=== PATIENT | male | born 1980 | race Caucasian/White ===

== ENCOUNTER 2017-05-19 03:57 | Emergency (ER) | payer OTHER ==
[2017-05-19 04:46] VITALS: BP 132/73; PULSE 75; TEMP 98.7; BMI 28.7
== END 2017-05-19 04:52 | disposition left against medical advice (07) ==
LOC: SUPCPDRO 03:57 → JER 03:57
DX: Z53.21 Procedure and treatment not carried out due to patient leaving prior to being seen by health care provider (principal)
CPT/HCPCS: 99281-25

== ENCOUNTER 2017-06-10 19:26 | Inpatient (IN) | payer OTHER ==
[2017-06-10 21:38] VITALS: BMI 31.0
--- NOTE | 2017-06-10 22:28 | HP ---
Admission ROS [facility] Chief Complaint: i am here for rehab from marijuana and pcp Allergies/Adverse Reactions: Allergies Allergy/AdvReac Type Severity Reaction Status Date / Time codeine AdvReac Verified 08/12/16 22:33 History of Present Illness: this 37 years old male with pcp and marijuana dependence,seekng rehab,never been been in treatment before but attending iop at [facility] nicotine dependence rupture of archilis tendon at age 21 anxiety depression - Ebola screening Have you traveled outside of the country in the last 21 days: No (N) Have you had contact with anyone from an Ebola affected area: No Have you been sick,other than usual withdrawal symptoms: No Do you have a fever: No - Review of Systems Constitutional: No Symptoms Reported EENT: reports: No Symptoms Reported Respiratory: reports: No Symptoms reported Cardiac: reports: No Symptoms Reported GI: reports: No Symptoms Reported : reports: No Symptoms Reported Musculoskeletal: reports: No Symptoms Reported Integumentary: reports: No Symptoms Reported Neuro: reports: No Symptoms reported Endocrine: reports: No Symptoms Reported Hematology: reports: No Symptoms Reported Psychiatric: reports: No Sypmtoms Reported (schizophrenia), Judgement Intact, Mood/Affect Appropiate, Anxious, Depressed, other Patient History - Patient Medical History Hx Anemia: No Hx Asthma: No Hx Chronic Obstructive Pulmonary Disease (COPD): No Hx Cancer: No Hx Cardiac Disorders: No Hx Congestive Heart Failure: No Hx Hypertension: No Hx Hypercholesterolemia: No Hx Pacemaker: No HX Cerebrovascular Accident: No Hx Seizures: No Hx Dementia: No Hx Diabetes: No Hx Liver Disease: No Hx Genitourinary Disorders: No Hx Sexually Transmitted Disorders: No Hx Renal Disease (ESRD): No Hx Thyroid Disease: No Hx Human Immunodeficiency Virus (HIV): No (last 04/19 negative) Hx Hepatitis C: No Hx Depression: Yes Hx Suicide Attempt: No Hx Bipolar Disorder: No Hx Schizophrenia: Yes (on meds) Other Medical History: no suicidal,no homicidal - Patient Surgical History Past Surgical History: Yes Hx Orthopedic Surgery: Yes (repair of achillis tendon left at age of 16 years) - PPD History Previous Implant?: Yes Documented Results: Negative w/o proof PPD to be Administered?: Yes - Smoking Cessation Smoking history: Current some day smoker Have you smoked in the past 12 months: Yes Aproximately how many cigarettes per day: 4 Hx Chewing Tobacco Use: No Initiated information on smoking cessation: Yes 'Breaking Loose' booklet given: 06/10/17 - Substance & Tx. History Hx Alcohol Use: No Hx Substance Use: No Substance Use Type: Marijuana Hx Substance Use Treatment: No - Substances Abused Marijuana/Hashish Route: Smoking Frequency: Daily Amount used: 100$ Age of first use: 17 Date of Last Use: 06/09/17 PCP Route: Smoking Frequency: Daily Age of first use: 18 Date of Last Use: 06/09/17 Family Disease History - Family Disease History Family History: Denies Admission Physical Exam [facility] - Vital Signs Vital Signs: Vital Signs - 24 hr 06/10/17 21:37 Temperature 98.0 F Pulse Rate 67 Respiratory 18 Rate Blood Pressure 112/72 - Physical General Appearance: Yes: Within Normal Limits HEENTM: Yes: Within Normal Limits, Normal ENT Inspection, LEILA Respiratory: Yes: Lungs Clear, Normal Breath Sounds, No Respiratory Distress Neck: Yes: Within Normal Limits, Supple, Trachea in good position Breast: Yes: Within Normal Limits Cardiology: Yes: Within Normal Limits, Regular Rhythm, Regular Rate, S1, S2 Abdominal: Yes: Within Normal Limits, Normal Bowel Sounds, Non Tender, Flat, Soft Genitourinary: Yes: Within Normal Limits Back: Yes: Within Normal Limits Musculoskeletal: Yes: Within Normal Limits, full range of Motion Extremities: Yes: Within Normal Limits, Normal Inspection, Normal Range of Motion Neurological: Yes: Within Normal Limits, auto clocks repairer II-XII NML intact, Alert Integumentary: Yes: Within Normal Limits Lymphatic: Yes: Within Normal Limits - Diagnostic (1) Cannabis dependence Current Visit: Yes Status: Acute (2) PCP dependence Current Visit: Yes Status: Acute (3) Nicotine dependence Current Visit: Yes Status: Acute (4) PTSD (post-traumatic stress disorder) Current Visit: Yes Status: Acute (5) Anxiety with depression Current Visit: Yes Status: Acute Cleared for Admission [facility] - Detox or Rehab Claeared for Rehab Admission: Yes [facility] Breath Alcohol Content Breath Alcohol Content: 0 Urine Drug Screen - Results Urine Drug Screen Results: THC-Marijuana, BZO-Benzodiazepines
[2017-06-10] MEDS ORDERED: MAGNESIUM HYDROX 2400MG/30ML ORAL SUSPENSION 30 ML CUP PO PRN (22:44)
[2017-06-10] MEDS ORDERED: LOPERAMIDE HCL 2 MG CAPSULE PO PRN (22:44)
[2017-06-10] MEDS ORDERED: IBUPROFEN 400 MG TABLET (FP) PO PRN (22:44)
[2017-06-10] MEDS ORDERED: MAGNESIUM CITRATE 300 ML BOTTLE PO PRN (22:44)
[2017-06-10] MEDS ORDERED: ACETAMINOPHEN 325 MG TABLET (FP) PO PRN (22:44)
[2017-06-10] MEDS ORDERED: guaiFENesin/D-METHORPHAN HB 10 ML UNIT-DOSE CUPS PO PRN (22:44)
[2017-06-10] MEDS ORDERED: hydrOXYzine PAMOATE 50 MG CAPSULE (FP) PO PRN (22:44)
[2017-06-10] MEDS ORDERED: MAG HYDROX/AL HYDROX/SIMETH 30 ML UNIT-DOSE CUP PO PRN (22:44)
[2017-06-10] MEDS ORDERED: MENTHOL/PHENOL 1 EACH UD MM PRN (22:44)
[2017-06-10] MEDS ORDERED: diphenhydrAMINE HCL 50 MG CAPSULE PO PRN (22:44)
[2017-06-10] MEDS ORDERED: P-EPHED 60MG/TRIPROLIDI 2.5MG TABLET PO PRN (22:44)
[2017-06-11] MEDS ORDERED: TUBERCULIN PPD 5 TU/0.1ML VIAL ID ONE (06:47)
[2017-06-11] MEDS: PRENATAL VITAMINS W/ FOLIC ACID TABLET (FP) PO SCH (11:04)
[2017-06-11 13:27] LABS: MCH 27.4 pg (25.7-33.7); MCHC 32.1 g/dl (32.0-35.9); MEAN CELL VOLUME 85.2 fl (80-96); MEAN PLT VOLUME 8.6 fl (7.5-11.1); PLATELET COUNT 347 K/MM3 (134-434); WHITE BLOOD COUNT 7.3 K/mm3 (4.0-10.0)
--- NOTE | 2017-06-11 13:32 | HP ---
Psychiatrist Admission - Data Date of interview: 06/11/17 Admission source: [facility] Identifying data: This is the first 5N inpatient rehab admission for this 37 year old single male residing in [place] with his parents, he is unemployed and father of 5. Medical History: Repaired of achillis tendon Lt at the age of 16 years, smokes cigarettes 4 a day. Psychiatric History: Patient is poor historian, he admits was hospiatlized twice , most recent last month at [facility] for deperssed mood for 7 days, reports was diagnosed as "depression, anxiety, ptsd and schizophrenia". He currently on Trazodone 100 mg po hs and Risperdal 1 mg daily. Physical/Sexual Abuse/Trauma History: Patient denies Additional Comment: Reports having multiple restraining orders due to his due to violent behaviors. Vital Signs: Vital Signs - 24 hr 06/10/17 06/11/17 06/11/17 21:37 03:30 06:59 Temperature 98.0 F 98.0 F Pulse Rate 67 76 Respiratory 18 18 18 Rate Blood Pressure 112/72 120/72 Allergies/Adverse Reactions: Allergies Allergy/AdvReac Type Severity Reaction Status Date / Time codeine AdvReac Verified 06/11/17 01:31 Date of last physical exam: 06/10/17 Concur with the findings of this exam: Yes - Substance Abuse/Tx History Hx Alcohol Use: No Hx Substance Use: Yes (PCP started at age of 18, daily use for $80) Substance Use Type: Marijuana (daily use , t=started at age of 17) Hx Substance Use Treatment: Yes ([facility]) - Admission Criteria Previous failed treatment: Yes Poor recovery environment: Yes Mental Status Exam - Mental Status Exam Alert and Oriented to: Time, Place, Person Cognitive Function: Grossly Intact Patient Appearance: Well Groomed Mood: Depressed, Sad, Irritable Affect: Appropriate, Mood Congruent, Flat, Constricted Patient Behavior: Cooperative Speech Pattern: Clear Voice Loudness: Normal Thought Process: Goal Oriented Thought Disorder: Not Present Hallucinations: Denies Suicidal Ideation: Denies Homicidal Ideation: Denies Insight/Judgement: Fair Sleep: Fair Appetite: Fair Muscle strength/Tone: Normal Gait/Station: Normal Psychiatric Findings - Problem List ([place] 1, 2,3) (1) Cannabis dependence Current Visit: Yes Status: Acute (2) Nicotine dependence Current Visit: Yes Status: Acute (3) PCP dependence Current Visit: Yes Status: Acute (4) PTSD (post-traumatic stress disorder) Current Visit: Yes Status: Acute (5) Schizoaffective disorder Current Visit: Yes Status: Acute - Initial Treatment Plan Initial Treatment Plan: will continue his current medications, monitor progress as needed.
[2017-06-11 13:36] LABS: ALBUMIN 3.2 g/dl (3.4-5.0); ALK PHOS 45 U/L (45-117); ANION GAP 6 (8-16); BILIRUBIN,TOTAL 0.3 mg/dL (0.2-1.0); CALCIUM 8.5 mg/dL (8.5-10.1); CO2 29 mmol/L (21-32); CREATININE 0.9 mg/dL (0.7-1.3); GLUCOSE,RANDOM 85 mg/dL (74-106); SGOT/AST 10 U/L (15-37); SGPT/ALT 22 U/L (12-78); TOT PROT 6.3 g/dl (6.4-8.2)
--- NOTE | 2017-06-11 14:50 | EKG ---
Test Reason : Blood Pressure : / mmHG Vent. Rate : 072 BPM Atrial Rate : 072 BPM P-R Int : 130 ms QRS Dur : 100 ms QT Int : 380 ms P-R-T Axes : 060 076 058 degrees QTc Int : 416 ms NORMAL SINUS RHYTHM NORMAL ECG WHEN COMPARED WITH ECG OF 13-AUG-2016 18:19, NO SIGNIFICANT CHANGE WAS FOUND Confirmed by SHRUTHI DIXON MD ([id number]) on 06/11/2017 2:49:48 PM Referred By: Confirmed By:SHRUTIH DIXON MD
[2017-06-11] MEDS: traZODone HCL 100 MG TABLET (FP) PO SCH (21:30)
[2017-06-11] MEDS: THIAMINE HCL 100 MG TABLET (FP) PO SCH (21:30)
[2017-06-12] MEDS: PRENATAL VITAMINS W/ FOLIC ACID TABLET (FP) PO SCH (12:25)
[2017-06-12] MEDS: risperiDONE 1 MG TABLET (FP) PO SCH (12:26)
[2017-06-12] MEDS: THIAMINE HCL 100 MG TABLET (FP) PO SCH (21:40)
[2017-06-12] MEDS: traZODone HCL 100 MG TABLET (FP) PO SCH (21:40)
[2017-06-13 07:14] VITALS: BP 113/65; PULSE 73; TEMP 97.6
[2017-06-13] MEDS: PRENATAL VITAMINS W/ FOLIC ACID TABLET (FP) PO SCH (10:04)
[2017-06-13] MEDS: risperiDONE 1 MG TABLET (FP) PO SCH (10:04)
--- NOTE | 2017-06-13 14:46 | PN ---
Psychiatric Progress Note Vital Signs: Vital Signs Period Temp Pulse Resp BP Sys/Reyes Pulse Ox Last 24 Hr 97.6 F 73 16-18 113/65 Date of Session: 06/13/17 Chief Complaint:: discharge visit HPI: Patient is a 37 year old male with history of cannabis, PCP, nicotine dependence comorbid PTSD and Schizoaffective disorder, reports that he decided to leave treatment AMA.. Current Medications: Active Medications Generic Name Dose Route Start Last Admin Trade Name Freq PRN Reason Stop Dose Admin Acetaminophen 650 mg 06/10/17 22:44 Tylenol - PO Q4H PRN PAIN Al Hydroxide/Mg Hydroxide 30 ml 06/10/17 22:44 Mylanta Oral Suspension - PO Q6H PRN DYSPEPSIA Diphenhydramine HCl 50 mg 06/10/17 22:44 Benadryl - PO HSMR1 PRN INSOMNIA Eucalyptus/Menthol/Phenol/Sorbitol 1 each 06/10/17 22:44 Cepastat Lozenge - MM Q4H PRN SORE THROAT Guaifenesin 10 ml 06/10/17 22:44 Robitussin Dm - PO Q6H PRN COUGH Hydroxyzine Pamoate 50 mg 06/10/17 22:44 Vistaril - PO Q4H PRN AGITATION Ibuprofen 400 mg 06/10/17 22:44 Motrin - PO Q6H PRN SEVERE PAIN Loperamide HCl 4 mg 06/10/17 22:44 Imodium - PO Q6H PRN DIARRHEA Magnesium Citrate 300 ml 06/10/17 22:44 Citroma - PO Q48H PRN CONSTIPATION Magnesium Hydroxide 30 ml 06/10/17 22:44 Milk Of Magnesia - PO DAILY PRN CONSTIPATION Multivit/Folic Acid/Iron 1 tab 06/11/17 10:00 06/13/17 10:04 Vitamins (Sjr) - PO Not Given DAILY D[facility]SON Pseudoephedrine/Triprolidine 1 combo 06/10/17 22:44 Actifed - PO TID PRN NASAL CONGESTION Risperidone 1 mg 06/12/17 10:00 06/13/17 10:04 Risperdal - PO Not Given DAILY DICKSON Thiamine HCl 100 mg 06/11/17 22:00 06/12/17 21:40 Vitamin B1 - PO Not Given HS DICKSON Trazodone HCl 100 mg 06/11/17 22:00 08/10/17 21:40 Desyrel - PO Not Given HS [facility] Current Side Effect: No Lab tests ordered: No Lab tests reviewed: Yes Provider note:: Met with the patient process his his decision, he reports that he needs ti take care of his personal issues, patient was encouraged to stay and focus on his recovery but adamant to leave. Patient responded well to Risperdal and Trazodone, not side-effects reported, scripts e-transferred to his pharmacy. Patient is stable for AMA. Total face to face time:: 20 Mental Status Exam - Mental Status Exam Alert and Oriented to: Time, Place, Person Cognitive Function: Grossly Intact Patient Appearance: Well Groomed Mood: Hopeful Affect: Appropriate, Mood Congruent Patient Behavior: Appropriate, Cooperative Speech Pattern: Clear, Appropriate Voice Loudness: Normal Thought Process: Goal Oriented Thought Disorder: Not Present Hallucinations: Denies Suicidal Ideation: Denies Homicidal Ideation: Denies Insight/Judgement: Fair Sleep: Fair Appetite: Fair Muscle strength/Tone: Normal Gait/Station: Normal Psychiatric Treatment Plan - Problem List (1) Cannabis dependence Current Visit: Yes (2) Nicotine dependence Current Visit: Yes (3) PCP dependence Current Visit: Yes (4) PTSD (post-traumatic stress disorder) Current Visit: Yes (5) Schizoaffective disorder Current Visit: Yes
[2017-06-13 16:11] LABS: URINE APPEARANCE CLEAR; URINE BILIRUBIN NEGATIVE (NEGATIVE); URINE BLOOD NEGATIVE (NEGATIVE); URINE COLOR LTYELLOW; URINE GLUCOSE (UA) NEGATIVE (NEGATIVE); URINE KETONE NEGATIVE (NEGATIVE); URINE LEUK ESTERASE NEGATIVE (NEGATIVE); URINE NITRITE NEGATIVE (NEGATIVE); URINE PROTEIN NEGATIVE (NEGATIVE); URINE UROBILINOGEN NEGATIVE mg/dL (0.2-1.0)
== END 2017-06-13 15:15 | disposition left against medical advice (07) | DRG 770 ==
LOC: YASAS 19:26 → UNDOADMIN 21:47 → Y3W 21:47 → Y5N 22:56
PROVIDERS: ADMIT Psychiatry & Neurology Psychiatry; ATTEND Psychiatry & Neurology Psychiatry
PROC: HZ42ZZZ Group Counseling for Substance Abuse Treatment, Cognitive-Behavioral (ICD-10-PCS; principal; 2017-06-10)
DX: F16.20 Hallucinogen dependence, uncomplicated (principal); F12.20 Cannabis dependence, uncomplicated; F17.210 Nicotine dependence, cigarettes, uncomplicated; F41.8 Other specified anxiety disorders; F43.10 Post-traumatic stress disorder, unspecified; F25.9 Schizoaffective disorder, unspecified; Z88.5 Allergy status to narcotic agent
CPT/HCPCS: 36415; 80053; 81003; 85027; 86593; 93005; 93010

== ENCOUNTER 2017-07-12 16:24 | Emergency (ER) | payer OTHER ==
[2017-07-12 16:34] VITALS: BP 134/90; PULSE 107; TEMP 98.4; BMI 31.1
[2017-07-12] MEDS ORDERED: IBUPROFEN 600 MG TABLET (FP) PO ONE (16:57)
[2017-07-12] MEDS: IBUPROFEN 600 MG TABLET (FP) PO ONE ×2 (17:08→17:24)
[2017-07-12] MEDS ORDERED: IBUPROFEN 400 MG TABLET (FP) PO ONE ×2 (17:15→17:20)
[2017-07-12] MEDS ORDERED: diazePAM 5 MG TABLET PO ONE (17:16)
--- NOTE | 2017-07-12 17:18 | PDOC ---
"History of Present Illness - General Chief Complaint: Back Pain Stated Complaint: BACK PAIN Time Seen by Provider: 07/12/17 16:48 History Source: Patient Exam Limitations: No Limitations - History of Present Illness Initial Comments: 07/12/17 17:21 My chief complaint: Right sided neck pain and right upper back pain with stiffness of neck History of present illness: Patient is a 37-year-old male with a history of anxiety and depression and and drug abuse with cannabis and PCP here today complaining of right lateral neck and upper back pain since turning his head in taking pictures. Patient reports having a herniated disc of C6-C7. Patient denies any radiation of pain down arms or legs or any weakness of arms. Patient denies any numbness of arms. Patient is keeping his health head tilted towards the right. Timing/Duration: getting worse Severity: severe (RT. SIDED NECK PAIN AND UPPER BACK PAIN ) Associated Symptoms: reports: denies symptoms Past History - Past Medical History Allergies/Adverse Reactions: Allergies Allergy/AdvReac Type Severity Reaction Status Date / Time codeine AdvReac Verified 07/12/17 16:34 Home Medications: Ambulatory Orders Risperidone [Risperdal] 1 mg PO DAILY 06/10/17 Trazodone HCl [Desyrel -] 100 mg PO HS 06/10/17 Risperidone [Risperdal -] 1 mg PO DAILY #30 tablet 06/13/17 Trazodone HCl [Desyrel -] 100 mg PO HS #30 tablet 06/13/17 Anemia: No Asthma: No Cancer: No Cardiac Disorders: No CVA: No COPD: No CHF: No Dementia: No Diabetes: No GI Disorders: No Disorders: No HTN: No Hypercholesterolemia: No Kidney Stones: No Liver Disease: No Psychiatric Problems: Yes (h/o anxiety/depression ) Suicide Attempt (Hx): No Seizures: No Thyroid Disease: No - Surgical History Abdominal Surgery: No Appendectomy: No Cardiac Surgery: No Cholecystectomy: No Lung Surgery: No Neurologic Surgery: No Orthopedic Surgery: Yes (repair of achillis tendon left at age of 16 years) - Reproductive History Testicular Surgery: No - Immunization History Immunization Up to Date: Yes - Psycho/Social/Smoking Cessation Hx Anxiety: No Suicidal Ideation: No Smoking History: Never smoked Have you smoked in the past 12 months: Yes Number of Cigarettes Smoked Daily: 4 'Breaking Loose' booklet given: 06/10/17 Hx Alcohol Use: No Drug/Substance Use Hx: No Substance Use Type: None Hx Substance Use Treatment: Yes ([facility]) Review of Systems - Review of Systems Able to Perform ROS?: Yes Constitutional: No: Symptoms Reported HEENTM: No: Symptoms Reported Respiratory: No: Symptoms reported Cardiac (ROS): No: Symptoms Reported ABD/GI: No: Symptoms Reported : No: Symptoms Reported Musculoskeletal: Yes: Back Pain (rt. upper back pian ), Neck Pain (rt. sided lateral neck pain ) Integumentary: No: Symptoms Reported Neurological: No: Symptoms reported *Physical Exam - Vital Signs Last Vital Signs Temp Pulse Resp BP Pulse Ox 98.4 F 107 H 20 134/90 98 07/12/17 16:31 07/12/17 16:31 07/12/17 16:31 07/12/17 16:31 07/12/17 16:31 - Physical Exam General Appearance: Yes: Appropriately Dressed Neck: positive: Tender (rt. lateral ), Tender lateral (rt. lateral neck ). negative: Lymphadenopathy (R), Lymphadenopathy (L), Rigidity Respiratory/Chest: positive: Lungs Clear, Normal Breath Sounds. negative: Chest Tender, Respiratory Distress Cardiovascular: positive: Regular Rhythm, Regular Rate, S1, S2 Musculoskeletal: positive: Normal Inspection. negative: CVA Tenderness, CVA Tenderness (R), CVA Tenderness (L), Decreased Range of Motion, Vertebral Tenderness Extremity: positive: Normal Capillary Refill, Normal Inspection, Normal Range of Motion, Tender (rt. upper thoracic paraspinal muscle tenderness) Integumentary: positive: Normal Color Neurologic: positive: Alert, Normal Response, Motor Strength 5/5 (upper extremities), Responsive. negative: Respond to painful stimul, Numbness, Sensory Deficit (arms ) ED Treatment Course - Medications Given in the ED: ED Medications Discontinued Medications Generic Name Dose Route Start Last Admin Trade Name Freq PRN Reason Stop Dose Admin Ibuprofen 600 mg 07/12/17 16:56 07/12/17 17:08 Motrin - PO 07/12/17 16:57 600 mg ONCE ONE Administration Medical Decision Making - Medical Decision Making 07/12/17 17:24 Patient is a 37-year-old male with a history of anxiety and depression and and drug abuse with cannabis and PCP here today complaining of right lateral neck and upper back pain since turning his head in taking pictures. Patient reports having a herniated disc of C6-C7. Patient denies any radiation of pain down arms or legs or any weakness of arms. Patient denies any numbness of arms. Patient is keeping his health head tilted towards the right. 07/12/17 17:26 Right lateral neck pain with muscle spasm Right upper back pain PLAN: xray cervical spine pain STRAIGHTENING OF NORMAL CERVICAL CURVATURE ibuprofen 800 mg po now valium 5 mg po now 07/12/17 18:24 LEAD MAINTENANCE TECHNICIAN CHECKED ta Detail Level: Printer-Friendly View Extended View Confidential Drug Utilization Report Search Terms: Rajendra Cruz, 1980 Search Date: 07/12/2017 05:59:33 PM The Drug Utilization Report below displays all of the controlled substance prescriptions, if any, that your patient has filled in the last twelve months. The information displayed on this report is compiled from pharmacy submissions to the Department, and accurately reflects the information as submitted by the pharmacies. This report was requested by: Leny Bah | Reference #: [id number] 07/12/17 18:50 07/12/17 19:17 PT. REQUESTING PERCOCET DUE TO PT BEING IN [facility] IN 06/19 TOLD PT. I WOULD ORDER CYCLOBENZAPRINE AND NAPROSYN HE DOES NOT WANT THESE MEDICATIONS SAYS HE HAS NAPROSYN AT HOME PT WILL FOLLOW UP WITH HIS LEAD MAINTENANCE TECHNICIAN ON DOES NOT WANT ORTH REFERRAL *DC/Admit/Observation/Transfer Diagnosis at time of Disposition: Neck pain on right side, Acute upper back pain - Discharge Dispostion Disposition: HOME Condition at time of disposition: Stable - Patient Instructions Additional Instructions: Take ibuprofen or Naprosyn as directed by nuclear waste management engineer for pain Avoid any strenuous activities or exercise Return to emergency room if at any worsening symptoms or numbness of arms or hands Patient voiced understanding of discharge instructions and all questions were answered"
[2017-07-12] MEDS ORDERED: diazePAM 5 MG TABLET ONE (17:20)
== END 2017-07-12 19:25 | disposition home or self-care (01) ==
LOC: JERFT 16:24
DX: M54.2 Cervicalgia (principal); M62.830 Muscle spasm of back
CPT/HCPCS: 72050-TC; 99281-25

== ENCOUNTER 2017-07-15 03:26 | Emergency (ER) | payer OTHER ==
[2017-07-15] MEDS ORDERED: IBUPROFEN 400 MG TABLET (FP) PO ONE (03:51)
--- NOTE | 2017-07-15 03:51 | PDOC ---
History of Present Illness - General Stated Complaint: NECK PAIN History Source: Patient Exam Limitations: No Limitations - History of Present Illness Initial Comments: 07/15/17 03:54 37y M hx of cervical radiculopathy at C6/7 presents with back pain. The pt states he has been following up at [facility] for his back pain and was referred for PT/pain management but was locked up before he could continue. He comes today due to persistent intermittent neck pain, pt does endorse some radaition of pain down the top of his L armt hat is a tingling sensation. No weakness, fever/chills, n/v, back pain. symtoms are exacerbated when he turnis his head quickly pt unchanged from prior. pt not taking any OTC meds at home. denies any urinary or bowel incontinence Past History - Past Medical History Allergies/Adverse Reactions: Allergies Allergy/AdvReac Type Severity Reaction Status Date / Time codeine AdvReac Verified 07/15/17 03:47 Home Medications: Ambulatory Orders Cyclobenzaprine HCl [Flexeril -] 10 mg PO BID PRN #15 tablet 07/15/17 Ibuprofen [Motrin -] 600 mg PO TID #15 tablet 07/15/17 Anemia: No Asthma: No Cancer: No Cardiac Disorders: No CVA: No COPD: No CHF: No Dementia: No Diabetes: No GI Disorders: No Disorders: No HTN: No Hypercholesterolemia: No Kidney Stones: No Liver Disease: No Psychiatric Problems: Yes (h/o anxiety/depression ) Suicide Attempt (Hx): No Seizures: No Thyroid Disease: No - Surgical History Abdominal Surgery: No Appendectomy: No Cardiac Surgery: No Cholecystectomy: No Lung Surgery: No Neurologic Surgery: No Orthopedic Surgery: Yes (repair of achillis tendon left at age of 16 years) - Reproductive History Testicular Surgery: No - Immunization History Immunization Up to Date: Yes - Psycho/Social/Smoking Cessation Hx Anxiety: No Suicidal Ideation: No Smoking History: Never smoked Have you smoked in the past 12 months: No Number of Cigarettes Smoked Daily: 4 Information on smoking cessation initiated: No 'Breaking Loose' booklet given: 06/10/17 Hx Alcohol Use: No Drug/Substance Use Hx: No Substance Use Type: None Hx Substance Use Treatment: Yes ([facility]) Review of Systems - Review of Systems Able to Perform ROS?: Yes Comments:: 07/15/17 03:55 Constitutional - no reported Fever, Chills, HEENT: +neck pain with L arm tinglingno reported vision changes, sore throat Respiratory: no reported cough, sob, hemoptysis Cardiac: no reported chest pain, palpitations, light headedness, leg swelling Abd/GI: no reported abd pain, nausea, vomiting, blood per rectum, melena, diarrhea : no reported dysuria, frequency, discharge Musculskelatal - no reported back pain, joint swelling skin - no reported bruising, erythema, rash neurological: no reported headache, numbness, focal weakness, ataxia, hematologic: no reported anemia, easy bruising, easy bleeding *Physical Exam - Vital Signs Last Vital Signs Temp Pulse Resp BP Pulse Ox 98.7 F 90 14 142/86 99 07/15/17 03:47 07/15/17 03:47 07/15/17 03:47 07/15/17 03:47 07/15/17 03:47 - Physical Exam Comments: 07/15/17 03:56 GENERAL: The patient is awake, alert, and fully oriented, Nontoxic - in no acute distress. HEAD: Normocephalic, atraumatic. EYES: extraocular movements intact, sclera anicteric, conjunctiva clear. NECK/back: Normal range of motion, supple, no focal bony tenderness EXTREMITIES: Normal range of motion, no edema. No clubbing or cyanosis. No cords, erythema, or tenderness. NEUROLOGICAL: strength intact with wide area network administrator strength elbow flexion/extension, shoulder flexion/exntesion, sensation intact and symmetric in upper and lower extreities. Medical Decision Making - Medical Decision Making 07/15/17 03:57 suspect exacerbation of his cervical radiculopathy will give NSAIDS and muscle relaxant pt has standing apt with his doctor on friday supportive care at home I discussed the physical exam findings, ancillary test results and final diagnoses with the patient. I answered all of the patient's questions. The patient was satisfied with the care received and felt comfortable with the discharge plan and treatment plan. The patient will call their primary care physician within 24 hours to arrange follow-up and will return to the Emergency Department with any new, persistent or worsening symptoms. *DC/Admit/Observation/Transfer Diagnosis at time of Disposition: Cervical radiculopathy at C6 - Discharge Dispostion Disposition: HOME Condition at time of disposition: Improved Admit: No - Prescriptions Prescriptions: Cyclobenzaprine HCl [Flexeril -] 10 mg PO BID PRN #15 tablet PRN Reason: Pain Ibuprofen [Motrin -] 600 mg PO TID #15 tablet - Referrals Referrals: [facility] [Provider Group] - Patient Instructions Printed Discharge Instructions: DI for Cervical Radiculopathy Additional Instructions: Return to the emergency department immediately with ANY new, persistent or worsening symptoms. Take motrin and tylenol as needed for your pain. Use flexeril as prescribed use a heating pad for comfort. You MUST call and follow up with your doctor at the [facility] for further evaluation of your symptoms. Results were discussed with you. Please make sure your doctor reviews the results of your emergency evaluation. Print Language: PORTUGUESE
[2017-07-15] MEDS ORDERED: CYCLOBENZAPRINE HCL 10 MG TABLET (FP) PO ONE (03:52)
[2017-07-15] MEDS ORDERED: CYCLOBENZAPRINE HCL 10 MG TABLET (FP) ONE (03:57)
[2017-07-15] MEDS ORDERED: IBUPROFEN 600 MG TABLET (FP) PO ONE (03:58)
[2017-07-15 04:08] VITALS: BP 142/86; PULSE 90; TEMP 98.7; BMI 31.9
== END 2017-07-15 04:20 | disposition home or self-care (01) ==
LOC: JER 03:26
DX: M54.12 Radiculopathy, cervical region (principal)
CPT/HCPCS: 99281-25

== ENCOUNTER 2017-07-24 06:16 | Emergency (ER) | payer OTHER ==
[2017-07-24 06:29] VITALS: TEMP 98.7; BMI 31.9
[2017-07-24] MEDS ORDERED: KETOROLAC TROMETHAMINE 60 MG/2 ML VIAL IM ONE (07:21)
--- NOTE | 2017-07-24 07:26 | PDOC ---
History of Present Illness - General Chief Complaint: Pain, Acute Stated Complaint: NECK PAIN Time Seen by Provider: 07/24/17 07:18 History Source: Patient Exam Limitations: No Limitations - History of Present Illness Initial Comments: 07/24/17 07:21 37 yr male with chronic pain to his neck states "herniated disc" for over one year. Pt states he was "locked up" and has not had any treatment . Pt was seen in ER last week for same. Pt has appointment next week with is PMD. Pt has no PMHX, no allergies. Pt states pain radiates to the left arm causing numbness and tingling to the left arm, nv intact. 07/24/17 07:22 07/24/17 07:45 Severity: reports: moderate Pain Location: reports: neck Method of Injury: Yes: unknown Modifying Factors: improves with: None Loss of Consciousness: no loss of consciousness Associated Symptoms (Fall): denies symptoms Past History - Past Medical History Allergies/Adverse Reactions: Allergies Allergy/AdvReac Type Severity Reaction Status Date / Time codeine AdvReac Verified 07/24/17 06:26 Home Medications: Ambulatory Orders Cyclobenzaprine HCl [Flexeril -] 10 mg PO BID PRN #15 tablet 07/15/17 Ibuprofen [Motrin -] 600 mg PO TID #15 tablet 07/15/17 Cyclobenzaprine HCl [Flexeril -] 10 mg PO TID PRN #21 tablet 07/24/17 Ketorolac Tromethamine [Toradol] 10 mg PO Q6H PRN #16 tablet 07/24/17 Anemia: No Asthma: No Cancer: No Cardiac Disorders: No CVA: No COPD: No CHF: No Dementia: No Diabetes: No GI Disorders: No Disorders: No HTN: No Hypercholesterolemia: No Kidney Stones: No Liver Disease: No Psychiatric Problems: Yes (h/o anxiety/depression ) Seizures: No Thyroid Disease: No - Surgical History Abdominal Surgery: No Appendectomy: No Cardiac Surgery: No Cholecystectomy: No Lung Surgery: No Neurologic Surgery: No Orthopedic Surgery: Yes (repair of achillis tendon left at age of 16 years) - Reproductive History Testicular Surgery: No - Immunization History Immunization Up to Date: Yes - Suicide/Smoking/Psychosocial Hx Smoking History: Current every day smoker Have you smoked in the past 12 months: No Number of Cigarettes Smoked Daily: 20 Information on smoking cessation initiated: No 'Breaking Loose' booklet given: 06/10/17 Hx Alcohol Use: No Drug/Substance Use Hx: No Substance Use Type: None Hx Substance Use Treatment: Yes ([facility]) Trauma Specific PMHX - Complaint Specific PMHX Arthritis: No *Physical Exam - Vital Signs Last Vital Signs Temp Pulse Resp BP Pulse Ox 98.7 F 105 H 14 127/83 95 07/24/17 06:27 07/24/17 06:27 07/24/17 06:27 07/24/17 06:07/24/17 06:27 - Physical Exam General Appearance: Yes: Nourished, Appropriately Dressed HEENT: positive: EOMI, LEILA, Normal ENT Inspection, Symmetrical, TMs Normal, Pharynx Normal Neck: positive: Tender, Supple, Tender lateral. negative: Decreased range of motion (FROM of the neck ), Rigidity Respiratory/Chest: positive: Lungs Clear, Normal Breath Sounds. negative: Chest Tender, Accessory Muscle Use Cardiovascular: positive: Regular Rhythm, Regular Rate Gastrointestinal/Abdominal: positive: Normal Bowel Sounds, Soft Musculoskeletal: positive: Normal Inspection. negative: CVA Tenderness, CVA Tenderness (R), Decreased Range of Motion, Muscle Spasm, Vertebral Tenderness Extremity: positive: Normal Capillary Refill, Normal Inspection, Normal Range of Motion, Other (strength intact to bilateral UE, nv intact ). 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 pt ambulatory with steady gait. *DC/Admit/Observation/Transfer Diagnosis at time of Disposition: Chronic neck pain - Discharge Dispostion Disposition: HOME Condition at time of disposition: Good - Prescriptions Prescriptions: Cyclobenzaprine HCl [Flexeril -] 10 mg PO TID PRN #21 tablet PRN Reason: Muscle Spasms Ketorolac Tromethamine [Toradol] 10 mg PO Q6H PRN #16 tablet PRN Reason: Pain - Referrals Referrals: Justin Yu MD [Staff Physician] - - Patient Instructions Additional Instructions: please follow with your doctor as planned or with the orthopedist for further evaluation of neck pain avoid heavy lifting or bending, apply warm compresses to the back of your neck every 3hrs for 20 minutes this can help with pain take the medication as prescribed DO NOT DRIVE, OPERATE MACHINERY OR DRINK ALCOHOL WHILE TAKING FLEXERIL
[2017-07-24] MEDS ORDERED: KETOROLAC TROMETHAMINE 60 MG/2 ML VIAL ONE (07:42)
[2017-07-24] MEDS ORDERED: CYCLOBENZAPRINE HCL 5 MG TABLET PO STA (07:46)
[2017-07-24] MEDS ORDERED: CYCLOBENZAPRINE HCL 10 MG TABLET (FP) ONE (07:48)
[2017-07-24 08:51] VITALS: BP 122/75; PULSE 75
== END 2017-07-24 08:51 | disposition home or self-care (01) ==
LOC: JER 06:16
PROC: 3E0233Z Introduction of Anti-inflammatory into Muscle, Percutaneous Approach (ICD-10-PCS; principal; 2017-07-24)
DX: M54.2 Cervicalgia (principal); G89.29 Other chronic pain; F41.8 Other specified anxiety disorders; F17.210 Nicotine dependence, cigarettes, uncomplicated
CPT/HCPCS: 99284-25

== ENCOUNTER 2017-07-31 00:12 | Emergency (ER) | payer OTHER ==
--- NOTE | 2017-07-31 01:17 | PDOC ---
History of Present Illness - General Stated Complaint: MIGRAINE & NECK PAIN Time Seen by Provider: 07/31/17 01:17 - History of Present Illness Initial Comments: 37 year old male with PMH of cervical radiculopathy at C6-C7 presents with pain in the same area. States that he fell one week prior and was imaged here which revealed moderate C6-C7 disk degeneration. He was given flexeril and ibuprofen with some relief. He keeps missing his primary care and other supportive medical appointments secondary to legal issues. He is not complaining of any radicular symptoms currently and only admits to localized pain around his lower cervical spine and some headaches. Denies fevers, chills, nausea, vomiting, diarrhea, cough, or other sick symptoms. 07/31/17 03:14 Past History - Past Medical History Allergies/Adverse Reactions: Allergies Allergy/AdvReac Type Severity Reaction Status Date / Time codeine AdvReac Verified 07/31/17 01:35 Home Medications: Ambulatory Orders Cyclobenzaprine HCl [Flexeril -] 10 mg PO BID PRN #15 tablet 07/15/17 Ibuprofen [Motrin -] 600 mg PO TID #15 tablet 07/15/17 Cyclobenzaprine HCl [Flexeril -] 10 mg PO TID PRN #21 tablet 07/24/17 Ketorolac Tromethamine [Toradol] 10 mg PO Q6H PRN #16 tablet 07/24/17 Anemia: No Asthma: No Cancer: No Cardiac Disorders: No CVA: No COPD: No CHF: No Dementia: No Diabetes: No GI Disorders: No Disorders: No HTN: No Hypercholesterolemia: No Kidney Stones: No Liver Disease: No Psychiatric Problems: Yes (h/o anxiety/depression ) Seizures: No Thyroid Disease: No - Surgical History Abdominal Surgery: No Appendectomy: No Cardiac Surgery: No Cholecystectomy: No Lung Surgery: No Neurologic Surgery: No Orthopedic Surgery: Yes (repair of achillis tendon left at age of 16 years) - Reproductive History Testicular Surgery: No - Immunization History Immunization Up to Date: Yes - Suicide/Smoking/Psychosocial Hx Smoking History: Current every day smoker Have you smoked in the past 12 months: No Number of Cigarettes Smoked Daily: 20 'Breaking Loose' booklet given: 06/10/17 Hx Alcohol Use: No Drug/Substance Use Hx: No Substance Use Type: None Hx Substance Use Treatment: Yes ([facility]) Review of Systems - Review of Systems Constitutional: No: Chills, Diaphoresis, Fever, Loss of Appetite HEENTM: No: Blurred Vision, Tearing, Recent change in vision, Double Vision Respiratory: No: Cough, Shortness of Breath, Stridor, Wheezing, Productive cough Cardiac (ROS): No: Chest Pain, Irregular Heart Rate, Syncope, Chest Tightness ABD/GI: No: Constipated, Diarrhea, Nausea, Vomiting, Indigestion : No: Burning, Dysuria, Discharge Musculoskeletal: Yes: Back Pain Integumentary: No: Bruising, Lesions, Lumps Neurological: Yes: Headache, Numbness, Paresthesia *Physical Exam - Physical Exam General Appearance: Yes: Nourished, Appropriately Dressed. No: Apparent Distress HEENT: positive: EOMI, LEILA, Normal ENT Inspection, Normal Voice Neck: positive: Tender (Tender over lower c-spine paraspinal musculature), Trachea midline, Supple Respiratory/Chest: positive: Lungs Clear, Normal Breath Sounds. negative: Chest Tender, Respiratory Distress, Accessory Muscle Use Cardiovascular: positive: Regular Rhythm, Regular Rate, S1, S2. negative: Edema , Murmur Gastrointestinal/Abdominal: positive: Normal Bowel Sounds, Flat, Soft. negative : Tender Musculoskeletal: negative: Normal Inspection (Per above but has full range of motion at neck.) Extremity: positive: Normal Inspection, Normal Range of Motion Integumentary: positive: Normal Color, Dry, Warm Neurologic: positive: pouncer machine II-XII NML intact, Fully Oriented, Alert, Normal Mood/ Affect, Normal Response, Motor Strength 5/5 Medical Decision Making - Medical Decision Making 37 year old male with seemingly chronic pain in his neck from degenerative disk disease corroborated on imaging as recently as 10 days ago on our imaging system. No new concerning findings from his previous visits. Admits that he hasn 't been able to establish primary care because of legal issues. Reinforced need fro PCP establishment. Pain resolved after 30MG Toradol IM x 2 and lidocaine patch placed over lower c-spine. Will DC home with instructions to follow up with PCP. 07/31/17 03:30 *DC/Admit/Observation/Transfer Diagnosis at time of Disposition: Cervicalgia - Discharge Dispostion Disposition: HOME Condition at time of disposition: Improved Admit: No - Patient Instructions Printed Discharge Instructions: DI for Cervical Radiculopathy Additional Instructions: Please use your medications as previously prescribed. You need to also follow up with your PCP who will then refer you to orthopedic surgery for you neck pain.
--- NOTE | 2017-07-31 01:30 | PDOC ---
Attending Attestation - Resident Resident Name: Bethel Hargrove - ED Attending Attestation I have performed the following: I have examined & evaluated the patient, The case was reviewed & discussed with the resident, I agree w/resident's findings & plan, Exceptions are as noted - HPI HPI: 07/31/17 01:29 Pt is here for chronic pain. Seen recently for same neck pain from his last visit. - Physicial Exam PE: 07/31/17 01:29 *Physical Exam General Appearance: Yes: Appropriately Dressed. No: Apparent Distress, Intoxicated HEENT: positive: EOMI, LEILA, Normal ENT Inspection, Normal Voice, TMs Normal, Pharynx Normal. negative: Pale Conjunctivae, Photophobia, Scleral Icterus (R), Scleral Icterus (L) Neck: positive: Trachea midline, Normal Thyroid, Supple. negative: Tender, Rigid, Carotid bruit, Stridor, Lymphadenopathy (R), Lymphadenopathy (L), Thyromegaly Respiratory/Chest: positive: Lungs Clear, Normal Breath Sounds. negative: Chest Tender, Respiratory Distress, Accessory Muscle Use, Labored Respiration, RES, Crackles, Rales, Rhonchi, Stridor, Wheezing, Dullness Cardiovascular: positive: Regular Rhythm, Regular Rate, S1, S2. negative: Edema , JVD, Murmur, Bradycardia, Tachycardia Vascular Pulses: Dorsalis-Pedis (R): 2+, Doralis-Pedis (L): 2+ Gastrointestinal/Abdominal: positive: Normal Bowel Sounds, Flat, Soft. negative : Tender, Organomegaly, Pulsatile Mass, Increased Bowel Sounds, Decreased BS, Distended, Guarding, Rebound, Hernia, Hepatomegaly, Spleenomegaly Lymphatic: negative: Adenopathy, Tenderness Musculoskeletal: positive: Normal Inspection. negative: CVA Tenderness, Decreased Range of Motion Extremity: positive: Normal Capillary Refill, Normal Inspection, Normal Range of Motion, Pelvis Stable. negative: Tender, Pedal Edema, Swelling, Erythema Integumentary: positive: Normal Color, Dry, Warm. 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 negative: EOM Palsy, Facial Droop, Sensory Deficit - Medical Decision Making 07/31/17 19:30 Pt discharged to follow up with his pcp
[2017-07-31] MEDS ORDERED: KETOROLAC TROMETHAMINE 30 MG/1 ML VIAL IM ONE ×2 (01:32→03:14)
[2017-07-31 01:38] VITALS: BP 124/84; PULSE 84; TEMP 97.4; BMI 28.1
[2017-07-31] MEDS ORDERED: KETOROLAC TROMETHAMINE 30 MG/1 ML VIAL ONE ×2 (02:28→04:00)
[2017-07-31] MEDS ORDERED: LIDOCAINE 5% TOPICAL PATCH TP ONE (03:16)
[2017-07-31] MEDS ORDERED: LIDOCAINE PATCH REMOVAL MC SCH (22:00)
== END 2017-07-31 04:57 | disposition home or self-care (01) ==
LOC: JER 00:12
PROC: 3E0233Z Introduction of Anti-inflammatory into Muscle, Percutaneous Approach (ICD-10-PCS; principal; 2017-07-31)
DX: M54.2 Cervicalgia (principal); F41.8 Other specified anxiety disorders; F17.210 Nicotine dependence, cigarettes, uncomplicated
CPT/HCPCS: 99281-25

== ENCOUNTER 2017-08-03 21:52 | Emergency (ER) | payer OTHER ==
[2017-08-03 22:17] VITALS: TEMP 98.2; BMI 31.9
--- NOTE | 2017-08-04 00:03 | PDOC ---
History of Present Illness - General Chief Complaint: Suicidal Stated Complaint: DEPRESSED Time Seen by Provider: 08/03/17 23:11 History Source: Patient Exam Limitations: No Limitations - History of Present Illness Initial Comments: 37y M hx of psychosis, schizophrenia, bipolar disorder presents with SI. Pt states that he stopped taking his medications last week, took an over dose of his meds, was admitted to [facility], and transferred to [place], saw a psychiatrist and was discharged. he states he has bee nfeeling depressed for the past few days and again feels suicidal. The pt denies taking any medications today or yesterday. The pt states there are personal issues making him depressed but refuses to elaborate. Past History - Past Medical History Allergies/Adverse Reactions: Allergies codeine Adverse Reaction (Verified 08/03/17 23:27) Home Medications: Ambulatory Orders Cyclobenzaprine HCl [Flexeril -] 10 mg PO BID PRN #15 tablet 07/15/17 Ibuprofen [Motrin -] 600 mg PO TID #15 tablet 07/15/17 Cyclobenzaprine HCl [Flexeril -] 10 mg PO TID PRN #21 tablet 07/24/17 Ketorolac Tromethamine [Toradol] 10 mg PO Q6H PRN #16 tablet 07/24/17 - Immunization History Immunization Up to Date: Yes Tetanus Status: Unknown - Social History Smoking Status: Unknown if ever smoked Number of Cigarettes Per Day: 20 *Review of Systems - Review of Systems Able to Perform ROS?: Yes Comments:: 08/04/17 00:02 Constitutional - no reported Fever, Chills, HEENT: no reported vision changes, sore throat Respiratory: no reported cough, sob, hemoptysis Cardiac: no reported chest pain, palpitations, light headedness, leg swelling Abd/GI: no reported abd pain, nausea, vomiting, blood per rectum, melena, diarrhea : no reported dysuria, frequency, discharge Musculskelatal - no reported back pain, joint swelling skin - no reported bruising, erythema, rash neurological: no reported headache, numbness, focal weakness, tingling, ataxia, hematologic: no reported anemia, easy bruising, easy bleeding Psychiatric: +si, - hi *Physical Exam - Vital Signs Last Vital Signs Temp Pulse Resp BP Pulse Ox 98.2 F 79 18 128/70 99 08/03/17 22:15 08/03/17 22:15 08/03/17 22:15 08/03/17 22:15 08/03/17 22:15 - Physical Exam Comments: 08/04/17 00:02 GENERAL: The patient is awake, alert, and fully oriented, Nontoxic - in no acute distress. HEAD: Normocephalic, atraumatic. EYES: extraocular movements intact, sclera anicteric, conjunctiva clear. ENT: Normal voice, Moist mucous membranes. NECK: Normal range of motion, supple LUNGS: Breath sounds equal, clear to auscultation bilaterally. No wheezes, no rhonchi, no rales. HEART: Regular rate and rhythm, normal S1 and S2 without murmur, rub or gallop. ABDOMEN: Soft, nontender, normoactive bowel sounds. No guarding, no rebound. . No CVA tenderness EXTREMITIES: Normal range of motion, no edema. No clubbing or cyanosis. No cords, erythema, or tenderness. NEUROLOGICAL: No facial assymetry, Normal speech, PSYCH: agitated affect. SKIN: Warm, Dry, normal turgor, Plan - Progress Note Progress Note: 08/04/17 00:03 pt put on 1:1 will ck labs to r/o coingestants will consult psych 08/04/17 02:05 labs unremarakble awaiting psych consult dr. goetz was paged ekg shows no interval widening will sign pt out to dr. sam 08/04/17 02:07 ekg interpretation: Twelve-lead EKG was performed and reviewed by me. There is normal sinus rhythm with a rate of 59 The axis is normal. The intervals are normal. There is normal R wave progression Impression: sinus bradicardia - Order(s) Order(s): Orders last 12 hours Category Date Time Status EKG [ELECTROCARDIOGRAM] [CARD] Stat Cardiology 08/04/17 00:00 Ordered CBC WITH DIFFERENTIAL Stat Lab 08/03/17 23:58 Ordered - Laboratory CBC & Chemistry Diagram: 08/04/17 00:13 08/04/17 00:13 *DC/Admit/Observation/Transfer Diagnosis at time of Disposition: Bipolar disorder - Discharge Dispostion Disposition: [facility] Condition at time of disposition: Unchanged/Unknown - Referrals Referrals: Ilana Mitchell [Primary Care Provider] - - Patient Instructions - Post Discharge Activity Forms/Work/School Notes: My Personal Safety Plan
[2017-08-04 00:24] LABS: BASOPHIL 0.6 % (0-2.0); EOSINOPHIL 1.6 % (0-4.5); MCH 27.4 pg (25.7-33.7); MCHC 32.7 g/dl (32.0-35.9); MEAN CELL VOLUME 83.8 fl (80-96); MEAN PLT VOLUME 8.5 fl (7.5-11.1); NEUTROPHILS 52.9 % (42.8-82.8); PLATELET COUNT 323 K/MM3 (134-434); RDW 14.5 % (11.9-15.9); WHITE BLOOD COUNT 7.7 K/mm3 (4.0-10.0)
[2017-08-04 00:56] LABS: ALBUMIN 3.5 g/dl (3.4-5.0); ANION GAP 8 (8-16); BILIRUBIN,TOTAL 0.2 mg/dL (0.2-1.0); CALCIUM 8.8 mg/dL (8.5-10.1); CO2 29 mmol/L (21-32); CREATININE 0.9 mg/dL (0.7-1.3); GLUCOSE,RANDOM 92 mg/dL (74-106); SGOT/AST 12 U/L (15-37); SGPT/ALT 30 U/L (12-78); TOT PROT 6.6 g/dl (6.4-8.2)
[2017-08-04 00:57] LABS: ALK PHOS 49 U/L (45-117)
[2017-08-04 01:23] LABS: SALICYLATE < 4.0 mg/dl (0.0-30.0)
--- NOTE | 2017-08-04 09:54 | CON.PSY ---
Psychiatry Consult Chief Complaint: I am very very depressed and suicidal. Symptoms: reports: Depressed Mood, Suicidality, Impulsivity - Previous Psychiatric Treatment Outpatient: Less than 6 mos ago Inpatient: 2 or more prior admissions - Previous Substance Abuse Treatment Outpatient: More than 6 mos ago - Reason for Previous Treatment Reason for Previous Treatment: Major Depression, Psychotic Episode - Allergies Allergies: Allergies Allergy/AdvReac Type Severity Reaction Status Date / Time codeine AdvReac Verified 08/03/17 23:27 - Current Living Status Usual Living Arrangement: With Significant Other - Current Mental Status Evaluation Appearance: Well Groomed Attitude: Suspicious - Affect Affect: Constrictive Appropriateness: Not Appropriate - Mood Mood: Irritable - Speech/Language Expressive: Coherent Receptive: Age Appropriate Comprehension of Spoken Words - Psychomotor Activity Psychomotor Activity: Hyperactive - Thought Process Thought Process: Circumstantial - Thought Content Hallucinations: Absent Delusions: Present Type: Persectory - Self Perception Self Perception: No Impairment - Cognition Attention: Alert Orientation: Time Memory, Immediate Recall: Intact Memory, Short Term: 2/3 Memory, Remote with Promptin/3 - Concentration Serial Sevens Intact: No Simple Calculations Intact: No - Abstraction Proverb Interpretation: Drummonds Judgement: Moderately Impaired - Insight Insight: Impaired - Impulse Control Impulse Control: Moderately Impaired - Suicidal Ideation Suicidal Ideation: Yes (Refused to tell me) - Homicidal Ideation Homicidal Ideation: No Assessment/Plan 1) Needs In Patient Hospitalization for Psych Stabilization.
--- NOTE | 2017-08-04 10:11 | PDOC ---
*Physical Exam - Vital Signs Last Vital Signs Temp Pulse Resp BP Pulse Ox 98.2 F 68 18 100/57 99 08/03/17 22:15 08/04/17 06:36 08/04/17 06:36 08/04/17 06:36 08/04/17 06:36 ED Treatment Course - LABORATORY CBC & Chemistry Diagram: 08/04/17 00:13 08/04/17 00:13 - ADDITIONAL ORDERS Additional order review: Laboratory Results 08/04/17 08/04/17 00:13 00:13 Sodium 140 Potassium 4.2 Chloride 103 Carbon Dioxide 29 Anion Gap 8 BUN 13 D Creatinine 0.9 Creat Clearance w eGFR > 60 Random Glucose 92 Calcium 8.8 Total Bilirubin 0.2 D AST 12 L ALT 30 D Alkaline Phosphatase 49 Total Protein 6.6 Albumin 3.5 Salicylates < 4.0 Acetaminophen < 11 08/04/17 00:13 RBC 4.69 MCV 83.8 MCHC 32.7 RDW 14.5 MPV 8.5 Neutrophils % 52.9 D Lymphocytes % 36.6 D Monocytes % 8.3 Eosinophils % 1.6 D Basophils % 0.6 Medical Decision Making - Medical Decision Making 08/04/17 10:[address] Pappas. Patient needs psychiatric admission. Patient is medically cleared for psychiatric admission to [facility]. 08/04/17 11:33 Patient eloped from the ED despite multiple attempts at re-direction by myself and other ED staff. Security was at the bedside and understood that the patient was not to leave the ED. Patient pushed past me and exited the ED through the ambulance bay doors, followed by security. Condition 10 was paged overhead, Cristian BRYAN was called. Cristian BRYAN is persuing patient now. Will restrain and sedate patient if he returns to the ED. 08/04/17 11:40 Security has spoken to Cristian BRYAN. Patient is cleared to be transported directly to [facility] if police are able to apprehend him. Pt is cleared to go directly to [facility]. *DC/Admit/Observation/Transfer - Referrals Referrals: Ilana Mitchell [Primary Care Provider] - - Patient Instructions - Post Discharge Activity Forms/Work/School Notes: My Personal Safety Plan
--- NOTE | 2017-08-04 10:57 | EKG ---
Test Reason : Blood Pressure : / mmHG Vent. Rate : 059 BPM Atrial Rate : 059 BPM P-R Int : 114 ms QRS Dur : 096 ms QT Int : 392 ms P-R-T Axes : 034 039 035 degrees QTc Int : 388 ms SINUS BRADYCARDIA OTHERWISE NORMAL ECG WHEN COMPARED WITH ECG OF 10-JUN-2017 23:25, NO SIGNIFICANT CHANGE WAS FOUND Confirmed by DARLIN GUTIERREZ MD ([id number]) on 08/04/2017 10:56:56 AM Referred By: Confirmed By:DARLIN GUTIERREZ MD
[2017-08-04] MEDS ORDERED: HALOPERIDOL LACTATE 5 MG/ML IM ONE (11:17)
[2017-08-04] MEDS ORDERED: HALOPERIDOL LACTATE 5 MG/ML ONE (11:18)
[2017-08-04] MEDS ORDERED: LORazepam 2 MG/ML SDV VIAL ONE (11:19)
[2017-08-04 11:24] VITALS: BP 130/69; PULSE 78
== END 2017-08-04 11:05 | disposition left against medical advice (07) ==
LOC: JER 21:52
DX: F32.9 Major depressive disorder, single episode, unspecified (principal); F29 Unspecified psychosis not due to a substance or known physiological condition; F20.9 Schizophrenia, unspecified; F31.9 Bipolar disorder, unspecified
CPT/HCPCS: 36415; 80053; 80307; 85025; 93005; 93010; 99283-25

== ENCOUNTER 2017-09-25 16:06 | Inpatient (IN) | payer OTHER ==
[2017-09-25] MEDS ORDERED: HALOPERIDOL LACTATE 5 MG/ML IM ONE (16:36)
[2017-09-25] MEDS ORDERED: HALOPERIDOL LACTATE 5 MG/ML ONE (16:41)
[2017-09-25] MEDS ORDERED: LORazepam 2 MG/ML SDV VIAL ONE (16:41)
--- NOTE | 2017-09-25 16:51 | PDOC ---
History of Present Illness - General Chief Complaint: Psychiatric Stated Complaint: HOMICIDAL/SUICIDAL History Source: Patient Exam Limitations: No Limitations - History of Present Illness Initial Comments: 09/25/17 16:45 37 yo male with h/o substance abuse here today explaining that he is suicidal and homicidal. pt states he would like to only speak to a psychiatrist. Denies taking any overdose of medication or other attempts to hurt others today. pt is loud and verbally aggressive threatening staff around him. refusing to provide additional history. Past History - Past Medical History Allergies/Adverse Reactions: Allergies Allergy/AdvReac Type Severity Reaction Status Date / Time codeine AdvReac Verified 09/25/17 16:23 Home Medications: Ambulatory Orders Cyclobenzaprine HCl [Flexeril -] 10 mg PO BID PRN #15 tablet 07/15/17 Ibuprofen [Motrin -] 600 mg PO TID #15 tablet 07/15/17 Cyclobenzaprine HCl [Flexeril -] 10 mg PO TID PRN #21 tablet 07/24/17 Ketorolac Tromethamine [Toradol] 10 mg PO Q6H PRN #16 tablet 07/24/17 Anemia: No Asthma: No Cancer: No Cardiac Disorders: No CVA: No COPD: No CHF: No Dementia: No Diabetes: No GI Disorders: No Disorders: No HTN: No Hypercholesterolemia: No Kidney Stones: No Liver Disease: No Psychiatric Problems: Yes (h/o anxiety/depression ) Seizures: No Thyroid Disease: No - Surgical History Abdominal Surgery: No Appendectomy: No Cardiac Surgery: No Cholecystectomy: No Lung Surgery: No Neurologic Surgery: No Orthopedic Surgery: Yes (repair of achillis tendon left at age of 16 years) - Reproductive History Testicular Surgery: No - Immunization History Immunization Up to Date: Yes - Suicide/Smoking/Psychosocial Hx Smoking History: Current some day smoker Have you smoked in the past 12 months: Yes Number of Cigarettes Smoked Daily: 2 Information on smoking cessation initiated: No 'Breaking Loose' booklet given: 07/31/17 Hx Alcohol Use: No Drug/Substance Use Hx: No Substance Use Type: None Hx Substance Use Treatment: Yes ([facility]) Review of Systems - Review of Systems Able to Perform ROS?: Yes Comments:: 09/25/17 16:49 pt is too agitated to cooperate with ROS Constitutional: No: Chills *Physical Exam - Vital Signs Last Vital Signs Temp Pulse Resp BP Pulse Ox 98.9 F 119 H 20 106/72 100 09/25/17 16:23 09/25/17 16:23 09/25/17 16:23 09/25/17 16:23 09/25/17 16:23 - Physical Exam General Appearance: Yes: Nourished Musculoskeletal: positive: Normal Inspection Extremity: positive: Normal Inspection Neurologic: positive: Fully Oriented, Alert, Normal Mood/Affect, Other (psych eval. pt is loud, aggressive, threatening . paranoid. speech is loud. positive HI and SI) ED Treatment Course - LABORATORY CBC & Chemistry Diagram: 09/25/17 20:03 09/25/17 20:03 Medical Decision Making - Medical Decision Making 09/25/17 16:51 37 yo male with h/o polysubstance abuse here today with c/o suicidal and homicidal ideation. plan psychiatry consult. medication to control agitation. security at the bedside. labs. will juan require a 2 PC 09/25/17 16:57 pt refusing to cooperate with measures of safety. persistantly threatening to injure hospital staff. medication offered. pt refusing to cooperate with exam and further questioning. 09/25/17 17:40 pt refusing blood work. UA U tox sent. 09/25/17 18:38 pt agreeable to po meds only refusing Haldol. given Ativan and Benadryl. now calmer. case d/w dr. Chase, will evaluate pt in ED. d/w [facility] for case review. 09/25/17 22:07 multiple attempts to contact [facility] for possible psychiatry admission, unable to speak to psychiatrist. attempt to call [facility], no availability for transfer at this point. will admit pt here pending other psychiatric bed opening. *DC/Admit/Observation/Transfer Diagnosis at time of Disposition: Psychosis - Discharge Dispostion Admit: Yes - Referrals - Patient Instructions - Post Discharge Activity
[2017-09-25] MEDS ORDERED: LORazepam 1 MG TABLET PO ONE ×2 (17:31→20:24)
[2017-09-25] MEDS ORDERED: diphenhydrAMINE HCL 50 MG CAPSULE PO ONE (17:32)
[2017-09-25] MEDS: HALOPERIDOL 5 MG TABLET (FP) PO ONE ×2 (17:45→17:50)
[2017-09-25 18:36] LABS: URINE MARIJUANA THC POSITIVE ng/ml (CUTOFF=50)
[2017-09-25 20:09] LABS: BASOPHIL 0.9 % (0-2.0); EOSINOPHIL 0.5 % (0-4.5); MCHC 33.1 g/dl (32.0-35.9); MEAN CELL VOLUME 81.7 fl (80-96); MEAN PLT VOLUME 8.3 fl (7.5-11.1); NEUTROPHILS 71.9 % (42.8-82.8); PLATELET COUNT 370 K/MM3 (134-434); RDW 14.9 % (11.9-15.9); WHITE BLOOD COUNT 14.4 K/mm3 (4.0-10.0)
--- NOTE | 2017-09-25 20:15 | CON.PSY ---
Psychiatry Consult Chief Complaint: I feel homicidal and suicidal and psychotic. My life is not going well. Symptoms: reports: Worthlessness/Guilt, Suicidality, Self destructive thoughts, Inability to Control Temper, Aggressivity, Delusions - Previous Psychiatric Treatment Outpatient: Less than 6 mos ago Inpatient: 2 or more prior admissions - Previous Substance Abuse Treatment Outpatient: None - Reason for Previous Treatment Reason for Previous Treatment: Biploar Illness, Psychotic Episode - Allergies Allergies: Allergies Allergy/AdvReac Type Severity Reaction Status Date / Time codeine AdvReac Verified 09/25/17 16:23 - Current Living Status Usual Living Arrangement: Alone - Current Mental Status Evaluation Appearance: Disheveled Attitude: Belligerent - Affect Affect: Constrictive Appropriateness: Not Appropriate - Mood Mood: Angry - Speech/Language Expressive: Coherent - Psychomotor Activity Psychomotor Activity: Agitated - Thought Process Thought Process: Loosening of Associations - Thought Content Hallucinations: Absent Delusions: Present Type: Persectory - Self Perception Self Perception: No Impairment - Cognition Attention: Alert Orientation: Time Memory, Immediate Recall: Impaired Memory, Short Term: 2/3 - Abstraction Proverb Interpretation: Impaired - Insight Insight: Impaired - Impulse Control Impulse Control: Moderately Impaired - Suicidal Ideation Suicidal Ideation: Yes - Homicidal Ideation Homicidal Ideation: Yes Assessment/Plan 1) Patient is suicidal and Homicidal at this time. 2) will transferr on a 2PC to [facility].
[2017-09-25] MEDS ORDERED: LORazepam 0.5 MG TABLET ONE (20:30)
[2017-09-25 20:35] LABS: ALK PHOS 61 U/L (45-117); ANION GAP 7 (8-16); BILIRUBIN,TOTAL 0.4 mg/dL (0.2-1.0); CALCIUM 8.8 mg/dL (8.5-10.1); CO2 32 mmol/L (21-32); GLUCOSE,RANDOM 80 mg/dL (74-106); SGOT/AST 27 U/L (15-37); SGPT/ALT 51 U/L (12-78); TOT PROT 7.4 g/dl (6.4-8.2)
[2017-09-25] MEDS ORDERED: LORazepam 2 MG/ML SDV VIAL IM PRN (23:52)
--- NOTE | 2017-09-25 23:52 | HP ---
CHIEF COMPLAINT: Presented to ED stating suicidal and homicidal ideations PCP: HISTORY OF PRESENT ILLNESS: 37 year old male with history of bipolar disorder and substance abuse presented to the ED stating suicidal and homicidal ideation. Was evaluated by psychiatry and recommendations were made to transfer to psychiatric facility. Despite multiple attempts by ED physician they were unable to get a bed in the hospital with psychiatric [facility]ey and we were asked to hospitalize this patient . Patient admits using PCP. Continues to exhibit irrational behavior and is agitated . Refusing Haldol . PAST MEDICAL HISTORY: Bipolar Disorder PAST SURGICAL HISTORY: unknown Social History: recent use of PCP Allergies codeine Adverse Reaction (Verified 09/25/17 16:23) HOME MEDICATIONS: Home Medications Medication Instructions Recorded Cyclobenzaprine HCl [Flexeril -] 10 mg PO BID PRN #15 tablet 07/15/17 Ibuprofen [Motrin -] 600 mg PO TID #15 tablet 07/15/17 Cyclobenzaprine HCl [Flexeril -] 10 mg PO TID PRN #21 tablet 07/24/17 Ketorolac Tromethamine [Toradol] 10 mg PO Q6H PRN #16 tablet 07/24/17 PHYSICAL EXAMINATION Vital Signs - 24 hr 09/25/17 09/25/17 16:23 18:28 Temperature 98.9 F Pulse Rate 119 H Pulse Rate [ 88 Apical] Respiratory 20 18 Rate Blood Pressure 106/72 Blood Pressure 124/73 [Left Arm] O2 Sat by Pulse 100 98 Oximetry (%) Unable to perform physical exam due to agitation and homicidal ideation. Patient is observed pacing in ER room, no pain. Laboratory Results - last 24 hr 09/25/17 09/25/17 09/25/17 18:18 20:03 20:03 WBC 14.4 H D RBC 4.86 Hgb 13.1 Hct 39.7 MCV 81.7 MCH 27.0 MCHC 33.1 RDW 14.9 Plt Count 370 MPV 8.3 Neutrophils % 71.9 D Lymphocytes % 17.5 D Monocytes % 9.2 Eosinophils % 0.5 Basophils % 0.9 Sodium 137 Potassium 4.6 Chloride 98 Carbon Dioxide 32 Anion Gap 7 L BUN 23 H D Creatinine 1.0 Creat Clearance w eGFR > 60 Random Glucose 80 Calcium 8.8 Total Bilirubin 0.4 D AST 27 D ALT 51 D Alkaline Phosphatase 61 D Total Protein 7.4 Albumin 4.0 Opiates Screen Negative Methadone Screen Negative Barbiturate Screen Negative Phencyclidine Screen Positive Ur Amphetamines Screen Negative MDMA (Ecstasy) Screen Negative Benzodiazepines Screen Negative Cocaine Screen Negative U Marijuana (THC) Screen Positive ASSESSMENT/PLAN: Patient lacks capacity to make medical decisions at this time . Will continue direct observation Ativan PRN for severe agitation Suicidal precautions Transfer when bed is available Visit type - Emergency Visit Emergency Visit: Yes ED Registration Date: 09/25/17 Care time: The patient presented to the Emergency Department on the above date and was hospitalized for further evaluation of their emergent condition. - New Patient This patient is new to me today: Yes Date on this admission: 09/25/17 - Critical Care Critical Care patient: No
[2017-09-26 01:53] VITALS: BMI 31.1
[2017-09-26] MEDS ORDERED: HALOPERIDOL LACTATE 5 MG/ML IM ONE (08:45)
--- NOTE | 2017-09-26 08:50 | PN ---
Physical Exam: SUBJECTIVE: Patient seen and examined at the bedside. He was calm and cooperative and allowed a limited exam. When asked how he was he responded "I am suicidal and homicidal". Denies any pain, states he is calm and does not want to take any medications at this time. OBJECTIVE: On a 1:1 for safety, awaiting bed to [facility] Patient is refusing to take anything to help stablizie his mood, states he feels calm. Allowing staff to examine him, even if its a limited exam Answering questions appropriately at this time Will order Haldol 5mg IM and Ativan 2mg IV in case patient becomes threatening, or becomes agitated. Haldol and Ativan can be mixed into same syringe. Vital Signs Period Temp Pulse Resp BP Sys/Reyes Pulse Ox Last 24 Hr 97.3 F-98.9 F 88-119 18-20 106-129/52-73 98-100 GENERAL: The patient is awake, alert, and fully oriented, no agitation on exam. cooperative HEAD: Normal with no signs of trauma. EYES: PERRL, extraocular movements intact, sclera anicteric, conjunctiva clear. No ptosis. ENT: Ears normal, nares patent, oropharynx clear without exudates, moist mucous membranes. NECK: Trachea midline, full range of motion, supple. LUNGS: Breath sounds equal, clear to auscultation bilaterally, no wheezes, no crackles, no accessory muscle use. ABDOMEN: Soft, nontender, nondistended, normoactive bowel sounds, no guarding, no rebound, no hepatosplenomegaly, no masses. EXTREMITIES: no edema. NEUROLOGICAL: Normal speech, gait not observed. PSYCH: Suspicious, currently not agitated, on a 1:1 for safety SKIN: Multiple upper back and neck tattoos, limited exam, viewed his back, and legs, did not allow further assessment. Laboratory Results - last 24 hr 09/25/17 09/25/17 09/25/17 18:18 20:03 20:03 WBC 14.4 H D RBC 4.86 Hgb 13.1 Hct 39.7 MCV 81.7 MCH 27.0 MCHC 33.1 RDW 14.9 Plt Count 370 MPV 8.3 Neutrophils % 71.9 D Lymphocytes % 17.5 D Monocytes % 9.2 Eosinophils % 0.5 Basophils % 0.9 Sodium 137 Potassium 4.6 Chloride 98 Carbon Dioxide 32 Anion Gap 7 L BUN 23 H D Creatinine 1.0 Creat Clearance w eGFR > 60 Random Glucose 80 Calcium 8.8 Total Bilirubin 0.4 D AST 27 D ALT 51 D Alkaline Phosphatase 61 D Total Protein 7.4 Albumin 4.0 Opiates Screen Negative Methadone Screen Negative Barbiturate Screen Negative Phencyclidine Screen Positive Ur Amphetamines Screen Negative MDMA (Ecstasy) Screen Negative Benzodiazepines Screen Negative Cocaine Screen Negative U Marijuana (THC) Screen Positive Active Medications Generic Name Dose Route Start Last Admin Trade Name Freq PRN Reason Stop Dose Admin Lorazepam 1 mg 09/25/17 23:52 Ativan Injection - IM Q6H PRN ANXIETY ASSESSMENT/PLAN: Patient is a 37 year old male with a history of substance abuse who presents to the ED stating that he is both suicidal and homicidal. Patient is awaiting bed transfer to inpatient psych @ [facility]. On exam, patient was laying in the bed, in no acute distress. Was calm and cooperative. Has a 1 :1 for safety. 2PC paperwork in chart. Psyche Suicide/Homicide Ideation, acute Monitor 1:1 Seen by psyche physician who deemed needs transfer to inpatient psyche: 2 PC in chart Please attempt to verbally de-escalate patient if he becomes aggressive and agitated, however, if unable to verbally deescalate, Haldol 5mg/Ativan 2mg IM to be given together in one syringe (compatible) Hematology: Mild leukocytosis, acute Unknown etiology, vitals stable, non toxic appearing No evidence of infection If become febrile, will order blood cultures At this time, will monitor F.E.N. Fluids: PO intake adequate Electrolytes: reviewed, on yesterday's labs Nutrition: regular diet. Prophylaxis: DVT: young ambulatory patient, low risk GI: deferred for now Disposition: Awaiting inpatient bed transfer. full code. Visit type - Emergency Visit Emergency Visit: Yes ED Registration Date: 09/25/17 Care time: The patient presented to the Emergency Department on the above date and was hospitalized for further evaluation of their emergent condition. - New Patient This patient is new to me today: Yes Date on this admission: 09/26/17 - Critical Care Critical Care patient: No - Discharge Referral Referred to [facility] Med P.C.: No
[2017-09-26] MEDS ORDERED: CLOTRIMAZOLE 1% CREAM 15 GM TUBE TP SCH (10:00)
[2017-09-26] MEDS ORDERED: KETOROLAC TROMETHAMINE 10 MG TABLET PO PRN (10:21)
[2017-09-26] MEDS ORDERED: oxyCODONE HCL 5 MG TABLET PO ONE (11:15)
--- NOTE | 2017-09-26 12:56 | DS ---
Physical Exam: SUBJECTIVE: Patient seen and examined at the bedside. He was calm and cooperative and allowed a limited exam. When asked how he was he responded "I am suicidal and homicidal". Denies any pain, states he is calm and does not want to take any medications at this time. OBJECTIVE: On a 1:1 for safety, awaiting bed to [facility] Patient is refusing to take anything to help stablizie his mood, states he feels calm. Allowing staff to examine him, even if its a limited exam Answering questions appropriately at this time Will order Haldol 5mg IM and Ativan 2mg IV in case patient becomes threatening, or becomes agitated. Haldol and Ativan can be mixed into same syringe. Vital Signs Period Temp Pulse Resp BP Sys/Reyes Pulse Ox Last 24 Hr 97.3 F-98.9 F 88-119 18-20 106-129/52-73 98-100 PHYSICAL EXAM GENERAL: The patient is awake, alert, and fully oriented, no agitation on exam. cooperative HEAD: Normal with no signs of trauma. EYES: PERRL, extraocular movements intact, sclera anicteric, conjunctiva clear. No ptosis. ENT: Ears normal, nares patent, oropharynx clear without exudates, moist mucous membranes. NECK: Trachea midline, full range of motion, supple. LUNGS: Breath sounds equal, clear to auscultation bilaterally, no wheezes, no crackles, no accessory muscle use. ABDOMEN: Soft, nontender, nondistended, normoactive bowel sounds, no guarding, no rebound, no hepatosplenomegaly, no masses. EXTREMITIES: no edema. NEUROLOGICAL: Normal speech, gait not observed. PSYCH: Suspicious, currently not agitated, on a 1:1 for safety SKIN: Multiple upper back and neck tattoos, limited exam, viewed his back, and legs, did not allow further assessment. LABS Laboratory Results - last 24 hr 09/25/17 09/25/17 09/25/17 18:18 20:03 20:03 WBC 14.4 H D RBC 4.86 Hgb 13.1 Hct 39.7 MCV 81.7 MCH 27.0 MCHC 33.1 RDW 14.9 Plt Count 370 MPV 8.3 Neutrophils % 71.9 D Lymphocytes % 17.5 D Monocytes % 9.2 Eosinophils % 0.5 Basophils % 0.9 Sodium 137 Potassium 4.6 Chloride 98 Carbon Dioxide 32 Anion Gap 7 L BUN 23 H D Creatinine 1.0 Creat Clearance w eGFR > 60 Random Glucose 80 Calcium 8.8 Total Bilirubin 0.4 D AST 27 D ALT 51 D Alkaline Phosphatase 61 D Total Protein 7.4 Albumin 4.0 Opiates Screen Negative Methadone Screen Negative Barbiturate Screen Negative Phencyclidine Screen Positive Ur Amphetamines Screen Negative MDMA (Ecstasy) Screen Negative Benzodiazepines Screen Negative Cocaine Screen Negative U Marijuana (THC) Screen Positive HOSPITAL COURSE: Date of Admission:09/25/17 Date of Discharge: 09/26/17 ASSESSMENT/PLAN: Patient is a 37 year old male with a history of substance abuse who presents to the ED stating that he is both suicidal and homicidal. Patient is awaiting bed transfer to inpatient psych @ [facility]. On exam, patient was laying in the bed, in no acute distress. Was calm and cooperative. Has a 1 :1 for safety. 2PC paperwork in chart. Psyche Suicide/Homicide Ideation, acute Monitor 1:1 Seen by psyche physician who deemed needs transfer to inpatient psyche: 2 PC in chart Please attempt to verbally de-escalate patient if he becomes aggressive and agitated, however, if unable to verbally deescalate, Haldol 5mg/Ativan 2mg IM to be given together in one syringe (compatible) Hematology: Mild leukocytosis, acute Unknown etiology, vitals stable, non toxic appearing No evidence of infection If become febrile, will order blood cultures At this time, will monitor F.E.N. Fluids: PO intake adequate Electrolytes: reviewed, on yesterday's labs Nutrition: regular diet. Prophylaxis: DVT: young ambulatory patient, low risk GI: deferred for now Disposition: transfer to [facility] full code. Minutes to complete discharge: 60 Discharge Summary Reason For Visit: PSYCHOSIS Current Active Problems Psychosis (Acute) Condition: Guarded - Instructions Diet, Activity, Other Instructions: Transfer to [facility] inpatient psyche. Disposition: TRANSFER ACUTE CARE/OTHER HOSP - Home Medications Comprehensive Discharge Medication List: Ambulatory Orders Cyclobenzaprine HCl [Flexeril -] 10 mg PO BID PRN #15 tablet 07/15/17 Ibuprofen [Motrin -] 600 mg PO TID #15 tablet 07/15/17 Cyclobenzaprine HCl [Flexeril -] 10 mg PO TID PRN #21 tablet 07/24/17 Ketorolac Tromethamine [Toradol] 10 mg PO Q6H PRN #16 tablet 07/24/17 This patient is new to me today: Yes Date on this admission: 09/26/17 Emergency Visit: Yes ED Registration Date: 09/25/17 Care time: The patient presented to the Emergency Department on the above date and was hospitalized for further evaluation of their emergent condition. Critical Care patient: No - Discharge Referral Referred to [facility] Med P.C.: No
[2017-09-26] MEDS ORDERED: IBUPROFEN 600 MG TABLET (FP) PO SCH (14:00)
[2017-09-26 14:23] VITALS: BP 121/80; PULSE 90; TEMP 98.3
--- NOTE | 2017-09-29 23:18 | EKG ---
Test Reason : Blood Pressure : / mmHG Vent. Rate : 094 BPM Atrial Rate : 094 BPM P-R Int : 128 ms QRS Dur : 090 ms QT Int : 344 ms P-R-T Axes : 069 083 042 degrees QTc Int : 430 ms NORMAL SINUS RHYTHM POSSIBLE LEFT ATRIAL ENLARGEMENT BORDERLINE ECG WHEN COMPARED WITH ECG OF 04-AUG-2017 00:27, VENT. RATE HAS INCREASED BY 35 BPM Confirmed by DARLIN GUTIERREZ MD ([id number]) on 09/29/2017 11:18:10 PM Referred By: Confirmed By:DARLIN GUTIERREZ MD
== END 2017-09-26 14:30 | disposition short-term general hospital (02) | DRG 756 ==
LOC: JER 16:06 → EDBD 16:06 → JERBED 22:10 → J4S 09-26 00:27
PROVIDERS: ADMIT Internal Medicine; ATTEND Nurse Practitioner Family
DX: R45.851 Suicidal ideations (principal); F23 Brief psychotic disorder; D72.829 Elevated white blood cell count, unspecified; R45.850 Homicidal ideations; F17.210 Nicotine dependence, cigarettes, uncomplicated; F31.89 Other bipolar disorder; F19.20 Other psychoactive substance dependence, uncomplicated
CPT/HCPCS: 36415; 80053; 80307; 85025; 93005; 93010; 99284-25

== ENCOUNTER 2017-10-04 00:07 | Emergency (ER) | payer OTHER ==
[2017-10-04 00:12] VITALS: BP 139/89; PULSE 97; BMI 33.4
--- NOTE | 2017-10-04 00:45 | PDOC ---
History of Present Illness - General Chief Complaint: Back Pain Stated Complaint: BACK PAIN Time Seen by Provider: 10/04/17 00:33 History Source: Patient Exam Limitations: No Limitations - History of Present Illness Initial Comments: 10/04/17 00:50 37-year-old male with no medical history presents to the emergency department complaining of left-sided lumbar pain. Pain is described as 4/10 dull nonradiating intermittent discomfort. Patient states he was pulling a couch earlier this afternoon and felt and acute strain to the left lower lumbar region. Patient denies falling, head injuries, neck pains, extremity numbness or tingling sensation, abdominal pains, flank pains, urinary symptoms, bladder or bowel dysfunction Occurred: reports: this afternoon Pain Location: reports: back Method of Injury: Yes: other (moving a couoch) Past History - Past Medical History Allergies/Adverse Reactions: Allergies Allergy/AdvReac Type Severity Reaction Status Date / Time codeine AdvReac Verified 10/04/17 00:11 Home Medications: Ambulatory Orders Cyclobenzaprine HCl [Flexeril -] 10 mg PO BID PRN #15 tablet 07/15/17 Ibuprofen [Motrin -] 600 mg PO TID #15 tablet 07/15/17 Ketorolac Tromethamine [Toradol -] 10 mg PO Q6H PRN #16 tablet 07/24/17 Anemia: No Asthma: No Cancer: No Cardiac Disorders: No CVA: No COPD: No CHF: No DVT: No Dementia: No Diabetes: No GI Disorders: No Disorders: No HTN: No Hypercholesterolemia: No Kidney Stones: No Liver Disease: No Psychiatric Problems: Yes (h/o anxiety/depression ) Seizures: No Thyroid Disease: No - Surgical History Abdominal Surgery: No Appendectomy: No Cardiac Surgery: No Cholecystectomy: No Lung Surgery: No Neurologic Surgery: No Orthopedic Surgery: Yes (repair of achillis tendon left at age of 16 years) - Reproductive History Testicular Surgery: No - Immunization History Immunization Up to Date: Yes - Suicide/Smoking/Psychosocial Hx Smoking History: Never smoked Have you smoked in the past 12 months: No Number of Cigarettes Smoked Daily: 20 'Breaking Loose' booklet given: 07/31/17 Hx Alcohol Use: No Drug/Substance Use Hx: Yes Substance Use Type: Marijuana, Opiates Hx Substance Use Treatment: Yes ([facility]) Trauma Specific PMHX - Complaint Specific PMHX Arthritis: No Review of Systems - Review of Systems Able to Perform ROS?: Yes Comments:: 10/04/17 00:46 CONSTITUTIONAL: Absent: fever, chills, diaphoresis, generalized weakness, malaise, loss of appetite HEENT: Absent: rhinorrhea, nasal congestion, throat pain, throat swelling, difficulty swallowing, mouth swelling, ear pain, eye pain, visual Changes CARDIOVASCULAR: Absent: chest pain, loss of consciousness, palpitations, irregular heart rate, peripheral edema RESPIRATORY: Absent: cough, shortness of breath, dyspnea with exertion, orthopnea, wheezing, stridor, hemoptysis GASTROINTESTINAL: Absent: abdominal pain, abdominal distension, nausea, vomiting, diarrhea, constipation, melena, hematochezia GENITOURINARY: Absent: dysuria, frequency, urgency, hesitancy, hematuria, flank pain, genital pain MUSCULOSKELETAL: +left sided paravertebral lumbar pain Absent: myalgia, arthralgia, joint swelling SKIN: Absent: rash, itching, pallor HEMATOLOGIC/IMMUNOLOGIC: Absent: easy bleeding, easy bruising, lymphadenopathy, frequent infections Is the patient limited Norwegian proficient: No *Physical Exam - Vital Signs Last Vital Signs Temp Pulse Resp BP Pulse Ox 97 H 18 139/89 99 10/04/17 00:08 10/04/17 00:08 10/04/17 00:08 10/04/17 00:08 - Physical Exam Comments: 10/04/17 00:46 GENERAL: Well developed, well nourished. Awake and alert. No acute distress. HEENT: Normocephalic, atraumatic. PERRLA, EOMI. No conjunctival pallor. Sclera are non- icteric. Moist mucous membranes. Oropharynx is clear. NECK: Supple. Full ROM. No JVD. Carotid pulses 2+ and symmetric, without bruits. No thyromegaly. No lymphadenopathy. CARDIOVASCULAR: Regular rate and rhythm. No murmurs, rubs, or gallops. Distal pulses are 2+ and symmetric. PULMONARY: No evidence of respiratory distress. Lungs clear to auscultation bilaterally. No wheezing, rales or rhonchi. ABDOMINAL: Soft. Non-tender. Non-distended. No rebound or guarding. No organomegaly. Normoactive bowel sounds. MUSCULOSKELETAL +left side paravertebral pain Neg SLR Normal range of motion at all joints. No bony deformities or tenderness. No CVA tenderness. EXTREMITIES: No cyanosis. No clubbing. No edema. No calf tenderness. SKIN: Warm and dry. Normal capillary refill. No rashes. No jaundice. *DC/Admit/Observation/Transfer Diagnosis at time of Disposition: Lumbar spine strain Qualifiers: Encounter type: initial encounter Qualified Code(s): S39.012A - Strain of muscle, fascia and tendon of lower back, initial encounter - Discharge Dispostion Disposition: HOME Condition at time of disposition: Stable Admit: No - Referrals Referrals: Justin Yu MD [Staff Physician] - - Patient Instructions Printed Discharge Instructions: DI for Back Strain or Sprain Additional Instructions: Ice; 20 mins on alternating with 20 mins off for 48 hours while awake. Rest Elevate Follow up with your orthopedic surgeon or the one listed on the discharge form. Return to the ER for severe/persistent/worsening symptoms, extremity numbness/ tingling sensation. - Post Discharge Activity
[2017-10-04] MEDS ORDERED: IBUPROFEN 400 MG TABLET (FP) PO ONE ×2 (00:51→00:58)
== END 2017-10-04 01:00 | disposition home or self-care (01) ==
LOC: JER 00:07
DX: S39.012A Strain of muscle, fascia and tendon of lower back, initial encounter (principal); X50.0XXA Overexertion from strenuous movement or load, initial encounter; X50.9XXA Other and unspecified overexertion or strenuous movements or postures, initial encounter; Y93.89 Activity, other specified; Y92.89 Other specified places as the place of occurrence of the external cause; Y99.8 Other external cause status; F41.8 Other specified anxiety disorders
CPT/HCPCS: 99283-25

== ENCOUNTER 2018-03-21 03:10 | Emergency (ER) | payer OTHER ==
[2018-03-21 04:36] VITALS: BP 135/90; PULSE 129; TEMP 98.2; BMI 33.5
[2018-03-21] MEDS ORDERED: ACETAMINOPHEN 325 MG TABLET (FP) PO ONE (04:38)
[2018-03-21] MEDS ORDERED: MECLIZINE HCL 25 MG TABLET (FP) PO ONE (04:38)
--- NOTE | 2018-03-21 04:45 | PDOC ---
History of Present Illness - General Stated Complaint: LIGHTHEADED, Time Seen by Provider: 03/21/18 03:54 History Source: Patient, Old Records Exam Limitations: No Limitations - History of Present Illness Initial Comments: 03/21/18 04:40 This is a 37-year-old male who denies medical history presents emergency Department with intermittent dizziness which he describes as a room spinning feeling. He states he occasionally gets dizzy when he changes positions. Patient states this been going on and off for the past 3 hours and currently any dizziness. He denies headaches, fevers, chills, blurry vision, nausea, vomiting. Past History - Past Medical History Allergies/Adverse Reactions: Allergies Allergy/AdvReac Type Severity Reaction Status Date / Time codeine AdvReac Verified 10/04/17 00:11 Home Medications: Ambulatory Orders Cyclobenzaprine HCl [Flexeril -] 10 mg PO BID PRN #15 tablet 07/15/17 Ibuprofen [Motrin -] 600 mg PO TID #15 tablet 07/15/17 Ketorolac Tromethamine [Toradol -] 10 mg PO Q6H PRN #16 tablet 07/24/17 Anemia: No Asthma: No Cancer: No Cardiac Disorders: No CVA: No COPD: No CHF: No DVT: No Dementia: No Diabetes: No GI Disorders: No Disorders: No HTN: No Hypercholesterolemia: No Kidney Stones: No Liver Disease: No Psychiatric Problems: Yes (h/o anxiety/depression ) Seizures: No Thyroid Disease: No - Surgical History Abdominal Surgery: No Appendectomy: No Cardiac Surgery: No Cholecystectomy: No Lung Surgery: No Neurologic Surgery: No Orthopedic Surgery: Yes (repair of achillis tendon left at age of 16 years) - Reproductive History Testicular Surgery: No - Immunization History Immunization Up to Date: Yes - Suicide/Smoking/Psychosocial Hx Smoking History: Current every day smoker Have you smoked in the past 12 months: Yes Number of Cigarettes Smoked Daily: 15 Information on smoking cessation initiated: No 'Breaking Loose' booklet given: 07/31/17 Hx Alcohol Use: No Drug/Substance Use Hx: No Substance Use Type: Marijuana, Opiates Hx Substance Use Treatment: Yes ([facility]) Review of Systems - Review of Systems Able to Perform ROS?: Yes Is the patient limited Malagasy proficient: No Constitutional: No: Symptoms Reported HEENTM: No: Symptoms Reported Respiratory: No: Symptoms reported Cardiac (ROS): No: Symptoms Reported ABD/GI: No: Symptoms Reported : No: Symptoms Reported Musculoskeletal: No: Symptoms Reported Integumentary: No: Symptoms Reported Neurological: Yes: See HPI *Physical Exam - Vital Signs Last Vital Signs Temp Pulse Resp BP Pulse Ox 98.2 F 129 H 18 135/90 100 03/21/18 04:33 03/21/18 04:33 03/21/18 04:33 03/21/18 04:33 03/21/18 04:33 - Physical Exam General Appearance: Yes: Appropriately Dressed. No: Apparent Distress HEENT: positive: Normal ENT Inspection Neck: positive: Trachea midline, Supple Respiratory/Chest: positive: Lungs Clear, Normal Breath Sounds. negative: Respiratory Distress, Accessory Muscle Use Cardiovascular: positive: Regular Rhythm, Regular Rate. negative: Murmur Gastrointestinal/Abdominal: positive: Normal Bowel Sounds, Soft. negative: Tender Musculoskeletal: positive: Normal Inspection. negative: CVA Tenderness Extremity: positive: Normal Inspection Integumentary: positive: Normal Color, Dry, Warm Neurologic: positive: travel specialist II-XII NML intact, Fully Oriented, Alert, Normal Mood/ Affect, Normal Response, Motor Strength 5/5 Medical Decision Making - Medical Decision Making 03/21/18 04:42 A/P: 37-year-old male who denies past medical history with intermittent dizziness for the past 3 hours. EOMI. PERRLA. Cranial lives 2 through 12 grossly intact. Gait steady. No nystagmus present Patient is refusing Jonathan-Hallpike maneuver Lungs clear to auscultation bilaterally. Vital signs notable for heart rate of 129 EKG, meclizine, Tylenol, reassess 03/21/18 04:48 Chart review reveals patient has history of PCP use and psychosis. Patient denies any drug use today and denies any hallucinations, visual hallucinations, suicidal ideation, homicidal ideation or paranoidal ideation. 03/21/18 05:28 Patient currently free of symptoms. Requesting discharge at this time. Apical heart rate of 102 presently. I will discharge the patient home. *DC/Admit/Observation/Transfer Diagnosis at time of Disposition: BPPV (benign paroxysmal positional vertigo) Qualifiers: Laterality: unspecified laterality Qualified Code(s): H81.10 - Benign paroxysmal vertigo, unspecified ear - Discharge Dispostion Disposition: HOME Condition at time of disposition: Stable Decision to Admit order: No - Referrals - Patient Instructions Printed Discharge Instructions: Benign Paroxysmal Positional Vertigo Additional Instructions: Take meclizine [id number] as directed by engagement engineer's instructions for dizziness. Return to emergency department for any concerns. - Post Discharge Activity
[2018-03-21] MEDS ORDERED: ACETAMINOPHEN 325 MG TABLET (FP) ONE (04:54)
[2018-03-21] MEDS ORDERED: MECLIZINE HCL 25 MG TABLET (FP) ONE (04:54)
== END 2018-03-21 05:38 | disposition home or self-care (01) ==
LOC: JER 03:10
DX: H81.10 Benign paroxysmal vertigo, unspecified ear (principal); F41.9 Anxiety disorder, unspecified; F32.9 Major depressive disorder, single episode, unspecified; F17.210 Nicotine dependence, cigarettes, uncomplicated
CPT/HCPCS: 99281-25

== ENCOUNTER 2018-03-23 04:09 | Emergency (ER) | payer OTHER ==
[2018-03-23 04:37] VITALS: BP 122/65; PULSE 96; TEMP 98.1; BMI 28.1
--- NOTE | 2018-03-23 04:38 | PDOC ---
History of Present Illness - General Chief Complaint: Weakness Stated Complaint: NOT FEELING WELL Time Seen by Provider: 03/23/18 04:23 - History of Present Illness Initial Comments: 37-year-old male presents for evaluation the emergency room requesting a toxicology screen he has no symptoms or complaints. 03/23/18 04:35 Past History - Past Medical History Allergies/Adverse Reactions: Allergies Allergy/AdvReac Type Severity Reaction Status Date / Time codeine AdvReac Verified 03/23/18 04:37 Home Medications: Ambulatory Orders NK [No Known Home Medication] 03/23/18 Anemia: No Asthma: No Cancer: No Cardiac Disorders: No CVA: No COPD: No CHF: No DVT: No Dementia: No Diabetes: No GI Disorders: No Disorders: No HTN: No Hypercholesterolemia: No Kidney Stones: No Liver Disease: No Psychiatric Problems: Yes (h/o anxiety/depression ) Seizures: No Thyroid Disease: No - Surgical History Abdominal Surgery: No Appendectomy: No Cardiac Surgery: No Cholecystectomy: No Lung Surgery: No Neurologic Surgery: No Orthopedic Surgery: Yes (repair of achillis tendon left at age of 16 years) - Reproductive History Testicular Surgery: No - Immunization History Immunization Up to Date: Yes - Suicide/Smoking/Psychosocial Hx Smoking History: Current every day smoker Have you smoked in the past 12 months: Yes Number of Cigarettes Smoked Daily: 15 'Breaking Loose' booklet given: 07/31/17 Hx Alcohol Use: No Drug/Substance Use Hx: No Substance Use Type: Marijuana, Opiates Hx Substance Use Treatment: Yes ([facility]) Review of Systems - Review of Systems Comments:: GENERAL/CONSTITUTIONAL: [No fever or chills. No weakness. No weight change.] HEAD, EYES, EARS, NOSE AND THROAT: [No change in vision. No ear pain or discharge. No sore throat.] CARDIOVASCULAR: [No chest pain or shortness of breath.] RESPIRATORY: [No cough, wheezing, or hemoptysis.] GASTROINTESTINAL: [No nausea, vomiting, diarrhea or constipation. No rectal bleeding.] GENITOURINARY: [No dysuria, frequency, or change in urination.] MUSCULOSKELETAL: [No joint or muscle swelling or pain. No neck or back pain.] SKIN AND BREASTS: [No rash or easy bruising.] NEUROLOGIC: [No headache, vertigo, loss of consciousness, or loss of sensation.] PSYCHIATRIC: [No depression or anxiety.] ENDOCRINE: [No increased thirst. No abnormal weight change.] HEMATOLOGIC/LYMPHATIC: [No anemia, easy bleeding, or history of blood clots.] ALLERGIC/IMMUNOLOGIC: [No hives or skin allergy. No latex allergy.] 03/23/18 04:35 *Physical Exam - Physical Exam Comments: GENERAL: [The patient is awake, alert, and fully oriented, in no acute distress. ] HEAD: [Normal with no signs of trauma.]movements intact, sclera anicteric, conjunctiva clear.] LUNGS: [Breath sounds equal, clear to auscultation bilaterally. No wheezes, and no crackles.] HEART: [Regular rate and rhythm, normal S1 and S2 without murmur, rub or gallop. ] ABDOMEN: [Soft, nontender, normoactive bowel sounds. No guarding, no rebound. No masses.] EXTREMITIES: [Normal range of motion, no edema. No clubbing or cyanosis. No cords, erythema, or tenderness.] NEUROLOGICAL: [Cranial nerves II through XII grossly intact. Normal speech, normal gait.] PSYCH: [Anxious with a flat affect, denies suicidal or homicidal ideation] SKIN: [Warm, Dry, normal turgor, no rashes or lesions noted.] 03/23/18 05:21 *DC/Admit/Observation/Transfer Diagnosis at time of Disposition: Drug abuse - Discharge Dispostion Disposition: ELOPED Condition at time of disposition: Stable Decision to Admit order: No - Referrals Referrals: Wero Strange MD [Staff Physician] - - Patient Instructions - Post Discharge Activity
[2018-03-23 05:56] LABS: COCAINE, UR NEGATIVE ng/ml (CUTOFF=300); OPIATES, URI NEGATIVE ng/ml (CUTOFF=300); URINE BARBITURATES NEGATIVE ng/ml (CUTOFF=200); URINE BENZODIAZEPINES NEGATIVE ng/ml (CUTOFF=200)
[2018-03-23 05:57] LABS: METHADONE, UR NEGATIVE ng/ml (CUTOFF=300)
[2018-03-23 05:58] LABS: URINE AMPHETAMINES POSITIVE ng/ml (CUTOFF=500)
[2018-03-23 05:59] LABS: PHENCYCLIDINE,URINE POSITIVE ng/ml (CUTOFF=25)
== END 2018-03-23 07:27 | disposition left against medical advice (07) ==
LOC: JER 04:09
DX: F12.10 Cannabis abuse, uncomplicated (principal); F16.10 Hallucinogen abuse, uncomplicated; F15.10 Other stimulant abuse, uncomplicated
CPT/HCPCS: 80307; 99281-25; 99282-25

== ENCOUNTER 2018-03-27 02:12 | Inpatient (IN) | payer OTHER ==
--- NOTE | 2018-03-27 03:30 | HP ---
Admission ROS [facility] - HPI Allergies/Adverse Reactions: Allergies Allergy/AdvReac Type Severity Reaction Status Date / Time codeine AdvReac Verified 03/23/18 04:37 Patient History - Patient Medical History Hx Anemia: No Hx Asthma: No Hx Chronic Obstructive Pulmonary Disease (COPD): No Hx Cancer: No Hx Cardiac Disorders: No Hx Congestive Heart Failure: No Hx Hypertension: No Hx Hypercholesterolemia: No Hx Pacemaker: No HX Cerebrovascular Accident: No Hx Seizures: No Hx Dementia: No Hx Diabetes: No Hx Gastrointestinal Disorders: No Hx Liver Disease: No Hx Genitourinary Disorders: No Hx Sexually Transmitted Disorders: No Hx Renal Disease (ESRD): No Hx Thyroid Disease: No Hx Human Immunodeficiency Virus (HIV): No (last 04/19 negative) Hx Hepatitis C: No Hx Depression: Yes (bipolar) Hx Suicide Attempt: No Hx Bipolar Disorder: No Hx Schizophrenia: Yes - Patient Surgical History Past Surgical History: Yes Hx Neurologic Surgery: No Hx Cataract Extraction: No Hx Cardiac Surgery: No Hx Lung Surgery: No Hx Breast Surgery: No Hx Breast Biopsy: No Hx Abdominal Surgery: No Hx Appendectomy: No Hx Cholecystectomy: No Hx Genitourinary Surgery: No Hx Section: No Hx Orthopedic Surgery: Yes (repair of achillis tendon left at age of 16 years) Anesthesia Reaction: No - PPD History Date: 06/13/17 - Smoking Cessation Smoking history: Current every day smoker Have you smoked in the past 12 months: Yes Aproximately how many cigarettes per day: 15 Hx Chewing Tobacco Use: No Initiated information on smoking cessation: Yes 'Breaking Loose' booklet given: 03/27/18 Screened but not Admitted - Documentation of Visit Screened but not Admitted: Yes Left Prior to Completion of Assessment: No Insurance Authorization Denied: No Patient Does Not Meet Criteria for Admission: Yes Alternative Treatment/Long Term Info Provided: Yes Additional Information/Explanation: Patient reports that he is here to detox from PCP. His drug screen result was positive for THC, PCP, BZO. Patient does not meet criteria for admission. He is alert and oriented x 3. Medically stable and vital signs stable. [employer] provided for transportation and information for rehabilitation facilities provided. [facility] Breath Alcohol Content Breath Alcohol Content: 0 Vital Signs - Vital Signs Vital Signs Refused: Yes Temperature: 97.2 F Temperature Source: Oral Pulse Rate: 97 Respiratory Rate: 16 Blood Pressure: 137/72 BP Location: Left Arm Blood Pressure Position: Sitting - Height Height: 5 ft 8 in - Weight Weight: 208 lb Weight Measurement Method: Standing Scale Body Mass Index (BMI): 31.6 - Bowel Function Bowel Movement: No Urine Drug Screen - Test Device Lot Number: [id number] Expiration Date: 01/01/20 - Control Is Test Valid: Yes - Results Drug Screen Negative: No Urine Drug Screen Results: THC-Marijuana, PCP-Phencyclidine, BZO-Benzodiazepines
[2018-03-27 10:28] VITALS: BMI 31.1
--- NOTE | 2018-03-27 12:59 | HP ---
Admission [facility] Chief Complaint: i need help to come in for rehab for pcp,marijuana,xanax,seeking rehab, Allergies/Adverse Reactions: Allergies Allergy/AdvReac Type Severity Reaction Status Date / Time codeine AdvReac Verified 03/27/18 10:57 History of Present Illness: this 37 years old male with pcp,marijuana,xanax dependence,seeking rehab,last treatment in [facility] rehab 06/10/17 to 06/03/17 nicotine dependence bipolar disorder,depression,adhd,ptsd for rehab - Ebola screening Have you traveled outside of the country in the last 21 days: No Have you been sick,other than usual withdrawal symptoms: No - Review of Systems Constitutional: No Symptoms Reported EENT: reports: No Symptoms Reported Respiratory: reports: No Symptoms reported Cardiac: reports: No Symptoms Reported GI: reports: No Symptoms Reported : reports: No Symptoms Reported Musculoskeletal: reports: No Symptoms Reported Integumentary: reports: No Symptoms Reported Neuro: reports: No Symptoms reported Endocrine: reports: No Symptoms Reported Hematology: reports: No Symptoms Reported Psychiatric: reports: No Sypmtoms Reported, Judgement Intact, Mood/Affect Appropiate, Orientated x3, other (biploar disorder,ptsd,depression) Patient History - Patient Medical History Hx Anemia: No Hx Asthma: No Hx Chronic Obstructive Pulmonary Disease (COPD): No Hx Cancer: No Hx Cardiac Disorders: No Hx Congestive Heart Failure: No Hx Hypertension: No Hx Hypercholesterolemia: No Hx Pacemaker: No HX Cerebrovascular Accident: No Hx Seizures: No Hx Dementia: No Hx Diabetes: No Hx Gastrointestinal Disorders: No Hx Liver Disease: No Hx Genitourinary Disorders: No Hx Sexually Transmitted Disorders: No Hx Renal Disease (ESRD): No Hx Thyroid Disease: No Hx Human Immunodeficiency Virus (HIV): No (last 04/19 negative) Hx Hepatitis C: No Hx Depression: Yes (bipolar) Hx Suicide Attempt: Yes (overdose 01/18 ) Hx Bipolar Disorder: No Hx Schizophrenia: Yes Other Medical History: no suicidal,no homicidal - Patient Surgical History Past Surgical History: Yes Hx Neurologic Surgery: No Hx Cataract Extraction: No Hx Cardiac Surgery: No Hx Lung Surgery: No Hx Breast Surgery: No Hx Breast Biopsy: No Hx Abdominal Surgery: No Hx Appendectomy: No Hx Cholecystectomy: No Hx Genitourinary Surgery: No Hx Section: No Hx Orthopedic Surgery: Yes (repair of achillis tendon left at age of 16 years) Anesthesia Reaction: No - PPD History Previous Implant?: Yes Documented Results: Negative w/proof Date: 06/13/17 Results: 0 mm PPD to be Administered?: No - Smoking Cessation Smoking history: Current every day smoker Have you smoked in the past 12 months: Yes Aproximately how many cigarettes per day: 2 Hx Chewing Tobacco Use: No Initiated information on smoking cessation: Yes 'Breaking Loose' booklet given: 03/27/18 - Substance & Tx. History Hx Alcohol Use: No Hx Substance Use: Yes Substance Use Type: Marijuana, Tranquilizers Hx Substance Use Treatment: Yes (rehab [facility] 06/10/17 to 06/13/17) - Substances Abused Alprazolam (Xanax) Route: Oral Frequency: 3-6 times per week Amount used: 2MG Age of first use: 37 Date of Last Use: 03/25/18 PCP Route: Smoking Frequency: Daily Amount used: 1-2 BAGS Age of first use: 20 Date of Last Use: 03/25/18 Marijuana/Hashish Route: Smoking Frequency: Daily Amount used: 1-2 GRAMS Age of first use: 20 Date of Last Use: 03/25/18 Family Disease History - Family Disease History Family History: Denies Admission Physical Exam S - Vital Signs Vital Signs: Vital Signs - 24 hr 03/27/18 03/27/18 03:41 10:24 Temperature 97.2 F L 97 F L Pulse Rate 97 H 84 Respiratory 16 20 Rate Blood Pressure 137/72 144/77 - Physical General Appearance: Yes: Within Normal Limits, No Apparent Distress HEENTM: Yes: Normal ENT Inspection, Normocephalic, LEILA, Pharynx Normal Respiratory: Yes: Lungs Clear, Normal Breath Sounds, No Respiratory Distress Neck: Yes: Within Normal Limits, Supple, Trachea in good position Breast: Yes: Within Normal Limits Cardiology: Yes: Within Normal Limits Abdominal: Yes: Within Normal Limits, Normal Bowel Sounds, Non Tender, Soft Genitourinary: Yes: Within Normal Limits Back: Yes: Within Normal Limits Musculoskeletal: Yes: Within Normal Limits Extremities: Yes: Normal Inspection, Normal Range of Motion Integumentary: Yes: Within Normal Limits Lymphatic: Yes: Within Normal Limits - Diagnostic (1) Cannabis dependence Current Visit: Yes Status: Acute (2) PCP dependence Current Visit: No Status: Acute (3) Benzodiazepine abuse, episodic Current Visit: Yes Status: Acute (4) Bipolar disorder Current Visit: Yes Status: Acute (5) Depression Current Visit: Yes Status: Acute (6) PTSD (post-traumatic stress disorder) Current Visit: Yes Status: Acute (7) Weight loss Current Visit: Yes Status: Acute (8) ADHD Current Visit: Yes Status: Acute Cleared for Admission [facility] - Detox or Rehab Claeared for Rehab Admission: Yes [facility] Breath Alcohol Content Breath Alcohol Content: 0 Urine Drug Screen - Results Drug Screen Negative: No Urine Drug Screen Results: THC-Marijuana, PCP-Phencyclidine, BZO-Benzodiazepines Inpatient Rehab Admission - Initial Determination Are CD services needed?: Yes Free of communicable disease: Yes Not in need of hospitalization: Yes - Rehab Admission Criteria Previous failed treatment: Yes Poor recovery environment: Yes Comorbidities: Yes Lacks judgement: No Patient is meeting Inpatient Rehab admission criteria:: Yes
[2018-03-27] MEDS ORDERED: P-EPHED 60MG/TRIPROLIDI 2.5MG TABLET PO PRN (13:17)
[2018-03-27] MEDS ORDERED: ACETAMINOPHEN 325 MG TABLET (FP) PO PRN (13:17)
[2018-03-27] MEDS ORDERED: IBUPROFEN 400 MG TABLET (FP) PO PRN (13:17)
[2018-03-27] MEDS ORDERED: MAGNESIUM CITRATE 300 ML BOTTLE PO PRN (13:17)
[2018-03-27] MEDS ORDERED: MAGNESIUM HYDROX 2400MG/30ML ORAL SUSPENSION 30 ML CUP PO PRN (13:17)
[2018-03-27] MEDS ORDERED: hydrOXYzine PAMOATE 50 MG CAPSULE (FP) PO PRN (13:17)
[2018-03-27] MEDS ORDERED: guaiFENesin/D-METHORPHAN HB 10 ML UNIT-DOSE CUPS PO PRN (13:17)
[2018-03-27] MEDS ORDERED: MENTHOL/PHENOL 1 EACH UD MM PRN (13:17)
[2018-03-27] MEDS ORDERED: LOPERAMIDE HCL 2 MG CAPSULE PO PRN (13:17)
[2018-03-27] MEDS ORDERED: MAG HYDROX/AL HYDROX/SIMETH 30 ML UNIT-DOSE CUP PO PRN (13:17)
--- NOTE | 2018-03-27 14:43 | HP ---
Psychiatrist Admission - Data Date of interview: 03/27/18 Admission source: [facility] Identifying data: This is the first 5N inpatient rehab admission for this 37 year old single male residing in [place] with his parents, he is unemployed and father of 5. Medical History: Repaired of achillis tendon Lt at the age of 16 years, smokes cigarettes 4 a day. Smokes 1-2 daily. Psychiatric History: Patient is poor historian, he admits was hospiatlized twice , most recent last month at [facility] for deperssed mood for 7 days, reports was diagnosed as "depression, anxiety, ptsd and schizophrenia". Reports he visited ER at [facility] due to depresed mood and was d/c .He currently on Zoloft 50 mg po daily and Risperdal 1 mg hs. Physical/Sexual Abuse/Trauma History: Denies Additional Comment: Reports having multiple restraining orders due to his violent behavior Vital Signs: Vital Signs - 24 hr 03/27/18 03/27/18 03:41 10:24 Temperature 97.2 F L 97 F L Pulse Rate 97 H 84 Respiratory 16 20 Rate Blood Pressure 137/72 144/77 Allergies/Adverse Reactions: Allergies Allergy/AdvReac Type Severity Reaction Status Date / Time codeine AdvReac Verified 03/27/18 10:57 Date of last physical exam: 03/27/18 Concur with the findings of this exam: Yes - Substance Abuse/Tx History Hx Alcohol Use: No Hx Substance Use: Yes (PCP daily use) Substance Use Type: Marijuana (daily use), Tranquilizers (xanax 3-4 times a week ) Hx Substance Use Treatment: Yes Mental Status Exam - Mental Status Exam Alert and Oriented to: Place, Person Cognitive Function: Impaired Patient Appearance: Unkempt Mood: Apathetic Affect: Mood Congruent, Blunted, Constricted Patient Behavior: Cooperative Speech Pattern: Appropriate Voice Loudness: Normal Thought Process: Intact Thought Disorder: Not Present Hallucinations: Denies Suicidal Ideation: Denies Homicidal Ideation: Denies Insight/Judgement: Fair Sleep: Fair Appetite: Good Muscle strength/Tone: Normal Gait/Station: Normal Psychiatric Findings - Problem List ([place] 1, 2,3) (1) Benzodiazepine abuse, episodic Current Visit: Yes Status: Acute (2) Cannabis dependence Current Visit: Yes Status: Acute (3) PTSD (post-traumatic stress disorder) Current Visit: Yes Status: Acute (4) Schizoaffective disorder Current Visit: No Status: Acute - Initial Treatment Plan Initial Treatment Plan: Will restart Risperda 1 mg po hs, Zoloft 50 mg po daily , monitor progress as needed.
[2018-03-27 16:17] LABS: HEMATOCRIT 39.1 % (35.4-49); HEMOGLOBIN 12.5 GM/dL (11.7-16.9); MCH 27.3 pg (25.7-33.7); MEAN CELL VOLUME 85.1 fl (80-96); PLATELET COUNT 413 K/MM3 (134-434); RBC 4.59 M/mm3 (4.00-5.60); RDW 14.2 % (11.9-15.9); WHITE BLOOD COUNT 6.4 K/mm3 (4.0-10.0)
[2018-03-27 16:32] LABS: ALBUMIN 3.7 g/dl (3.4-5.0); ANION GAP 4 (8-16); BILIRUBIN,TOTAL 0.4 mg/dL (0.2-1.0); BLOOD UREA NITROGEN 13 mg/dL (7-18); CALCIUM 8.4 mg/dL (8.5-10.1); CHLORIDE 105 mmol/L (98-107); CO2 31 mmol/L (21-32); CREATININE 0.9 mg/dL (0.7-1.3); GLUCOSE,RANDOM 85 mg/dL (74-106); SGOT/AST 16 U/L (15-37); SGPT/ALT 34 U/L (12-78); SODIUM 140 mmol/L (136-145)
[2018-03-27 16:33] LABS: ALK PHOS 49 U/L (45-117)
[2018-03-27] MEDS ORDERED: MELATONIN 5 MG TABLETS PO PRN (22:00)
[2018-03-27] MEDS: risperiDONE 1 MG TABLET (FP) PO SCH (22:24)
[2018-03-27] MEDS: THIAMINE HCL 100 MG TABLET (FP) PO SCH (22:24)
[2018-03-27 23:22] LABS: URINE APPEARANCE CLEAR; URINE BILIRUBIN NEGATIVE (<2.0 mg/dL); URINE BLOOD NEGATIVE (NEGATIVE); URINE COLOR YELLOW; URINE GLUCOSE (UA) NEGATIVE (NEGATIVE); URINE KETONE NEGATIVE (NEGATIVE); URINE LEUK ESTERASE NEGATIVE (NEGATIVE); URINE NITRITE NEGATIVE (NEGATIVE); URINE PROTEIN NEGATIVE (NEGATIVE); URINE UROBILINOGEN NEGATIVE mg/dL (0.2-1.0)
--- NOTE | 2018-03-28 08:47 | EKG ---
Test Reason : Blood Pressure : / mmHG Vent. Rate : 084 BPM Atrial Rate : 084 BPM P-R Int : 130 ms QRS Dur : 096 ms QT Int : 386 ms P-R-T Axes : 072 074 055 degrees QTc Int : 456 ms NORMAL SINUS RHYTHM NORMAL ECG WHEN COMPARED WITH ECG OF 25-SEP-2017 17:58, NO SIGNIFICANT CHANGE WAS FOUND Confirmed by STEVEN EDGAR, NAOMY ([id number]) on 03/28/2018 8:47:11 AM Referred By: Veronica LOMAX Confirmed By:NAOMY HARRIS MD
[2018-03-28] MEDS: SERTRALINE HCL 50 MG TABLET (FP) PO SCH (09:43)
[2018-03-28] MEDS: PRENATAL VITAMINS W/ FOLIC ACID TABLET (FP) PO SCH (09:43)
[2018-03-28] MEDS: risperiDONE 1 MG TABLET (FP) PO SCH (21:52)
[2018-03-28] MEDS: THIAMINE HCL 100 MG TABLET (FP) PO SCH (21:53)
[2018-03-29] MEDS: SERTRALINE HCL 50 MG TABLET (FP) PO SCH (10:03)
[2018-03-29] MEDS: PRENATAL VITAMINS W/ FOLIC ACID TABLET (FP) PO SCH (10:03)
[2018-03-29] MEDS: THIAMINE HCL 100 MG TABLET (FP) PO SCH (21:48)
[2018-03-29] MEDS: risperiDONE 1 MG TABLET (FP) PO SCH (21:48)
[2018-03-30] MEDS: SERTRALINE HCL 50 MG TABLET (FP) PO SCH (10:04)
[2018-03-30] MEDS: PRENATAL VITAMINS W/ FOLIC ACID TABLET (FP) PO SCH (10:04)
[2018-03-30] MEDS: THIAMINE HCL 100 MG TABLET (FP) PO SCH (21:15)
[2018-03-30] MEDS: risperiDONE 1 MG TABLET (FP) PO SCH (21:15)
[2018-03-31] MEDS: SERTRALINE HCL 50 MG TABLET (FP) PO SCH (10:01)
[2018-03-31] MEDS: PRENATAL VITAMINS W/ FOLIC ACID TABLET (FP) PO SCH (10:01)
[2018-03-31] MEDS: THIAMINE HCL 100 MG TABLET (FP) PO SCH (21:10)
[2018-03-31] MEDS: risperiDONE 1 MG TABLET (FP) PO SCH (21:11)
[2018-04-01] MEDS: SERTRALINE HCL 50 MG TABLET (FP) PO SCH (10:36)
[2018-04-01] MEDS: PRENATAL VITAMINS W/ FOLIC ACID TABLET (FP) PO SCH (10:36)
[2018-04-01] MEDS: risperiDONE 1 MG TABLET (FP) PO SCH (21:48)
[2018-04-01] MEDS: THIAMINE HCL 100 MG TABLET (FP) PO SCH (21:48)
[2018-04-02] MEDS: PRENATAL VITAMINS W/ FOLIC ACID TABLET (FP) PO SCH (10:03)
[2018-04-02] MEDS: SERTRALINE HCL 50 MG TABLET (FP) PO SCH (10:04)
[2018-04-02] MEDS: risperiDONE 1 MG TABLET (FP) PO SCH (21:21)
[2018-04-02] MEDS: THIAMINE HCL 100 MG TABLET (FP) PO SCH (21:21)
[2018-04-03] MEDS: PRENATAL VITAMINS W/ FOLIC ACID TABLET (FP) PO SCH (09:39)
[2018-04-03] MEDS: SERTRALINE HCL 50 MG TABLET (FP) PO SCH (09:39)
[2018-04-03] MEDS: THIAMINE HCL 100 MG TABLET (FP) PO SCH (21:48)
[2018-04-03] MEDS: risperiDONE 1 MG TABLET (FP) PO SCH (21:48)
[2018-04-04] MEDS: SERTRALINE HCL 50 MG TABLET (FP) PO SCH (09:38)
[2018-04-04] MEDS: PRENATAL VITAMINS W/ FOLIC ACID TABLET (FP) PO SCH (09:38)
[2018-04-04] MEDS: THIAMINE HCL 100 MG TABLET (FP) PO SCH (21:05)
[2018-04-04] MEDS: risperiDONE 1 MG TABLET (FP) PO SCH (21:06)
[2018-04-05] MEDS: PRENATAL VITAMINS W/ FOLIC ACID TABLET (FP) PO SCH (10:20)
[2018-04-05] MEDS: SERTRALINE HCL 50 MG TABLET (FP) PO SCH (10:20)
[2018-04-05] MEDS: risperiDONE 1 MG TABLET (FP) PO SCH (22:02)
[2018-04-05] MEDS: THIAMINE HCL 100 MG TABLET (FP) PO SCH (22:02)
[2018-04-06 06:42] VITALS: BP 122/65; PULSE 77; TEMP 97.9
[2018-04-06] MEDS: SERTRALINE HCL 50 MG TABLET (FP) PO SCH (10:37)
[2018-04-06] MEDS: PRENATAL VITAMINS W/ FOLIC ACID TABLET (FP) PO SCH (10:37)
--- NOTE | 2018-04-06 12:20 | PN ---
Psychiatric Progress Note Vital Signs: Vital Signs Period Temp Pulse Resp BP Sys/Reyes Pulse Ox Last 24 Hr 97.9 F 77 16-18 122/65 Date of Session: 04/06/18 Chief Complaint:: Discharge visit HPI: Case of a 38 y/o AA male, admitted on 03/27/[address] to address cannabis,phencyclidine,nicotine,benzodiazepine dependence co-morbid with Schizoaffective Disorder and Post-Traumatic Disorder.Patient has decided to leave the program. ROS: Unremarkable.No somatic complaints.Patient is alert and fully oriented.Cognitively intact. Current Medications: Active Medications Generic Name Dose Route Start Last Admin Trade Name Freq PRN Reason Stop Dose Admin Acetaminophen 650 mg 03/27/18 13:17 Tylenol - PO Q4H PRN FEVER Al Hydroxide/Mg Hydroxide 30 ml 03/27/18 13:17 Mylanta Oral Suspension - PO Q6H PRN DYSPEPSIA Eucalyptus/Menthol/Phenol/Sorbitol 1 each 03/27/18 13:17 Cepastat Lozenge - MM Q4H PRN SORE THROAT Hydroxyzine Pamoate 50 mg 03/27/18 13:17 Vistaril - PO Q4H PRN AGITATION Ibuprofen 400 mg 03/27/18 13:17 Motrin - PO Q6H PRN Pain level 4-6 Loperamide HCl 4 mg 03/27/18 13:17 Imodium - PO Q6H PRN DIARRHEA Magnesium Citrate 300 ml 03/27/18 13:17 Citroma - PO Q48H PRN CONSTIPATION Magnesium Hydroxide 30 ml 03/27/18 13:17 Milk Of Magnesia - PO DAILY PRN CONSTIPATION Melatonin 5 mg 03/27/18 22:00 Melatonin PO HS PRN INSOMNIA Multivit/Folic Acid/Iron 1 tab 03/28/18 10:00 04/06/18 10:37 Vitamins ([facility]) - PO Not Given DAILY DICKSON Pseudoephedrine/Triprolidine 1 combo 03/27/18 13:17 Actifed - PO TID PRN NASAL CONGESTION Risperidone 1 mg 03/27/18 22:00 04/05/18 22:02 Risperdal - PO Not Given HS DICKSON Sertraline HCl 50 mg 03/28/18 10:00 04/06/18 10:37 Zoloft - PO Not Given DAILY DICKSON Thiamine HCl 100 mg 03/27/18 22:00 04/05/18 22:02 Vitamin B1 - PO 100 mg HS DICKSON Administration Medication(s) Change(s): Patient declines scripts. Current Side Effect: No Lab tests ordered: No Lab tests reviewed: Yes Provider note:: Patient has made the decision to leave this program.Issues are addressed and treatment goals partially met.Mr Cruz declares that he does " not get along with some staff and peers " and he feels that this program is not suitable for his needs." I can manage on my own.I know other programs in [facility] where I am guaranteed better services." Patient is coherent,relevant and goal- directed.No evidence of psychosis.Patient denies suicidal / homicidal ideation, intent or plan.Future-oriented. Patient is at his baseline.Has full capacity to make own decision pertinent to his welfare.Mr Cruz declines to reconsider his decison to leave this program in spite of staff encouragement for continuation of inpatient rehabilitation care. Total face to face time:: 35 Mental Status Exam - Mental Status Exam Alert and Oriented to: Time, Place, Person Cognitive Function: Good Patient Appearance: Well Groomed Mood: Hopeful, Euthymic Affect: Appropriate, Normal Range Patient Behavior: Appropriate, Cooperative Speech Pattern: Clear, Appropriate Voice Loudness: Normal Thought Process: Intact, Goal Oriented Thought Disorder: Not Present Hallucinations: Denies Suicidal Ideation: Denies Homicidal Ideation: Denies Insight/Judgement: Fair Appetite: Good Muscle strength/Tone: Normal Gait/Station: Normal Psychiatric Treatment Plan - Problem List (1) Benzodiazepine dependence Comment: . (2) Cannabis dependence Comment: . (3) PCP dependence Comment: . (4) Nicotine dependence Comment: . (5) PTSD (post-traumatic stress disorder) Comment: .As per self-report. (6) Schizoaffective disorder Comment: .
== END 2018-04-06 11:45 | disposition home or self-care (01) | DRG 772 ==
LOC: YASAS 02:12 → Y5N 13:05
PROVIDERS: ADMIT Psychiatry & Neurology Psychiatry; ATTEND Psychiatry & Neurology Psychiatry
PROC: HZ42ZZZ Group Counseling for Substance Abuse Treatment, Cognitive-Behavioral (ICD-10-PCS; principal; 2018-03-27)
DX: F13.20 Sedative, hypnotic or anxiolytic dependence, uncomplicated (principal); F16.20 Hallucinogen dependence, uncomplicated; F12.20 Cannabis dependence, uncomplicated; F17.210 Nicotine dependence, cigarettes, uncomplicated; F43.10 Post-traumatic stress disorder, unspecified; F25.9 Schizoaffective disorder, unspecified; F32.9 Major depressive disorder, single episode, unspecified; F90.9 Attention-deficit hyperactivity disorder, unspecified type; Z87.898 Personal history of other specified conditions; Z91.5 Personal history of self-harm
CPT/HCPCS: 36415; 80053; 81003; 85027; 86593; 93005; 93010

== ENCOUNTER 2018-04-15 00:57 | Emergency (ER) | payer OTHER | END 2018-04-15 02:36 | disposition left against medical advice (07) | LOC: JER 00:57 | DX: Z53.21 Procedure and treatment not carried out due to patient leaving prior to being seen by health care provider (principal) | CPT/HCPCS: 99281-25 ==

== ENCOUNTER 2018-04-27 05:43 | Emergency (ER) | payer OTHER ==
--- NOTE | 2018-04-27 05:52 | PDOC ---
History of Present Illness - General Chief Complaint: Suicidal Stated Complaint: SUICIDAL IDEATIONS Time Seen by Provider: 04/27/18 05:51 - History of Present Illness Initial Comments: 04/27/18 06:04 Mr. Cruz is a 38 yo male w/ pmh of substance abuse and bipolar disorder who presents for evaluation with complaints of suicidal ideation as of this morning. He denies any plan but says he is having thoughts of harming himself. Denies any homicidal ideation. Mr. Cruz reports he has not been taking his medications and that also he has not slept in "a couple" of days. Denies any alcohol or substance abuse. The patient denies chest pain, shortness of breath, headache and dizziness. Denies fever, chills, nausea, vomit, diarrhea and constipation. Denies dysuria, frequency, urgency and hematuria. Allergies: Codeine Past History - Past Medical History Allergies/Adverse Reactions: Allergies Allergy/AdvReac Type Severity Reaction Status Date / Time codeine AdvReac Verified 04/27/18 05:50 Home Medications: Ambulatory Orders NK [No Known Home Medication] 03/23/18 Anemia: No Asthma: No Cancer: No Cardiac Disorders: No CVA: No COPD: No CHF: No DVT: No Dementia: No Diabetes: No GI Disorders: No Disorders: No HTN: No Hypercholesterolemia: No Kidney Stones: No Liver Disease: No Psychiatric Problems: Yes (h/o anxiety/depression ) Seizures: No Thyroid Disease: No - Surgical History Abdominal Surgery: No Appendectomy: No Cardiac Surgery: No Cholecystectomy: No Lung Surgery: No Neurologic Surgery: No Orthopedic Surgery: Yes (repair of achillis tendon left at age of 16 years) - Reproductive History Testicular Surgery: No - Immunization History Immunization Up to Date: Yes - Suicide/Smoking/Psychosocial Hx Smoking History: Current every day smoker Have you smoked in the past 12 months: Yes Number of Cigarettes Smoked Daily: 2 'Breaking Loose' booklet given: 03/27/18 Hx Alcohol Use: No Drug/Substance Use Hx: Yes (PCP daily use) Substance Use Type: Marijuana (daily use), Tranquilizers (xanax 3-4 times a week ) Hx Substance Use Treatment: Yes Review of Systems - Review of Systems Comments:: 04/27/18 06:11 GENERAL/CONSTITUTIONAL: No fever or chills. No weakness. HEAD, EYES, EARS, NOSE AND THROAT: No change in vision. No ear pain or discharge. No sore throat. CARDIOVASCULAR: No chest pain or shortness of breath RESPIRATORY: No cough, wheezing, or hemoptysis. GASTROINTESTINAL: No nausea, vomiting, diarrhea or constipation. GENITOURINARY: No dysuria, frequency, or change in urination. MUSCULOSKELETAL: No joint or muscle swelling or pain. No neck or back pain. SKIN: No rash NEUROLOGIC: No headache, vertigo, loss of consciousness, or change in strength/ sensation. ENDOCRINE: No increased thirst. No abnormal weight change HEMATOLOGIC/LYMPHATIC: No anemia, easy bleeding, or history of blood clots. ALLERGIC/IMMUNOLOGIC: No hives or skin allergy. *Physical Exam - Physical Exam Comments: 04/27/18 06:12 GENERAL: Awake, alert, and fully oriented, in no acute distress HEAD: No signs of trauma, normocephalic, atraumatic EYES: PERRLA, EOMI, sclera anicteric, conjunctiva clear ENT: Auricles normal inspection, hearing grossly normal, nares patent, oropharynx clear without exudates. Moist mucosa NECK: Normal ROM, supple, no lymphadenopathy, JVD, or masses LUNGS: No distress, speaks full sentences, clear to auscultation bilaterally HEART: Regular rate and rhythm, normal S1 and S2, no murmurs, rubs or gallops, peripheral pulses normal and equal bilaterally. ABDOMEN: Soft, nontender, normoactive bowel sounds. No guarding, no rebound. No masses EXTREMITIES: Normal inspection, Normal range of motion, no edema. No clubbing or cyanosis. NEUROLOGICAL: Cranial nerves II through XII grossly intact. Normal speech, normal gait, no focal sensorimotor deficits SKIN: Warm, Dry, normal turgor, no rashes or lesions noted. ED Treatment Course - LABORATORY CBC & Chemistry Diagram: 04/27/18 06:15 04/27/18 06:15 Medical Decision Making - Medical Decision Making 04/27/18 06:12 Mr. Cruz is a 38 yo male w/ pmh as described who presents for evaluation of homicidal ideation. Workup started to r/o non-psych causes of symptoms. 04/27/18 07:04 Patient signed off to Dr. Fine for further evaluation. *DC/Admit/Observation/Transfer Diagnosis at time of Disposition: Suicidal ideation - Referrals - Patient Instructions - Post Discharge Activity Forms/Work/School Notes: My Personal Safety Plan
[2018-04-27 05:56] VITALS: BMI 32.6
[2018-04-27 06:32] LABS: BASO % 0.5 % (0-2.0); EOS % 0.9 % (0-4.5); HEMATOCRIT 37.4 % (35.4-49); HEMOGLOBIN 12.5 GM/dL (11.7-16.9); LYMPH % 21.9 % (8-40); MCHC 33.4 g/dl (32.0-35.9); MEAN CELL VOLUME 83.9 fl (80-96); MEAN PLT VOLUME 7.8 fl (7.5-11.1); NEUT % 68.7 % (42.8-82.8); PLATELET COUNT 347 K/MM3 (134-434); RBC 4.46 M/mm3 (4.00-5.60); RDW 14.4 % (11.9-15.9); WHITE BLOOD COUNT 9.7 K/mm3 (4.0-10.0)
[2018-04-27 06:33] LABS: URINE APPEARANCE CLEAR; URINE BILIRUBIN NEGATIVE (<2.0 mg/dL); URINE COLOR DKYELLOW; URINE GLUCOSE (UA) NEGATIVE (NEGATIVE); URINE KETONE TRACE (NEGATIVE); URINE LEUK ESTERASE NEGATIVE (NEGATIVE); URINE NITRITE NEGATIVE (NEGATIVE)
[2018-04-27 06:38] LABS: URINE PROTEIN 1+ (NEGATIVE)
[2018-04-27 06:43] LABS: URINE HYALINE CAST 11 /lpf; URINE MUCUS MANY
[2018-04-27 06:59] LABS: ALBUMIN 3.9 g/dl (3.4-5.0); ANION GAP 6 (8-16); BILIRUBIN,TOTAL 0.5 mg/dL (0.2-1.0); BLOOD UREA NITROGEN 19 mg/dL (7-18); CALCIUM 8.5 mg/dL (8.5-10.1); CHLORIDE 107 mmol/L (98-107); CO2 28 mmol/L (21-32); CREATININE 1.1 mg/dL (0.7-1.3); GLUCOSE,RANDOM 91 mg/dL (74-106); POTASSIUM 3.9 mmol/L (3.5-5.1); SGOT/AST 24 U/L (15-37); SGPT/ALT 35 U/L (12-78); SODIUM 141 mmol/L (136-145); TOT PROT 7.2 g/dl (6.4-8.2)
[2018-04-27 07:02] LABS: COCAINE, UR NEGATIVE ng/ml (CUTOFF=300); METHADONE, UR NEGATIVE ng/ml (CUTOFF=300); OPIATES, URI NEGATIVE ng/ml (CUTOFF=300); URINE AMPHETAMINES NEGATIVE ng/ml (CUTOFF=500); URINE BARBITURATES NEGATIVE ng/ml (CUTOFF=200); URINE BENZODIAZEPINES NEGATIVE ng/ml (CUTOFF=200)
[2018-04-27 07:05] LABS: PHENCYCLIDINE,URINE POSITIVE ng/ml (CUTOFF=25)
--- NOTE | 2018-04-27 07:09 | PDOC ---
*Physical Exam - Vital Signs Last Vital Signs Temp Pulse Resp BP Pulse Ox 98.6 F 98 H 20 140/93 96 04/27/18 05:50 04/27/18 05:50 04/27/18 05:50 04/27/18 05:50 04/27/18 05:50 ED Treatment Course - LABORATORY CBC & Chemistry Diagram: 04/27/18 06:15 04/27/18 06:15 - ADDITIONAL ORDERS Additional order review: Laboratory Results 04/27/18 04/27/18 06:15 06:15 Urine Color Dkyellow Urine Appearance Clear Urine pH 5.0 Ur Specific [place] 1.038 H Urine Protein 1+ H Urine Glucose (UA) Negative Urine Ketones Trace H Urine Blood Negative Urine Nitrite Negative Urine Bilirubin Negative Urine Urobilinogen 2.0 Ur Leukocyte Esterase Negative Opiates Screen Negative Methadone Screen Negative Barbiturate Screen Negative Phencyclidine Screen Positive Ur Amphetamines Screen Negative MDMA (Ecstasy) Screen Positive Benzodiazepines Screen Negative Cocaine Screen Negative U Marijuana (THC) Screen Positive 04/27/18 06:15 RBC 4.46 MCV 83.9 MCHC 33.4 RDW 14.4 MPV 7.8 D Neutrophils % 68.7 Lymphocytes % 21.9 D Monocytes % 8.0 Eosinophils % 0.9 Basophils % 0.5 Medical Decision Making - Medical Decision Making 04/27/18 07:54 Psych called and d/w Dr. Diaz, who will come evaluate the patient PCP positive, MDMA, marijuana positive 04/27/18 10:47 -Evaluated by psych, will need transfer to inpatient psych 04/27/18 11:05 -patient has a bed available at [facility] *DC/Admit/Observation/Transfer Diagnosis at time of Disposition: Suicidal ideation - Discharge Dispostion Disposition: TRANSFER ACUTE CARE/OTHER HOSP Condition at time of disposition: Stable Decision to Admit order: No - Referrals - Patient Instructions Additional Instructions: Patient was accepted to [facility] with Dr. Paredes for further psychiatric evaluation. - Post Discharge Activity Forms/Work/School Notes: My Personal Safety Plan - Transfer to Acute Care Facility Receiving Facility: [facility]. Accepting Physician:: Dr. Paredes
[2018-04-27 07:38] LABS: ALK PHOS 51 U/L (45-117); SALICYLATE < 1.7 mg/dL
--- NOTE | 2018-04-27 07:43 | PDOC ---
Attending Attestation - Resident Resident Name: Hu Lau - ED Attending Attestation I have performed the following: I have examined & evaluated the patient, The case was reviewed & discussed with the resident, I agree w/resident's findings & plan, Exceptions are as noted - HPI HPI: 04/27/18 07:43 Patient is a 38 year old male with a significant past medical history of bipolar disorder and substance abuse who presents to the ED with complaints of suicidal ideations that began just prior to ED arrival. Patient reports experiencing thoughts of commiting suicide, stating he does not have a set plan but has been gradually thinking about it all morning. He reports having not slept in 2 days. Patient reports not using any alcohol or illicit substances in the last 24 hours, but states he has also been non compliant with his medications. Denies chest pain, Sob. Denies nausea, vomiting. Denies fevers,chills, Denies contact with sick individuals, out of state travelling. Denies any other symptoms. Allergies: Codeine Social history: No smoking. Denies illicit drug use Surgical history: None PMD: None - Physicial Exam PE: 04/27/18 07:44 GENERAL: Awake, alert, and fully oriented, in no acute distress HEAD: No signs of trauma EYES: PERRLA, EOMI, sclera anicteric, conjunctiva clear ENT: Auricles normal inspection, hearing grossly normal, nares patent, oropharynx clear without exudates. Moist mucosa NECK: Normal ROM, supple, no lymphadenopathy, JVD, or masses LUNGS: Breath sounds equal, clear to auscultation bilaterally. No wheezes, and no crackles HEART: Regular rate and rhythm, normal S1 and S2, no murmurs, rubs or gallops ABDOMEN: Soft, nontender, normoactive bowel sounds. No guarding, no rebound. No masses EXTREMITIES: Normal range of motion, no edema. No clubbing or cyanosis. No cords, erythema, or tenderness BACK: No midline spinal tenderness in cervical/thoracic/lumbar region NEUROLOGICAL: Normal speech, cranial nerves intact, negative pronator drift, 5/ 5 strength in all 4 extremities, normal sensation to light touch in all 4 extremities, normal cerebellar exam, normal gait, normal reflexes and tone SKIN: Warm, Dry, normal turgor, no rashes or lesions noted. - Medical Decision Making 04/27/18 07:00 38yo M hx bipolar d/o, PSA presents to the ED with suicidal ideation. Vitals and exam wnl. Will check labs, EKG for med clearance, and call psych consult. Pt is on 1:1 watch. Pt signed out to daytime attending for f/u on studies, further mgmt and dispo
[2018-04-27 08:09] LABS: ACETAMINOPHEN <2.0 ug/mL
--- NOTE | 2018-04-27 10:28 | CON.PSY ---
Psychiatry Consult Chief Complaint: Patient known to us f4rom his [id number] E$R visits. [id number] of Multiple sdubstance abuse. Positive fpr PCP, MDMA etc. [id number] reportede being suicidal without any concrete plans. patient has been sleeping i9n [facility]. Symptoms: reports: Self destructive thoughts - Previous Psychiatric Treatment Outpatient: None Inpatient: One prior admission - Previous Substance Abuse Treatment Outpatient: None Inpatient: None - Reason for Previous Treatment Reason for Previous Treatment: Conduct Disorder, Cocaine - Allergies Allergies: Allergies Allergy/AdvReac Type Severity Reaction Status Date / Time codeine AdvReac Verified 04/27/18 05:50 - Current Living Status Usual Living Arrangement: Alone - Current Mental Status Evaluation Appearance: Disheveled Attitude: Guarded, Suspicious - Affect Affect: Constrictive Appropriateness: Appropriate to Content - Mood Mood: Irritable - Speech/Language Expressive: Coherent - Psychomotor Activity Psychomotor Activity: Agitated - Thought Process Thought Process: Intact - Thought Content Hallucinations: Absent Delusions: Absent - Self Perception Self Perception: No Impairment - Concentration Serial Sevens Intact: No Simple Calculations Intact: No - Abstraction Proverb Interpretation: Intact Judgement: Minimally Impaired - Insight Insight: Impaired - Impulse Control Impulse Control: Moderately Impaired - Suicidal Ideation Suicidal Ideation: Yes (No plans) - Homicidal Ideation Homicidal Ideation: No Problem List - Problems (1) Substance abuse Code(s): F19.10 - OTHER PSYCHOACTIVE SUBSTANCE ABUSE, UNCOMPLICATED Assessment/Plan 1) Patient continues to voice suicidal thoughts but no plans at tyhis time. 2) Transfer to In patient[facility].
--- NOTE | 2018-04-27 12:05 | EKG ---
Test Reason : Blood Pressure : / mmHG Vent. Rate : 092 BPM Atrial Rate : 092 BPM P-R Int : 124 ms QRS Dur : 096 ms QT Int : 364 ms P-R-T Axes : 062 064 049 degrees QTc Int : 450 ms NORMAL SINUS RHYTHM NORMAL ECG WHEN COMPARED WITH ECG OF 27-MAR-2018 16:53, NO SIGNIFICANT CHANGE WAS FOUND Confirmed by DARLIN GUTIERREZ MD ([id number]) on 04/27/2018 12:05:19 PM Referred By: Confirmed By:DARLIN GUTIERREZ MD
--- NOTE | 2018-04-27 16:41 | PDOC ---
*Physical Exam - Vital Signs Last Vital Signs Temp Pulse Resp BP Pulse Ox 97.5 F L 99 H 18 132/74 100 04/27/18 14:35 04/27/18 14:35 04/27/18 14:35 04/27/18 14:35 04/27/18 14:35 ED Treatment Course - LABORATORY CBC & Chemistry Diagram: 04/27/18 06:15 04/27/18 06:15 - ADDITIONAL ORDERS Additional order review: Laboratory Results 04/27/18 04/27/18 04/27/18 06:15 06:15 06:15 Sodium 141 Potassium 3.9 Chloride 107 Carbon Dioxide 28 Anion Gap 6 L BUN 19 H Creatinine 1.1 Creat Clearance w eGFR > 60 Random Glucose 91 Calcium 8.5 Total Bilirubin 0.5 AST 24 D ALT 35 Alkaline Phosphatase 51 Total Protein 7.2 Albumin 3.9 TSH 1.67 Urine Color Dkyellow Urine Appearance Clear Urine pH 5.0 Ur Specific [place] 1.038 H Urine Protein 1+ H Urine Glucose (UA) Negative Urine Ketones Trace H Urine Blood Negative Urine Nitrite Negative Urine Bilirubin Negative Urine Urobilinogen 2.0 Ur Leukocyte Esterase Negative Urine WBC (Auto) 1 Urine RBC (Auto) 3 Hyaline Casts 11 Urine Mucus Many Salicylates < 1.7 Opiates Screen Negative Methadone Screen Negative Acetaminophen <2.0 Barbiturate Screen Negative Phencyclidine Screen Positive Ur Amphetamines Screen Negative MDMA (Ecstasy) Screen Positive Benzodiazepines Screen Negative Cocaine Screen Negative U Marijuana (THC) Screen Positive 04/27/18 06:15 RBC 4.46 MCV 83.9 MCHC 33.4 RDW 14.4 MPV 7.8 D Neutrophils % 68.7 Lymphocytes % 21.9 D Monocytes % 8.0 Eosinophils % 0.9 Basophils % 0.5 Medical Decision Making - Medical Decision Making 04/27/18 16:[address] [facility]. Pt is SI, although has no concrete plan but will need further psychiatric care to ensure his safety. pt in no acute distress here. stable for transfer Accepted by Dr. Rivera at [facility] per Leny from Social work. 2PC completed. *DC/Admit/Observation/Transfer Diagnosis at time of Disposition: Suicidal ideation - Discharge Dispostion Disposition: TRANSFER ACUTE CARE/OTHER HOSP Condition at time of disposition: Stable - Referrals - Patient Instructions Additional Instructions: Patient was accepted to [facility] with Dr. Paredes for further psychiatric evaluation. - Post Discharge Activity Forms/Work/School Notes: My Personal Safety Plan
[2018-04-27 17:43] VITALS: BP 111/61; PULSE 82
[2018-04-27 18:28] VITALS: TEMP 98.2
== END 2018-04-27 17:44 | disposition short-term general hospital (02) ==
LOC: JER 05:43
DX: R45.851 Suicidal ideations (principal); F31.9 Bipolar disorder, unspecified; F12.10 Cannabis abuse, uncomplicated; F15.10 Other stimulant abuse, uncomplicated; F16.10 Hallucinogen abuse, uncomplicated; F41.8 Other specified anxiety disorders; Z91.14 Patient's other noncompliance with medication regimen
CPT/HCPCS: 36415; 80053; 80307; 81003; 81015; 84443; 85025; 93005; 93010; 99285-25

== ENCOUNTER 2018-08-27 04:22 | Emergency (ER) | payer OTHER ==
[2018-08-27 04:45] VITALS: BMI 33.4
--- NOTE | 2018-08-27 04:46 | PDOC ---
History of Present Illness - General Stated Complaint: NAUSEA, ABDOMINAL PAIN Time Seen by Provider: 08/27/18 04:45 - History of Present Illness Initial Comments: 08/27/18 06:53 The patient is a 38 year old male with a history of substance abuse who presents for evaluation of abdominal pain and nausea. The patient reports a 1 month history of nausea with poorly described epigastric abdominal pain made worse with eating prompting his presentation to the ED. The patient is aggressive on exam and uncooperative. The patient otherwise denies fevers, chills, SOB, chest pain, or changes with urination or bowel movements. Past History - Past Medical History Allergies/Adverse Reactions: Allergies Allergy/AdvReac Type Severity Reaction Status Date / Time codeine AdvReac Verified 08/27/18 04:42 Anemia: No Asthma: No Cancer: No Cardiac Disorders: No CVA: No COPD: No CHF: No DVT: No Dementia: No Diabetes: No GI Disorders: No Disorders: No HTN: No Hypercholesterolemia: No Kidney Stones: No Liver Disease: No Psychiatric Problems: Yes (h/o anxiety/depression ) Seizures: No Thyroid Disease: No - Surgical History Abdominal Surgery: No Appendectomy: No Cardiac Surgery: No Cholecystectomy: No Lung Surgery: No Neurologic Surgery: No Orthopedic Surgery: Yes (repair of achillis tendon left at age of 16 years) - Reproductive History Testicular Surgery: No - Immunization History Immunization Up to Date: Yes - Suicide/Smoking/Psychosocial Hx Smoking History: Never smoked Have you smoked in the past 12 months: No Number of Cigarettes Smoked Daily: 2 'Breaking Loose' booklet given: 03/27/18 Hx Alcohol Use: No Drug/Substance Use Hx: No Substance Use Type: Marijuana, Tranquilizers Hx Substance Use Treatment: Yes Review of Systems - Review of Systems Comments:: 08/27/18 06:59 Constitutional: No fevers, chills, fatigue, malaise HEENT: No Rhinorrhea, nasal congestion, visual changes Cardiovascular: No chest pain, syncope, palpitations, lightheadedness Respiratory: No Cough, SOB, Hemoptysis, Gastrointestinal: Epigastric abdominal pain, nausea. No Vomiting, Constipation, Diarrhea, Melena Genitourinary: No Dysuria, Frequency, Urgency, Hesitancy, Hematuria, Flank pain Musculoskeletal: No Myalgia, arthralgia Skin: No rashes, itching, bruising, pallor Neurologic: No Headache, Dizziness, Numbness, Weakness, or Tingling Psychiatric: No Hallucinations. No SI or HI *Physical Exam - Vital Signs Last Vital Signs Temp Pulse Resp BP Pulse Ox 98.6 F 103 H 18 140/87 98 08/27/18 04:43 08/27/18 04:43 08/27/18 04:43 08/27/18 04:43 08/27/18 04:43 - Physical Exam Comments: 08/27/18 06:59 General Appearance: Nourished. No Apparent Distress HEENT: No Pharyngeal Erythema, Tonsillar Exudate, Tonsillar Erythema Neck: No Cervical Lymphadenopathy Respiratory/Chest: Lungs Clear, Normal Breath Sounds. No Crackles, Rales, Rhonchi, Wheezing Cardiovascular: Regular Rhythm, Regular Rate. No Murmur, Gallops, Rubs Gastrointestinal/Abdominal: Normal Bowel Sounds, Soft. No Guarding, Rebound, Tenderness Musculoskeletal: No CVA Tenderness Extremity: Normal Capillary Refill Integumentary: Normal Color, Dry, Warm Neurologic: Fully Oriented, Alert, Normal Mood/Affect, Normal Response, ED Treatment Course - LABORATORY CBC & Chemistry Diagram: 08/27/18 05:12 08/27/18 05:12 Medical Decision Making - Medical Decision Making 08/27/18 07:00 The patient is a 38 year old male with a history of substance abuse who presents for evaluation of abdominal pain and nausea. Given the patient's history and physical exam, we will obtain a cbc, cmp, lipase to evaluate further. We will treat with iv fluids, pepcid, zofran and continue to monitor and reassess while here in the ED.
[2018-08-27] MEDS ORDERED: FAMOTIDINE 20 MG/50 ML IVPB 20 MG/50 ML MG IVPB ONE ×3 (04:56→07:55)
[2018-08-27] MEDS ORDERED: SODIUM CHLORIDE 1,000 ML IV STA (04:56)
[2018-08-27] MEDS ORDERED: ONDANSETRON 4 MG/2 ML VIAL IVPUSH ONE ×2 (04:56→06:27)
[2018-08-27] MEDS ORDERED: ONDANSETRON 4 MG/2 ML VIAL ONE ×2 (05:00→06:33)
[2018-08-27 05:37] LABS: ALBUMIN 4.2 g/dl (3.4-5.0); ALK PHOS 66 U/L (45-117); ANION GAP 7 MMOL/L (8-16); BILIRUBIN,TOTAL 0.2 mg/dL (0.2-1); BLOOD UREA NITROGEN 14 mg/dL (7-18); CALCIUM 9.2 mg/dL (8.5-10.1); CHLORIDE 104 mmol/L (98-107); CO2 32 mmol/L (21-32); GLUCOSE,RANDOM 104 mg/dL (74-106); LIPASE 349 U/L (73-393); POTASSIUM 4.6 mmol/L (3.5-5.1); SGOT/AST 15 U/L (15-37); SGPT/ALT 24 U/L (13-61); SODIUM 143 mmol/L (136-145)
[2018-08-27 06:00] LABS: BASO % 0.5 % (0-2.0); EOS % 0.1 % (0-4.5); HEMATOCRIT 43.5 % (35.4-49); HEMOGLOBIN 13.8 GM/dL (11.7-16.9); LYMPH % 18.1 % (8-40); MCH 26.5 pg (25.7-33.7); MCHC 31.8 g/dl (32.0-35.9); MEAN CELL VOLUME 83.5 fl (80-96); MEAN PLT VOLUME 8.7 fl (7.5-11.1); MONO % 7.6 % (3.8-10.2); NEUT % 73.7 % (42.8-82.8); PLATELET COUNT 360 K/MM3 (134-434); RBC 5.21 M/mm3 (4.00-5.60); RDW 15.1 % (11.9-15.9); WHITE BLOOD COUNT 12.3 K/mm3 (4.0-10.0)
[2018-08-27] MEDS ORDERED: HALOPERIDOL LACTATE 5 MG/ML IM ONE (07:16)
[2018-08-27] MEDS ORDERED: MAG HYDROX/AL HYDROX/SIMETH 30 ML UNIT-DOSE CUP PO ONE (07:43)
--- NOTE | 2018-08-27 07:44 | PDOC ---
*Physical Exam - Vital Signs Last Vital Signs Temp Pulse Resp BP Pulse Ox 98.6 F 103 H 18 140/87 98 08/27/18 04:43 08/27/18 04:43 08/27/18 04:43 08/27/18 04:43 08/27/18 04:43 - Physical Exam General Appearance: Yes: Nourished, Obese HEENT: positive: Normal Voice, Hearing Grossly Normal Neck: positive: Trachea midline, Supple Respiratory/Chest: positive: Lungs Clear, Normal Breath Sounds. negative: Labored Respiration, Rapid RR Cardiovascular: positive: S1, S2. negative: Edema, JVD Gastrointestinal/Abdominal: positive: Normal Bowel Sounds, Soft. negative: Rebound, Tenderness, Hernia, Mass Musculoskeletal: negative: CVA Tenderness (R), CVA Tenderness (L) Neurologic: positive: Fully Oriented, Alert ED Treatment Course - LABORATORY CBC & Chemistry Diagram: 08/27/18 05:12 08/27/18 05:12 - ADDITIONAL ORDERS Additional order review: Laboratory Results 08/27/18 05:12 Sodium 143 Potassium 4.6 Chloride 104 Carbon Dioxide 32 Anion Gap 7 L BUN 14 Creatinine 1.0 Creat Clearance w eGFR > 60 Random Glucose 104 Calcium 9.2 Total Bilirubin 0.2 AST 15 ALT 24 Alkaline Phosphatase 66 Total Protein 8.0 Albumin 4.2 Lipase 349 08/27/18 05:12 RBC 5.21 MCV 83.5 MCHC 31.8 L RDW 15.1 MPV 8.7 Neutrophils % 73.7 Lymphocytes % 18.1 D Monocytes % 7.6 Eosinophils % 0.1 D Basophils % 0.5 - Medications Given in the ED: ED Medications Discontinued Medications Generic Name Dose Route Start Last Admin Trade Name Kendallq PRN Reason Stop Dose Admin Famotidine/Sodium Chloride 20 mg in 50 mls @ 100 mls/hr 08/27/18 04:56 05:37 Pepcid 20 Mg Premixed Ivpb - IVPB 08/27/18 05:25 Not Given ONCE ONE Sodium Chloride 1,000 mls @ 1,000 mls/hr 08/27/18 04:56 08/27/18 05:08 Normal Saline - IV 08/27/18 05:55 1,000 mls/hr ASDIR STA Administration Ondansetron HCl 4 mg 08/27/18 04:56 10/25/18 05:08 Zofran Injection IVPUSH 08/27/18 04:57 4 mg ONCE ONE Administration Ondansetron HCl 4 mg 08/27/18 06:27 08/27/18 06:35 Zofran Injection IVPUSH 08/27/18 06:28 4 mg ONCE ONE Administration Medical Decision Making - Medical Decision Making 08/27/18 07:44 Patient signed out by Dr. Lugo (Resident) and Dr. Rice (Attending) 38 year old male presents to ED c/o nausea and epigastric abdominal pain. VS stable. Abdominal CT negative. Serial belly exams show no TTP. Strong marijuana odor on patient's clothing. Patient assessed @ bedside. Notes 2-3 week h/o post prandial nausea w/o vomiting. States belly pain completely resolved. Soft belly, VS unremarkable. Will give Haldol for presumed Cannabis Emesis as well as GI cocktail. Reassess. 08/27/18 08:50 Patient tolerating PO intake, ambulatory, improved. Will discharge home with return precautions, PMD referral. Patient counseled extensively on importance of establishing primary care and discharged home with return precautions. I discussed the physical exam findings, ancillary test results and final diagnoses with the patient. I answered all of the patient's questions. The patient was satisfied with the care received and felt comfortable with the discharge plan and treatment plan. The patient will return to the Emergency Department with any new, persistent or worsening symptoms. *DC/Admit/Observation/Transfer Diagnosis at time of Disposition: Nausea - Discharge Dispostion Disposition: HOME Condition at time of disposition: Good Decision to Admit order: No - Referrals Referrals: Juan Carlos Zapata MD [Staff Physician] - - Patient Instructions Additional Instructions: You were evaluated today for nausea and abdominal pain. All of your labs showed no concerning findings. At this time you are safe for discharge home. Drink plenty of liquids today and advance your diet slowly over the next few days starting with soft foods. Please make an appointment with primary care (Dr. Benny Rangel) for further evaluation. Return to the ED for any new/worsening/concerning symptoms. - Post Discharge Activity
[2018-08-27] MEDS ORDERED: MAG HYDROX/AL HYDROX/SIMETH 30 ML UNIT-DOSE CUP ONE (07:55)
[2018-08-27] MEDS ORDERED: HALOPERIDOL LACTATE 5 MG/ML ONE (07:55)
[2018-08-27 09:25] VITALS: BP 120/81; PULSE 98; TEMP 98.2
== END 2018-08-27 09:32 | disposition home or self-care (01) ==
LOC: JER 04:22
PROC: 3E023NZ Introduction of Analgesics, Hypnotics, Sedatives into Muscle, Percutaneous Approach (ICD-10-PCS; principal; 2018-08-27)
PROC: 3E033GC Introduction of Other Therapeutic Substance into Peripheral Vein, Percutaneous Approach (ICD-10-PCS; 2018-08-27)
PROC: 3E033GC Introduction of Other Therapeutic Substance into Peripheral Vein, Percutaneous Approach (ICD-10-PCS; 2018-08-27)
PROC: 3E0337Z Introduction of Electrolytic and Water Balance Substance into Peripheral Vein, Percutaneous Approach (ICD-10-PCS; 2018-08-27)
DX: R11.0 Nausea (principal); F12.10 Cannabis abuse, uncomplicated; F13.10 Sedative, hypnotic or anxiolytic abuse, uncomplicated
CPT/HCPCS: 36415; 80053; 83690; 85025; 99281-25; J7030

== ENCOUNTER 2019-05-16 06:28 | Emergency (ER) | payer BC, OTHER ==
[2019-05-16 06:55] VITALS: TEMP 99.5; BMI 31.9
--- NOTE | 2019-05-16 07:38 | PDOC ---
History of Present Illness - General Chief Complaint: Depression Stated Complaint: DEPRESSION Time Seen by Provider: 05/16/19 07:30 - History of Present Illness Initial Comments: 05/16/19 07:35 Mr. Cruz is a 39 yo male w/ pmh of substance abuse and bipolar disorder who presents requesting "psych." Patient denies any HI or SI at this time however reports repeatedly that he "needs help" although he refuses to elucidate further upon interview. Denies any other complaints at this time. The patient denies chest pain, shortness of breath, headache and dizziness. Denies fever, chills, nausea, vomit, diarrhea and constipation. Denies dysuria, frequency, urgency and hematuria. Past History - Past Medical History Allergies/Adverse Reactions: Allergies Allergy/AdvReac Type Severity Reaction Status Date / Time codeine AdvReac Verified 05/16/19 06:53 Anemia: No Asthma: No Cancer: No Cardiac Disorders: No CVA: No COPD: No CHF: No DVT: No Dementia: No Diabetes: No GI Disorders: No Disorders: No HTN: No Hypercholesterolemia: No Kidney Stones: No Liver Disease: No Psychiatric Problems: Yes (h/o anxiety/depression ) Seizures: No Thyroid Disease: No - Surgical History Abdominal Surgery: No Appendectomy: No Cardiac Surgery: No Cholecystectomy: No Lung Surgery: No Neurologic Surgery: No Orthopedic Surgery: Yes (repair of achillis tendon left at age of 16 years) - Reproductive History Testicular Surgery: No - Immunization History Immunization Up to Date: Yes - Suicide/Smoking/Psychosocial Hx Smoking History: Never smoked Have you smoked in the past 12 months: No Number of Cigarettes Smoked Daily: 2 Information on smoking cessation initiated: No 'Breaking Loose' booklet given: 03/27/18 Hx Alcohol Use: No Drug/Substance Use Hx: No Substance Use Type: Marijuana, Tranquilizers Hx Substance Use Treatment: Yes Review of Systems - Review of Systems Comments:: 05/16/19 07:37 GENERAL/CONSTITUTIONAL: No fever or chills. No weakness. HEAD, EYES, EARS, NOSE AND THROAT: No change in vision. No ear pain or discharge. No sore throat. CARDIOVASCULAR: No chest pain or shortness of breath RESPIRATORY: No cough, wheezing, or hemoptysis. GASTROINTESTINAL: No nausea, vomiting, diarrhea or constipation. GENITOURINARY: No dysuria, frequency, or change in urination. MUSCULOSKELETAL: No joint or muscle swelling or pain. No neck or back pain. SKIN: No rash NEUROLOGIC: No headache, vertigo, loss of consciousness, or change in strength/ sensation. ENDOCRINE: No increased thirst. No abnormal weight change HEMATOLOGIC/LYMPHATIC: No anemia, easy bleeding, or history of blood clots. ALLERGIC/IMMUNOLOGIC: No hives or skin allergy *Physical Exam - Vital Signs Last Vital Signs Temp Pulse Resp BP Pulse Ox 99.5 F 97 H 20 129/80 98 05/16/19 06:35 05/16/19 06:35 05/16/19 06:35 05/16/19 06:35 05/16/19 06:35 - Physical Exam Comments: 05/16/19 07:38 GENERAL: Awake, alert, and fully oriented, in no acute distress HEAD: No signs of trauma, normocephalic, atraumatic EYES: PERRLA, EOMI, sclera anicteric, conjunctiva clear ENT: Auricles normal inspection, hearing grossly normal, nares patent, oropharynx clear without exudates. Moist mucosa NECK: Normal ROM, supple, no lymphadenopathy, JVD, or masses LUNGS: No distress, speaks full sentences, clear to auscultation bilaterally HEART: Regular rate and rhythm, normal S1 and S2, no murmurs, rubs or gallops, peripheral pulses normal and equal bilaterally. ABDOMEN: Soft, nontender, normoactive bowel sounds. No guarding, no rebound. No masses EXTREMITIES: Normal inspection, Normal range of motion, no edema. No clubbing or cyanosis. NEUROLOGICAL: Cranial nerves II through XII grossly intact. Normal speech, normal gait, no focal sensorimotor deficits SKIN: Warm, Dry, normal turgor, no rashes or lesions noted. Medical Decision Making - Medical Decision Making 05/16/19 08:44 Mr. Cruz is a 39 yo male w/ pmh as described. Patient upon repeat interview reports he has been having trouble seeing his kids as he has issues with their mother. Patient requests "a program" to "get [his] life together" although he refuses to see social media marketing manager during this visit. Patient became very agitated at one point during repeat interview and security was called. Patient calmed down somewhat and was left to think about goals of his visit. 05/16/19 11:12 Discussed patient with psych who will evaluation. Psych requested utox. Utox sent. 05/16/19 13:14 Patient discussed life stresses w/ psych and admitted to using PCP and marijuana. Reports he would like detox in order to get his life in order. Psych does not believe patient is a danger to self or others at this time and is safe for discharge. Discharging patient to detox facility. *DC/Admit/Observation/Transfer Diagnosis at time of Disposition: Substance abuse - Discharge Dispostion Disposition: HOME - Referrals - Patient Instructions Printed Discharge Instructions: DI for Depression -- Adult Additional Instructions: You were evaluated today in the ER for your symptoms. We contacted the psychiatrists who recommended you attend detox facility. We have arranged for discharge to [facility]. Please follow-up for further evaluation. - Post Discharge Activity Forms/Work/School Notes: My Personal Safety Plan
--- NOTE | 2019-05-16 07:54 | PDOC ---
Attending Attestation - Resident Resident Name: Hu Lau - ED Attending Attestation I have performed the following: I have examined & evaluated the patient, The case was reviewed & discussed with the resident, I agree w/resident's findings & plan, Exceptions are as noted - HPI HPI: 05/16/19 08:53 39y M hx of bipolar disorder presents with deperssion - patient states that he is depressed and he could not see his kids. patient is a difficult historian after an extended amount of time in talking to the patient he finally admits that she needs to get his "certification", before he does that she needs to get his GED. However his "frienemies" are preventing him from doing that. The patient will not elaborate further. Patient denies any active SI or HI. And asked how we can help him today he is asking me to do his job but cannot specify what kind of help he needs. I offered the patient a psychiatricreferral. The patient and the patient becomes irate stating we are playing games. - Physicial Exam PE: General: no acute distress, minimally cooperative HEENT: atraumatic, normocephalic Psych; denies SI/HI, angry Neuro: normal speech, moving all 4 extremities spontaneously and symmetrically, normal gait - Medical Decision Making 05/16/19 14:08 case dw MICHAELA Starkey - pt safe for discharged offered patient detox options also gave pt fu info with MICHAELA Cary
[2019-05-16 11:31] LABS: COCAINE, UR NEGATIVE ng/ml (CUTOFF=300); METHADONE, UR NEGATIVE ng/ml (CUTOFF=300); OPIATES, URI NEGATIVE ng/ml (CUTOFF=300); URINE AMPHETAMINES NEGATIVE ng/ml (CUTOFF=500); URINE BARBITURATES NEGATIVE ng/ml (CUTOFF=200); URINE BENZODIAZEPINES NEGATIVE ng/ml (CUTOFF=200)
[2019-05-16 11:35] LABS: PHENCYCLIDINE,URINE POSITIVE ng/ml (CUTOFF=25)
--- NOTE | 2019-05-16 12:44 | CON.PSY ---
Psychiatry Consult Chief Complaint: Covering for Dr. Diaz. Asked by ER medical staff to see this patient for c/o of Depression History of Present Problem: Patient is well known to [facility] staff having been here frequently x many years for both Medical and Psychiatric issues. He is a 49 year old male with a psychiatric use of some type of psychotic disorder. He says, " I have Schizophrenia!" and a hx of substance abuse disorder manily MJ and PCP. Patient is requesting detox and shelter rehah. He came in to the ER this time stating that he needs help with his depression. Hx of many in patient psychiatric hospitalization for depression and psychtic symptoms Hx of psych. meds- Risperdal No hx of suicidl attempts but admits to wishing to sometimes. HX of multiple admisison to detoxification facility. He as a long hx of drug use and reports many psychosocial issues- lost custodyof his cildren when he went to long term , some years ago, tried to stop using MJ/PCP but can'.t Symptoms: reports: Depressed Mood, Sleep Disturbance (yes history of substancae abuse/ and admissons to detox centers) - Reason for Previous Treatment Reason for Previous Treatment: Major Depression, Psychotic Episode (Medical records seen), Drug Abuse - Family History Family History: Unable to Obtain - Allergies Allergies: Allergies Allergy/AdvReac Type Severity Reaction Status Date / Time codeine AdvReac Verified 05/16/19 06:53 - Current Living Status Usual Living Arrangement: Other (with friends on and off) - Current Mental Status Evaluation Appearance: Other (Appropriate for setting and circumstance) Attitude: Cooperative - Affect Appropriateness: Appropriate to Content - Mood Mood: Depressed - Speech/Language Expressive: Soft Assessment/Plan Patient is depressed, maybe coming down from the;'high' of PCP He not psychotic at this itme He has a low risk for suicide at this ti me Very determined to change his life, study for his GED and to stop using illlicit drugs Rec Substance abuse/detox consult He is willing to go to our Detox facility at [place] His home meds is Risperdal- not sure of the dose Can start either haldol or risperdal whatever is formulary, if he becomes psychotic or irritable duing his stay' he was advised
[2019-05-16 13:43] VITALS: BP 133/86; PULSE 82
== END 2019-05-16 13:43 | disposition home or self-care (01) ==
LOC: JER 06:28
DX: F19.10 Other psychoactive substance abuse, uncomplicated (principal); F31.9 Bipolar disorder, unspecified; F41.8 Other specified anxiety disorders; F32.9 Major depressive disorder, single episode, unspecified
CPT/HCPCS: 80307; 99281-25

== ENCOUNTER 2019-06-04 08:21 | Inpatient (IN) | payer OTHER ==
[2019-06-04 08:45] VITALS: BP 142/85; PULSE 96; TEMP 98.6
[2019-06-04 09:00] VITALS: BMI 39.6
--- NOTE | 2019-06-04 09:39 | HP ---
CIWA Score Nausea/Vomitin-No Nausea/No Vomiting Muscle Tremors: 1-None Visible, but [place] Anxiety: 1-Mildly Anxious Agitation: 2 Paroxysmal Sweats: No Perspiration Orientation: 0-Oriented Tacttile Disturbances: 1-Very Mild Itch/Numbness Auditory Disturbances: 0-None Visual Disturbances: 0-None Headache: 1-Very Mild CIWA-Ar Total Score: 6 - Admission Criteria OASAS Guidelines: Admission for Medically Managed Detox: Requires at least one of the followin. CIWA greater than 12 2. Seizures within the past 24 hours 3. Delirium tremens within the past 24 hours 4. Hallucinations within the past 24 hours 5. Acute intervention needed for co occurring medical disorder 6. Acute intervention needed for co occurring psychiatric disorder 7. Severe withdrawal that cannot be handled at a lower level of care (continued vomiting, continued diarrhea, abnormal vital signs) requiring intravenous medication and/or fluids 8. Admission ROS [facility] - HPI Chief Complaint: i need help to go to rehab from alcohol,pcp,and marijuana Allergies/Adverse Reactions: Allergies Allergy/AdvReac Type Severity Reaction Status Date / Time codeine AdvReac Verified 06/04/19 08:36 History of Present Illness: this 39 years old male with alcohol,pcp,marijuana dependence seeking help to go to rehab denied seizure denied black out denied smoking history of schizophrenia,non compliance stated need help for alcohol,drug - Ebola screening Have you traveled outside of the country in the last 21 days: No Have you had contact with anyone from an Ebola affected area: No Do you have a fever: No - Review of Systems Constitutional: No Symptoms Reported EENT: reports: No Symptoms Reported Respiratory: reports: No Symptoms reported Cardiac: reports: No Symptoms Reported GI: reports: No Symptoms Reported : reports: No Symptoms Reported Integumentary: reports: No Symptoms Reported Neuro: reports: No Symptoms reported Endocrine: reports: No Symptoms Reported Hematology: reports: No Symptoms Reported Psychiatric: reports: No Sypmtoms Reported, Judgement Intact, Mood/Affect Appropiate, Orientated x3, other (schizophrenia) Patient History - Patient Medical History Hx Anemia: No Hx Asthma: No Hx Chronic Obstructive Pulmonary Disease (COPD): No Hx Cancer: No Hx Cardiac Disorders: No Hx Congestive Heart Failure: No Hx Hypertension: No Hx Hypercholesterolemia: No Hx Pacemaker: No HX Cerebrovascular Accident: No Hx Seizures: No Hx Dementia: No Hx Diabetes: No Hx Gastrointestinal Disorders: No Hx Liver Disease: No Hx Genitourinary Disorders: No Hx Sexually Transmitted Disorders: No Hx Renal Disease (ESRD): No Hx Thyroid Disease: No Hx Human Immunodeficiency Virus (HIV): No (2018 negative) Hx Hepatitis C: No Hx Depression: Yes Hx Suicide Attempt: Yes (overdose 01/18 ) Hx Bipolar Disorder: No Hx Schizophrenia: Yes (no med) Other Medical History: no suicidal,no homicidal - Patient Surgical History Past Surgical History: No Hx Neurologic Surgery: No Hx Cataract Extraction: No Hx Cardiac Surgery: No Hx Lung Surgery: No Hx Breast Surgery: No Hx Breast Biopsy: No Hx Abdominal Surgery: No Hx Appendectomy: No Hx Cholecystectomy: No Hx Genitourinary Surgery: No Hx Section: No Hx Orthopedic Surgery: Yes (repair of achillis tendon left at age of 16 years) Anesthesia Reaction: No - PPD History Previous Implant?: Yes Documented Results: Negative w/proof Implanted On Prior [facility] Admission?: Yes Date: 06/13/17 Results: 0 mm PPD to be Administered?: No - Smoking Cessation Smoking history: Never smoked Have you smoked in the past 12 months: No Hx Chewing Tobacco Use: No - Substance & Tx. History Hx Alcohol Use: Yes Hx Substance Use: Yes Substance Use Type: Alcohol, Marijuana Hx Substance Use Treatment: Yes (LOCATED WITHIN [facility] 03/27/18 to 04/06/18) - Substances abused Alcohol Substance route: Oral Frequency: Daily Amount used: 1-2 pints of kenzie Age of first use: 17 Date of last use: 06/03/19 Marijuana/Hashish Substance route: Smoking Frequency: Daily Amount used: 2 blunt Age of first use: 18 Date of last use: 06/03/19 PCP Substance route: Smoking Frequency: Daily Amount used: 1-2 dime/day Age of first use: 19 Date of last use: 06/03/19 Family Disease History - Family Disease History Family History: Denies Admission Physical Exam B[facility] - Vital Signs Vital Signs: Vital Signs - 24 hr 06/04/19 06/04/19 08:35 09:00 Temperature 98.6 F 98.6 F Pulse Rate 96 H 96 H Respiratory 18 18 Rate Blood Pressure 142/85 142/85 - Physical General Appearance: Yes: Within Normal Limits HEENTM: Yes: Normal ENT Inspection, LEILA, Pharynx Normal Respiratory: Yes: Lungs Clear, Normal Breath Sounds, No Respiratory Distress Neck: Yes: Within Normal Limits, Supple, Trachea in good position Breast: Yes: Within Normal Limits Cardiology: Yes: Within Normal Limits, Regular Rhythm, Regular Rate, S1, S2 Abdominal: Yes: Within Normal Limits, Normal Bowel Sounds, Non Tender, Flat, Soft Genitourinary: Yes: Within Normal Limits Back: Yes: Within Normal Limits Musculoskeletal: Yes: Within Normal Limits Extremities: Yes: Within Normal Limits Neurological: Yes: 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 intact, Fully Oriented, Alert, Motor Strength 5/5 Integumentary: Yes: Within Normal Limits Lymphatic: Yes: Within Normal Limits - Diagnostic (1) Alcohol dependence Current Visit: Yes Status: Acute (2) Cannabis dependence Current Visit: No Status: Acute (3) Cannabis dependence Current Visit: Yes Status: Acute (4) Schizophrenia Current Visit: Yes Status: Acute Cleared for Admission [facility] - Detox or Rehab Claeared for Rehab Admission: Yes Breathalyzer - Breathalyzer Breathalyzer: 0 Urine Drug Screen - Test Device Lot number: [id number] Expiration date: 03/02/21 - Control Is test valid?: Yes - Results Drug screen NEGATIVE: No Urine drug screen results: THC-Marijuana, MET-Methamphetamine, MTD-Methadone Inpatient Rehab Admission - Rehab Decision to Admit Inpatient rehab admission?: Yes - Initial Determination Are CD services needed?: Yes Free of communicable disease: Yes Not in need of hospitalization: Yes - Rehab Admission Criteria Previous failed treatment: Yes Poor recovery environment: Yes Comorbidities: Yes Lacks judgement: No Patient is meeting Inpatient Rehab admission criteria:: Yes
[2019-06-04] MEDS ORDERED: MAGNESIUM CITRATE 300 ML BOTTLE PO PRN (09:55)
[2019-06-04] MEDS ORDERED: MAGNESIUM HYDROX 2400MG/30ML ORAL SUSPENSION 30 ML CUP PO PRN (09:55)
[2019-06-04] MEDS ORDERED: guaiFENesin 200 MG/10 ML 10 ML UNIT-DOSE CUPS PO PRN (09:55)
[2019-06-04] MEDS ORDERED: ACETAMINOPHEN 325 MG TABLET (FP) PO PRN (09:55)
[2019-06-04] MEDS ORDERED: MENTHOL/PHENOL 1 EACH UD MM PRN (09:55)
[2019-06-04] MEDS ORDERED: IBUPROFEN 400 MG TABLET (FP) PO PRN (09:55)
[2019-06-04] MEDS ORDERED: LOPERAMIDE HCL 2 MG CAPSULE PO PRN (09:55)
[2019-06-04] MEDS ORDERED: hydrOXYzine PAMOATE 50 MG CAPSULE (FP) PO PRN (09:55)
[2019-06-04] MEDS ORDERED: MAG HYDROX/AL HYDROX/SIMETH 30 ML UNIT-DOSE CUP PO PRN (09:55)
[2019-06-04] MEDS ORDERED: P-EPHED 60MG/TRIPROLIDI 2.5MG TABLET PO PRN (09:55)
[2019-06-04] MEDS ORDERED: PRENATAL VITAMINS W/ FOLIC ACID TABLET (FP) PO SCH (10:00)
[2019-06-04 11:52] LABS: HEMATOCRIT 38.4 % (35.4-49); HEMOGLOBIN 12.5 GM/dL (11.7-16.9); MCH 26.9 pg (25.7-33.7); MCHC 32.6 g/dl (32.0-35.9); MEAN CELL VOLUME 82.6 fl (80-96); MEAN PLT VOLUME 8.4 fl (7.5-11.1); RBC 4.65 M/mm3 (4.00-5.60); RDW 14.4 % (11.9-15.9); WHITE BLOOD COUNT 11.3 K/mm3 (4.0-10.0)
[2019-06-04 12:06] LABS: ALBUMIN 4.1 g/dl (3.4-5.0); BILIRUBIN,TOTAL 0.4 mg/dL (0.2-1); BLOOD UREA NITROGEN 23.5 mg/dL (7-18); CALCIUM 8.9 mg/dL (8.5-10.1); CREATININE 1.2 mg/dL (0.55-1.3); TOT PROT 7.6 g/dl (6.4-8.2)
[2019-06-04 12:16] LABS: PLATELET COUNT 351 K/MM3 (134-434)
--- NOTE | 2019-06-04 15:40 | CONSULT ---
[facility] Psychiatric Consult - Data Date of interview: 06/04/19 Admission source: [facility] Identifying data: Patient is a 39 year old male, father of five, unemployed, domiciled, and is not supported by financial assistance. This is one of multiple admissions for patient. Patient admitted to for alcohol, marijuana, and methamphetamine dependence. Substance Abuse History: Smoking Cessation. Smoking history: Never smoked. Have you smoked in the past 12 months: No. Hx Chewing Tobacco Use: No. - Substance & Tx. History. Hx Alcohol Use: Yes. Hx Substance Use: Yes. Substance Use Type: Alcohol, Marijuana. Hx Substance Use Treatment: Yes ([facility] 04/06/18). - Substances abused. Alcohol. Substance route: Oral. Frequency: Daily. Amount used: 1-2 pints of kenzie. Age of first use: 17. Date of last use: 06/03/19. Marijuana/Hashish. Substance route: Smoking. Frequency: Daily. Amount used: 2 blunt. Age of first use: 18. Date of last use: 06/03/19. PCP. Substance route: Smoking. Frequency: Daily. Amount used: 1-2 dime/day. Age of first use: 19. Date of last use: 06/03/19 Medical History: repair of achillis tendon left at age of 16 years Psychiatric History: Patient reports history of multiple psychiatric hospitalizations but is unable to recall the names of hospitals and dates of hospitalizations (previous notes mention hospitalizations at [facility]). Reports history of depression. Reports unable to recall which medication he has accepted but as per previous records patient has accepted risperdal and zoloft in the past. Patient then asked if he has taken risperdal in the past and he responded " yes but i do not remember when i took it". Patient reports history of auditory hallucinations, most recently last year. Denies psychotic symptoms at this time. Only states that he is depressed. At present, patient presents as guarded, with a sad/depressed affect, and is unable to elaborate on psychiatric history. Patient denies h/o suicide attempt and denies thoughts or urges to hurt self or others. Patient unable to engage fully with writer producer and noted to become frustrated with questions asked but able to stay in control. As per previous notes patient reported history of PTSD and schizoaffective disorder. Patient in agreement in accepting risperdal 1mg HS. Physical/Sexual Abuse/Trauma History: denies. Mental Status Exam - Mental Status Exam Alert and Oriented to: Time, Place, Person Cognitive Function: Good Patient Appearance: Well Groomed Mood: Withdrawn, Irritable Affect: Mood Congruent Patient Behavior: Guarded, Suspicious Speech Pattern: Delayed Voice Loudness: Moderately Soft/Quiet Thought Process: Goal Oriented Thought Disorder: Not Present Hallucinations: Denies Suicidal Ideation: Denies Homicidal Ideation: Denies Insight/Judgement: Poor Sleep: Fair Appetite: Fair Muscle strength/Tone: Normal Gait/Station: Normal Psychiatric Findings - Problem List ([place] 1, 2,3) (1) Methamphetamine dependence Current Visit: Yes Status: Acute (2) Alcohol dependence Current Visit: Yes Status: Acute (3) Cannabis dependence Current Visit: Yes Status: Acute (4) Mood disorder Current Visit: Yes Status: Chronic (5) Schizoaffective disorder Current Visit: Yes Status: Suspected - Initial Treatment Plan Initial Treatment Plan: Psychoeducation provided. Rehab in progress. Will order Risperdal 1mg HS. Benefits and side effects discussed. Patient refusing to accept additional medications and higher dose of risperdal at this time.
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
[2019-06-04] MEDS ORDERED: MELATONIN 5 MG TABLETS PO PRN (22:00)
[2019-06-04] MEDS ORDERED: risperiDONE 1 MG TABLET (FP) PO SCH (22:00)
[2019-06-04] MEDS ORDERED: THIAMINE HCL 100 MG TABLET (FP) PO SCH (22:00)
== END 2019-06-04 19:00 | disposition home or self-care (01) | DRG 772 ==
LOC: YASAS 08:21 → Y5N 11:41
PROVIDERS: ADMIT Neuromusculoskeletal Medicine & OMM; ATTEND Neuromusculoskeletal Medicine & OMM
PROC: HZ42ZZZ Group Counseling for Substance Abuse Treatment, Cognitive-Behavioral (ICD-10-PCS; principal; 2019-06-04)
DX: F10.20 Alcohol dependence, uncomplicated (principal); F15.20 Other stimulant dependence, uncomplicated; F12.20 Cannabis dependence, uncomplicated; F39 Unspecified mood [affective] disorder; F25.9 Schizoaffective disorder, unspecified
CPT/HCPCS: 36415; 80053; 85027; 86593

== ENCOUNTER 2019-06-07 13:12 | Emergency (ER) | payer OTHER ==
--- NOTE | 2019-06-07 13:20 | PDOC ---
Rapid Medical Evaluation Medical Evaluation: Allergies Allergy/AdvReac Type Severity Reaction Status Date / Time codeine AdvReac Verified 06/04/19 08:36 I have performed a brief in-person evaluation of this patient. The patient presents with a chief complaint of: hx of psych presents c/o dizziness (states feels like lightheaded and vertigo); sxs started today; denies n/v/d, fever, sob, cp, urinary complaints Pertinent physical exam findings: In NAD, ambulatory I have ordered the following: Labs, EKG The patient will proceed to the ED for further evaluation. 06/07/19 13:18
[2019-06-07 13:28] VITALS: BP 119/82; PULSE 104; TEMP 98.4; BMI 31.9
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
[2019-06-07 16:30] LABS: BASO % 0.5 % (0-2.0); HEMATOCRIT 38.8 % (35.4-49); HEMOGLOBIN 12.7 GM/dL (11.7-16.9); LYMPH % 23.5 % (8-40); MCH 27.1 pg (25.7-33.7); MCHC 32.8 g/dl (32.0-35.9); MEAN CELL VOLUME 82.7 fl (80-96); MEAN PLT VOLUME 8.3 fl (7.5-11.1); MONO % 8.9 % (3.8-10.2); NEUT % 65.1 % (42.8-82.8); PLATELET COUNT 353 K/MM3 (134-434); RBC 4.69 M/mm3 (4.00-5.60); RDW 14.3 % (11.9-15.9); WHITE BLOOD COUNT 10.2 K/mm3 (4.0-10.0)
[2019-06-07 17:02] LABS: ALBUMIN 3.8 g/dl (3.4-5.0); BILIRUBIN,TOTAL 0.4 mg/dL (0.2-1); BLOOD UREA NITROGEN 19.3 mg/dL (7-18); CALCIUM 8.7 mg/dL (8.5-10.1); CREATININE 1.2 mg/dL (0.55-1.3); POTASSIUM 3.8 mmol/L (3.5-5.1); TOT PROT 7.2 g/dl (6.4-8.2)
[2019-06-07 17:37] LABS: COCAINE, UR NEGATIVE ng/ml (CUTOFF=300); METHADONE, UR NEGATIVE ng/ml (CUTOFF=300); OPIATES, URI NEGATIVE ng/ml (CUTOFF=300); URINE AMPHETAMINES NEGATIVE ng/ml (CUTOFF=500); URINE BARBITURATES NEGATIVE ng/ml (CUTOFF=200); URINE BENZODIAZEPINES NEGATIVE ng/ml (CUTOFF=200)
[2019-06-07 17:46] LABS: PHENCYCLIDINE,URINE POSITIVE ng/ml (CUTOFF=25)
[2019-06-07 18:41] LABS: MAGNESIUM 2.5 mg/dL (1.8-2.4)
--- NOTE | 2019-06-07 19:27 | PDOC ---
*Physical Exam - Vital Signs Last Vital Signs Temp Pulse Resp BP Pulse Ox 98.4 F 104 H 16 119/82 99 06/07/19 13:23 06/07/19 13:23 06/07/19 13:23 06/07/19 13:23 06/07/19 13:23 ED Treatment Course - LABORATORY CBC & Chemistry Diagram: 06/07/19 16:16 06/07/19 16:16 - ADDITIONAL ORDERS Additional order review: Laboratory Results 06/07/19 06/07/19 06/07/19 16:21 16:16 16:16 Sodium 141 Potassium 3.8 Chloride 108 H Carbon Dioxide 28 Anion Gap 5 L BUN 19.3 H Creatinine 1.2 Est GFR (CKD-EPI)AfAm 88.37 Est GFR (CKD-EPI)NonAf 76.25 Random Glucose 89 Calcium 8.7 Magnesium 2.5 H Total Bilirubin 0.4 AST 38 H ALT 42 Alkaline Phosphatase 73 Troponin I < 0.02 Total Protein 7.2 Albumin 3.8 Opiates Screen Negative Methadone Screen Negative Barbiturate Screen Negative Phencyclidine Screen Positive A* Ur Amphetamines Screen Negative MDMA (Ecstasy) Screen Negative Benzodiazepines Screen Negative Cocaine Screen Negative U Marijuana (THC) Screen Positive A* 06/07/19 16:16 RBC 4.69 MCV 82.7 MCHC 32.8 RDW 14.3 MPV 8.3 Neutrophils % 65.1 Lymphocytes % 23.5 D Monocytes % 8.9 Eosinophils % 2.0 D Basophils % 0.5 Medical Decision Making - Medical Decision Making 06/07/19 19:47 Patient alert awake. seen by Dr. Diaz. Cleared for d/c by psychiatry/ patient walked out prior to d/c papers *DC/Admit/Observation/Transfer Diagnosis at time of Disposition: PCP abuse, Substance abuse, Feeling angry - Discharge Dispostion Disposition: HOME - Referrals - Patient Instructions Printed Discharge Instructions: Getting Treatment for Drug Addiction - Post Discharge Activity
--- NOTE | 2019-06-07 19:45 | CON.PSY ---
Psychiatry Consult Chief Complaint: I went to [facility] and they discharged me. patient known to me from previous visits here. ? Depressiuon and substance abuse non vcompliant with treatment. - Previous Psychiatric Treatment Outpatient: Less than 6 mos ago - Reason for Previous Treatment Reason for Previous Treatment: Drug Abuse - Allergies Allergies: Allergies Allergy/AdvReac Type Severity Reaction Status Date / Time codeine AdvReac Verified 06/04/19 08:36 - Current Living Status Usual Living Arrangement: Alone - Current Mental Status Evaluation Appearance: Well Groomed Attitude: Cooperative - Affect Affect: Constrictive Appropriateness: Appropriate to Content - Mood Mood: Irritable - Speech/Language Expressive: Coherent - Psychomotor Activity Psychomotor Activity: Normal - Thought Process Thought Process: Intact - Self Perception Self Perception: No Impairment - Cognition Attention: Alert, Diminished Orientation: Time Memory, Immediate Recall: Intact Memory, Short Term: 3/3 Memory, Remote with Promptin/3 - Concentration Serial Sevens Intact: Yes Simple Calculations Intact: Yes - Abstraction Proverb Interpretation: Intact Judgement: Minimally Impaired - Impulse Control Impulse Control: Minimally Impaired - Suicidal Ideation Suicidal Ideation: No - Homicidal Ideation Homicidal Ideation: No Problem List - Problems (1) 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 2) N ot suicidal or Homicidal. 3) [facility]
== END 2019-06-07 19:58 | disposition home or self-care (01) ==
LOC: JER 13:12
DX: F16.10 Hallucinogen abuse, uncomplicated (principal); R45.4 Irritability and anger; F12.10 Cannabis abuse, uncomplicated; F41.8 Other specified anxiety disorders; F32.9 Major depressive disorder, single episode, unspecified
CPT/HCPCS: 36415; 80053; 80307; 83735; 84484; 85025; 99282-25

== ENCOUNTER 2019-08-03 03:40 | Emergency (ER) | payer OTHER ==
[2019-08-03 04:06] VITALS: BP 115/55; PULSE 108; TEMP 99.1; BMI 34.8
--- NOTE | 2019-08-03 07:20 | PDOC ---
History of Present Illness - General Chief Complaint: Lightheaded Stated Complaint: DIZZINESS Time Seen by Provider: 08/03/19 07:13 History Source: Patient - History of Present Illness Timing/Duration: reports: other (this am) Past History - Past Medical History Allergies/Adverse Reactions: Allergies Allergy/AdvReac Type Severity Reaction Status Date / Time No Known Allergies Allergy Verified 08/03/19 04:06 Home Medications: Ambulatory Orders Diphenhydramine [Benadryl -] 50 mg PO HS 06/04/19 Risperidone [Risperdal] 2 mg PO DAILY 06/04/19 Anemia: No Asthma: No Cancer: No Cardiac Disorders: No CVA: No COPD: No CHF: No DVT: No Dementia: No Diabetes: No GI Disorders: No Disorders: No HTN: No Hypercholesterolemia: No Kidney Stones: No Liver Disease: No Psychiatric Problems: Yes (h/o anxiety/depression ) Seizures: No Thyroid Disease: No - Surgical History Abdominal Surgery: No Appendectomy: No Cardiac Surgery: No Cholecystectomy: No Lung Surgery: No Neurologic Surgery: No Orthopedic Surgery: Yes (repair of achillis tendon left at age of 16 years) - Reproductive History Testicular Surgery: No - Immunization History Immunization Up to Date: Yes - Psycho Social/Smoking Cessation Hx Smoking History: Never smoked Have you smoked in the past 12 months: No Number of Cigarettes Smoked Daily: 2 'Breaking Loose' booklet given: 03/27/18 Hx Alcohol Use: No Drug/Substance Use Hx: Yes (thc, pcp) Substance Use Type: Alcohol, Marijuana Hx Substance Use Treatment: Yes Review of Systems - Review of Systems Constitutional: No: Chills, Fever Respiratory: No: Shortness of Breath Cardiac (ROS): Yes: Lightheadedness. No: Chest Pain, Palpitations, Syncope ABD/GI: No: Nausea, Vomiting Neurological: Yes: Dizziness. No: Headache, Numbness, Weakness *Physical Exam - Vital Signs Last Vital Signs Temp Pulse Resp BP Pulse Ox 99.1 F 108 H 18 115/55 L 96 08/03/19 04:03 08/03/19 04:03 08/03/19 04:03 08/03/19 04:03 08/03/19 04:03 - Physical Exam General Appearance: Yes: Appropriately Dressed. No: Apparent Distress HEENT: positive: Normal Voice Neck: positive: Supple Respiratory/Chest: positive: Lungs Clear, Normal Breath Sounds. negative: Respiratory Distress Cardiovascular: positive: Regular Rate, S1, S2 Gastrointestinal/Abdominal: positive: Soft. negative: Tender Integumentary: positive: Dry, Warm Neurologic: positive: Fully Oriented, Alert, Other (odd affect) Medical Decision Making - Medical Decision Making 08/03/19 07:15 39 yo M, h/o schizophrenia, non-compliant with meds, polysubstance abuse, here with dizziness. Patient states while walking around for several hours with his friends this am, he started feeling pins and needles in his head, became dizzy and felt like passing out but denies any syncope. States sxs since improved. No vertigo, visual changes, nausea, vomiting, focal weakness, chest pain or shortness of breath. No history of similar event. Patient denies any drug use this a.m. See exam Dizziness Since improved No focal neuro sxs No CP or SOB Tachy to 108, exam otherwise unremarkable -will check ekg/basic labs and utox given above hx 08/03/19 07:29 Pt refuses EKG and blood work. States "I don't need any of that, just give me some IV fluids". I had lengthy discussion with patient informing him that we need to do a workup to rule out any medical cause of his symptoms, but patient continues to refuse. At some point, patient walked out of the examination room and continued out of the ED. ED attg made aware Discharge - Discharge Information Problems reviewed: Yes Clinical Impression/Diagnosis: Dizziness Disposition: ELOPED - Follow up/Referral - Patient Discharge Instructions - Post Discharge Activity
== END 2019-08-03 07:30 | disposition home or self-care (01) ==
LOC: JER 03:40
DX: R42 Dizziness and giddiness (principal); F41.8 Other specified anxiety disorders; F32.9 Major depressive disorder, single episode, unspecified; F20.9 Schizophrenia, unspecified
CPT/HCPCS: 99281-25

== ENCOUNTER 2019-11-06 17:34 | Inpatient (IN) | payer OTHER ==
[2019-11-06 19:00] VITALS: BMI 33.9
--- NOTE | 2019-11-06 22:25 | HP ---
CIWA Score Nausea/Vomitin Muscle Tremors: 2 Anxiety: 2 Agitation: 2 Paroxysmal Sweats: 2 Orientation: 0-Oriented Tacttile Disturbances: 2-Mild Itch/Numbness/Burn Auditory Disturbances: 2-Mild Harshness/Frighten Visual Disturbances: 2-Mild Sensitivity Headache: 2-Mild CIWA-Ar Total Score: 18 - Admission Criteria OASAS Guidelines: Admission for Medically Managed Detox: Requires at least one of the followin. CIWA greater than 12 2. Seizures within the past 24 hours 3. Delirium tremens within the past 24 hours 4. Hallucinations within the past 24 hours 5. Acute intervention needed for co occurring medical disorder 6. Acute intervention needed for co occurring psychiatric disorder 7. Severe withdrawal that cannot be handled at a lower level of care (continued vomiting, continued diarrhea, abnormal vital signs) requiring intravenous medication and/or fluids 8. Admitting History and Physical - Smoking History Smoking history: Never smoked Have you smoked in the past 12 months: No Aproximately how many cigarettes per day: 2 - Alcohol/Substance Use Hx Alcohol Use: No Admission ROS BHS - HPI Chief Complaint: DEPENDENT ON ETOH, MARIJUANA AND PCP Allergies/Adverse Reactions: Allergies Allergy/AdvReac Type Severity Reaction Status Date / Time No Known Allergies Allergy Verified 11/06/19 18:48 History of Present Illness: THE PT. IS REQUESTING ADMISSION TO THE DETOX UNIT AND CAME FOR MEDICAL CLEARANCE Exam Limitations: No Limitations - Ebola screening Have you traveled outside of the country in the last 21 days: No (N) Have you had contact with anyone from an Ebola affected area: No Have you been sick,other than usual withdrawal symptoms: No Do you have a fever: No - Review of Systems Constitutional: See HPI, Malaise, Weakness EENT: reports: See HPI Respiratory: reports: See HPI Cardiac: reports: See HPI GI: reports: See HPI, Nausea, Abdominal cramping : reports: No Symptoms Reported, See HPI Musculoskeletal: reports: See HPI, Muscle Pain, Muscle Weakness Integumentary: reports: See HPI Neuro: reports: See HPI, Headache, Tremors, Weakness Endocrine: reports: See HPI Hematology: reports: See HPI Psychiatric: reports: Judgement Intact, Orientated x3, Depressed Patient History - Patient Medical History Hx Anemia: No Hx Asthma: No Hx Chronic Obstructive Pulmonary Disease (COPD): No Hx Cancer: No Hx Cardiac Disorders: No Hx Congestive Heart Failure: No Hx Hypertension: No Hx Hypercholesterolemia: No Hx Pacemaker: No HX Cerebrovascular Accident: No Hx Seizures: No Hx Dementia: No Hx Diabetes: No Hx Gastrointestinal Disorders: No Hx Liver Disease: No Hx Genitourinary Disorders: No Hx Sexually Transmitted Disorders: No Hx Renal Disease (ESRD): No Hx Thyroid Disease: No Hx Human Immunodeficiency Virus (HIV): No (2018 negative) Hx Hepatitis C: No Hx Depression: No Hx Suicide Attempt: No Hx Bipolar Disorder: No Hx Schizophrenia: Yes - Patient Surgical History Past Surgical History: No Hx Neurologic Surgery: No Hx Cataract Extraction: No Hx Cardiac Surgery: No Hx Lung Surgery: No Hx Breast Surgery: No Hx Breast Biopsy: No Hx Abdominal Surgery: No Hx Appendectomy: No Hx Cholecystectomy: No Hx Genitourinary Surgery: No Hx Section: No Hx Orthopedic Surgery: Yes (repair of achillis tendon left at age of 16 years) Anesthesia Reaction: No - PPD History Date: 06/13/17 Results: 0 mm - Smoking Cessation Smoking history: Never smoked Have you smoked in the past 12 months: No Hx Chewing Tobacco Use: No Initiated information on smoking cessation: No 'Breaking Loose' booklet given: 11/06/19 - Substance & Tx. History Hx Alcohol Use: Yes Hx Substance Use: Yes Substance Use Type: Alcohol, Marijuana Hx Substance Use Treatment: No - Substances abused Alcohol Substance route: Oral Frequency: Daily Amount used: 1-2 pints of kenzie Age of first use: 17 Date of last use: 06/03/19 Marijuana/Hashish Substance route: Smoking Frequency: Daily Amount used: 2 blunts Age of first use: 18 Date of last use: 11/05/19 PCP Substance route: Smoking Frequency: 1-2 times per week Amount used: 1-2 dime/day Age of first use: 19 Date of last use: 11/05/19 Admission Physical Exam BHS - Vital Signs Vital Signs: Vital Signs - 24 hr 11/06/19 18:44 Temperature 99.1 F Pulse Rate 75 Respiratory 20 Rate Blood Pressure 145/99 - Physical General Appearance: Yes: Appropriately Dressed, Obese, Tremorous, Sweating, Anxious HEENTM: Yes: Hearing grossly Normal, Normocephalic, Normal Voice, LEILA, Pharynx Normal Respiratory: Yes: Chest Non-Tender, Lungs Clear, Normal Breath Sounds, No Respiratory Distress, No Accessory Muscle Use Neck: Yes: No masses,lesions,Nodules, Supple, Trachea in good position Breast: Yes: Breast Exam Deferred, Axillae without masses Cardiology: Yes: Regular Rhythm, Regular Rate, S1, S2 Abdominal: Yes: Normal Bowel Sounds, Non Tender, Soft, Protuberent Back: Yes: Normal Inspection Musculoskeletal: Yes: full range of Motion, Gait Steady, Pelvis Stable, Muscle Pain, Muscle weakness Extremities: Yes: Normal Capillary Refill, Normal Range of Motion, Non-Tender, Tremors, Swelling Neurological: Yes: php engineer II-XII NML intact, Fully Oriented, Alert, Motor Strength 5/5, Depressed Affect Integumentary: Yes: Normal Color, Warm, Moist Lymphatic: Yes: Within Normal Limits - Diagnostic (1) Alcohol dependence Current Visit: No Status: Chronic Qualifiers: Substance use status: uncomplicated Qualified Code(s): F10.20 - Alcohol dependence, uncomplicated (2) Cannabis dependence Current Visit: No Status: Chronic (3) PCP dependence Current Visit: No Status: Chronic Comment: . (4) Schizophrenia Current Visit: No Status: Acute Qualifiers: Schizophrenia type: unspecified Qualified Code(s): F20.9 - Schizophrenia, unspecified Cleared for Admission BHS - Detox or Rehab S Level of Care: Medically Supervised Detox Regimen/Protocol: Librium Breathalyzer - Breathalyzer Breathalyzer: 0 Urine Drug Screen - Test Device Lot number: [id number] Expiration date: 08/02/21 - Control Is test valid?: Yes - Results Drug screen NEGATIVE: No Urine drug screen results: THC-Marijuana Inpatient Rehab Admission - Rehab Decision to Admit Inpatient rehab admission?: No
[2019-11-06] MEDS ORDERED: MAGNESIUM HYDROX 2400MG/30ML ORAL SUSPENSION 30 ML CUP PO PRN (22:29)
[2019-11-06] MEDS ORDERED: METHOCARBAMOL 500 MG TABLET PO PRN (22:29)
[2019-11-06] MEDS ORDERED: hydrOXYzine PAMOATE 25 MG CAPSULE (FP) PO PRN (22:29)
[2019-11-06] MEDS ORDERED: BISMUTH SUBSALICYLATE 524 MG/30 ML UD PO PRN (22:29)
[2019-11-06] MEDS ORDERED: MENTHOL/PHENOL 1 EACH UD MM PRN (22:29)
[2019-11-06] MEDS ORDERED: IBUPROFEN 400 MG TABLET (FP) PO PRN (22:29)
[2019-11-06] MEDS ORDERED: NICOTINE POLACRILEX 2 MG GUM BUC PRN (22:29)
[2019-11-06] MEDS ORDERED: MAG HYDROX/AL HYDROX/SIMETH 30 ML UNIT-DOSE CUP PO PRN (22:29)
[2019-11-06] MEDS ORDERED: chlordiazePOXIDE HCL 25 MG CAPSULE PO PRN (22:29)
[2019-11-06] MEDS ORDERED: MAGNESIUM CITRATE 300 ML BOTTLE PO PRN (22:29)
[2019-11-06] MEDS ORDERED: MELATONIN 5 MG TABLETS PO PRN (22:29)
[2019-11-06] MEDS ORDERED: ACETAMINOPHEN 325 MG TABLET (FP) PO PRN ×2 (22:29)
[2019-11-07] MEDS: chlordiazePOXIDE HCL 25 MG CAPSULE PO SCH ×5 (00:01→23:37)
[2019-11-07] MEDS: PRENATAL VITAMINS W/ FOLIC ACID TABLET (FP) PO SCH (10:28)
--- NOTE | 2019-11-07 13:08 | PN ---
S CIWA - CIWA Score Nausea/Vomitin-Mild Nausea/No Vomiting Muscle Tremors: 4-Moderate,w/Arms Extend Anxiety: 3 Agitation: 0-Normal Activity Paroxysmal Sweats: 2 Orientation: 1-Uncertain about Date Tacttile Disturbances: 1-Very Mild Itch/Numbness Auditory Disturbances: 1-Very Mild Visual Disturbances: 0-None Headache: 1-Very Mild CIWA-Ar Total Score: 14 BHS Progress Note (SOAP) Subjective: 39 years old male admitted on 11/06/19 for alcohol withdrawal sx management treating with librium detox regimen feeling ok today ate breakfast ambulating from bed to bathroom steady gait Objective: 11/07/19 13:07 Vital Signs Temperature 98.6 F 11/07/19 09:31 Pulse Rate 70 11/07/19 09:31 Respiratory Rate 18 11/07/19 09:31 Blood Pressure 137/95 11/07/19 09:31 O2 Sat by Pulse Oximetry (%) 11/07/19 13:08 lab pending Assessment: 11/07/19 13:08 alcohol withdrawal Plan: librium regimen
[2019-11-07 13:49] LABS: HEMATOCRIT 40.4 % (35.4-49); HEMOGLOBIN 13.3 GM/dL (11.7-16.9); MCH 27.3 pg (25.7-33.7); MCHC 32.8 g/dl (32.0-35.9); MEAN CELL VOLUME 83.4 fl (80-96); MEAN PLT VOLUME 9.7 fl (7.5-11.1); PLATELET COUNT 281 K/MM3 (134-434); RBC 4.85 M/mm3 (4.00-5.60); RDW 14.7 % (11.9-15.9); WHITE BLOOD COUNT 6.3 K/mm3 (4.0-10.0)
[2019-11-07 14:10] LABS: ALBUMIN 3.2 g/dl (3.4-5.0); BILIRUBIN,TOTAL 0.1 mg/dL (0.2-1); CALCIUM 8.5 mg/dL (8.5-10.1); CREATININE 0.9 mg/dL (0.55-1.3); POTASSIUM 3.6 mmol/L (3.5-5.1)
--- NOTE | 2019-11-07 16:03 | CONSULT ---
[facility] Psychiatric Consult - Data Date of interview: 11/07/19 Admission source: [facility] Identifying data: Clinical Lab Assistant approached patient for psychiatric consultation. Patient stated to promotion writer, " I do not need to speak to you, I do not want any medications." Patient then covered his head with his bed sheets. Psychiatric consultation refused.
[2019-11-07] MEDS ORDERED: THIAMINE HCL 100 MG TABLET (FP) PO SCH (22:00)
[2019-11-08] MEDS: chlordiazePOXIDE HCL 25 MG CAPSULE PO SCH ×3 (05:57→18:00)
--- NOTE | 2019-11-08 09:41 | PN ---
[facility] CIWA - CIWA Score Nausea/Vomitin-Mild Nausea/No Vomiting Muscle Tremors: 3 Anxiety: 3 Agitation: 1-Slight > Activity Paroxysmal Sweats: 2 Orientation: 1-Uncertain about Date Tacttile Disturbances: 0-None Auditory Disturbances: 0-None Visual Disturbances: 0-None Headache: 1-Very Mild CIWA-Ar Total Score: 12 S Progress Note (SOAP) Subjective: 39 years old male admitted on 11/06/19 for alcohol withdrawal sx management treating with librium detox regimen ate breakfast social with peers in day room discuss aftercare with staff Objective: 11/08/19 09:51 Vital Signs Temperature 97.6 F 11/08/19 09:17 Pulse Rate 76 11/08/19 09:17 Respiratory Rate 18 11/08/19 09:17 Blood Pressure 98/54 L 11/08/19 09:17 O2 Sat by Pulse Oximetry (%) Laboratory Last Values WBC 6.3 K/mm3 (4.0-10.0) 11/07/19 07:30 RBC 4.85 M/mm3 (4.00-5.60) 11/07/19 07:30 Hgb 13.3 GM/dL (11.7-16.9) 11/07/19 07:30 Hct 40.4 % (35.4-49) 11/07/19 07:30 MCV 83.4 fl (80-96) 11/07/19 07:30 MCH 27.3 pg (25.7-33.7) 11/07/19 07:30 MCHC 32.8 g/dl (32.0-35.9) 11/07/19 07:30 RDW 14.7 % (11.9-15.9) 11/07/19 07:30 Plt Count 281 K/MM3 (134-434) D 11/07/19 07:30 MPV 9.7 fl (7.5-11.1) D 11/07/19 07:30 Sodium 142 mmol/L (136-145) 11/07/19 07:30 Potassium 3.6 mmol/L (3.5-5.1) 11/07/19 07:30 Chloride 106 mmol/L (98-107) 11/07/19 07:30 Carbon Dioxide 30 mmol/L (21-32) 11/07/19 07:30 Anion Gap 6 MMOL/L (8-16) L 11/07/19 07:30 BUN 15.0 mg/dL (7-18) 11/07/19 07:30 Creatinine 0.9 mg/dL (0.55-1.3) 11/07/19 07:30 Est GFR (CKD-EPI)AfAm 125.13 11/07/19 07:30 Est GFR (CKD-EPI)NonAf 107.97 11/07/19 07:30 Random Glucose 96 mg/dL (74-106) 11/07/19 07:30 Calcium 8.5 mg/dL (8.5-10.1) 11/07/19 07:30 Total Bilirubin 0.1 mg/dL (0.2-1) L 11/07/19 07:30 AST 23 U/L (15-37) 11/07/19 07:30 ALT 36 U/L (13-61) 11/07/19 07:30 Alkaline Phosphatase 54 U/L (45-117) 11/07/19 07:30 Total Protein 6.0 g/dl (6.4-8.2) L 11/07/19 07:30 Albumin 3.2 g/dl (3.4-5.0) L 11/07/19 07:30 RPR Titer Nonreactive (NONREACTIVE) 11/07/19 07:30 lab noted Assessment: 11/08/19 09:51 alcohol withdrawal Plan: librium regimen
[2019-11-08] MEDS: PRENATAL VITAMINS W/ FOLIC ACID TABLET (FP) PO SCH (11:26)
[2019-11-08 17:08] VITALS: BP 127/84; PULSE 82; TEMP 99.1
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
[2019-11-09] MEDS ORDERED: chlordiazePOXIDE HCL 10 MG CAPSULE PO PRN
[2019-11-09] MEDS ORDERED: chlordiazePOXIDE HCL 10 MG CAPSULE PO SCH (05:00)
[2019-11-10] MEDS ORDERED: chlordiazePOXIDE HCL 10 MG CAPSULE PO SCH (05:00)
[2019-11-11] MEDS ORDERED: chlordiazePOXIDE HCL 10 MG CAPSULE PO ONE (05:00)
== END 2019-11-08 17:59 | disposition left against medical advice (07) | DRG 770 ==
LOC: YASAS 17:34 → Y3N 23:05
PROVIDERS: ADMIT Allergy & Immunology; ATTEND Allergy & Immunology
PROC: HZ2ZZZZ Detoxification Services for Substance Abuse Treatment (ICD-10-PCS; principal; 2019-11-06)
DX: F10.230 Alcohol dependence with withdrawal, uncomplicated (principal); F16.20 Hallucinogen dependence, uncomplicated; F12.20 Cannabis dependence, uncomplicated; F20.9 Schizophrenia, unspecified; E66.9 Obesity, unspecified; Z68.33 Body mass index [BMI] 33.0-33.9, adult
CPT/HCPCS: 36415; 80053; 85027; 86593

== ENCOUNTER 2020-09-20 18:18 | Emergency (ER) | payer OTHER ==
[2020-09-20 18:30] VITALS: BMI 26.7
[2020-09-20 19:27] LABS: BASO % 0.9 % (0-2.0); HEMOGLOBIN 13.4 GM/dL (11.7-16.9); LYMPH % 20.1 % (8-40); MCH 27.7 pg (25.7-33.7); MCHC 32.7 g/dl (32.0-35.9); MEAN CELL VOLUME 84.9 fl (80-96); MONO % 5.8 % (3.8-10.2); NEUT % 72.2 % (42.8-82.8); PLATELET COUNT 346 K/MM3 (134-434); RBC 4.83 M/mm3 (4.00-5.60); RDW 14.7 % (11.9-15.9); WHITE BLOOD COUNT 8.9 K/mm3 (4.0-10.0)
[2020-09-20] MEDS ORDERED: HALOPERIDOL LACTATE 5 MG/ML IM ONE (19:32)
[2020-09-20 19:58] LABS: CHLORIDE 104 mmol/L (98-107); POTASSIUM 3.8 mmol/L (3.5-5.1); SODIUM 140 mmol/L (136-145)
[2020-09-20 20:01] LABS: ALBUMIN 3.9 g/dl (3.4-5.0); ANION GAP 5 MMOL/L (8-16); BLOOD UREA NITROGEN 17.6 mg/dL (7-18); CO2 31 mmol/L (21-32); GLUCOSE,RANDOM 89 mg/dL (74-106)
[2020-09-20 20:04] LABS: CREATININE 0.9 mg/dL (0.55-1.3); SGOT/AST 36 U/L (15-37); SGPT/ALT 40 U/L (13-61)
[2020-09-20 20:05] LABS: BILIRUBIN,TOTAL 0.4 mg/dL (0.2-1)
[2020-09-20 20:06] LABS: ALK PHOS 58 U/L (45-117)
[2020-09-20 20:06] LABS: HCG,QUALITATIVE URINE Negative
[2020-09-20 20:10] LABS: URINE APPEARANCE CLOUDY; URINE BILIRUBIN NEGATIVE (NEGATIVE); URINE COLOR YELLOW; URINE GLUCOSE (UA) NEGATIVE (NEGATIVE); URINE KETONE TRACE (NEGATIVE); URINE LEUK ESTERASE NEGATIVE (NEGATIVE); URINE NITRITE NEGATIVE (NEGATIVE); URINE PROTEIN NEGATIVE (NEGATIVE)
[2020-09-20 20:52] LABS: COCAINE, UR NEGATIVE ng/ml (CUTOFF=300)
[2020-09-20 21:03] LABS: METHADONE, UR NEGATIVE ng/ml (CUTOFF=300); OPIATES, URI NEGATIVE ng/ml (CUTOFF=300); URINE AMPHETAMINES NEGATIVE ng/ml (CUTOFF=500); URINE BARBITURATES NEGATIVE ng/ml (CUTOFF=200); URINE BENZODIAZEPINES NEGATIVE ng/ml (CUTOFF=200)
[2020-09-20 21:07] LABS: PHENCYCLIDINE,URINE POSITIVE ng/ml (CUTOFF=25)
[2020-09-21] MEDS ORDERED: IBUPROFEN 600 MG TABLET (FP) PO ONE ×2 (14:27→14:46)
[2020-09-21] MEDS ORDERED: LORazepam 2 MG/ML SDV VIAL ONE (21:22)
[2020-09-21] MEDS ORDERED: HALOPERIDOL LACTATE 5 MG/ML ONE (21:22)
[2020-09-21] MEDS ORDERED: LORazepam 1 MG TABLET PO ONE (21:27)
[2020-09-21] MEDS ORDERED: diazePAM 5 MG TABLET ONE (21:28)
[2020-09-21] MEDS ORDERED: diazePAM 5 MG TABLET PO ONE (21:28)
[2020-09-22] MEDS ORDERED: IBUPROFEN 400 MG TABLET (FP) PO ONE (02:16)
[2020-09-22] MEDS ORDERED: IBUPROFEN 600 MG TABLET (FP) PO ONE ×2 (02:19)
[2020-09-22] MEDS ORDERED: diphenhydrAMINE HCL 25 MG CAPSULE (FP) PO ONE ×2 (03:14→03:17)
[2020-09-22] MEDS ORDERED: diazePAM 5 MG TABLET PO ONE (03:14)
[2020-09-22] MEDS ORDERED: diazePAM 5 MG TABLET ONE (03:18)
[2020-09-22 03:25] VITALS: BP 127/76; PULSE 86; TEMP 99
== END 2020-09-22 03:30 | disposition short-term general hospital (02) ==
LOC: JER 18:18
PROC: 3E033GC Introduction of Other Therapeutic Substance into Peripheral Vein, Percutaneous Approach (ICD-10-PCS; principal; 2020-09-20)
PROC: 3E023NZ Introduction of Analgesics, Hypnotics, Sedatives into Muscle, Percutaneous Approach (ICD-10-PCS; 2020-09-20)
PROC: 3E023NZ Introduction of Analgesics, Hypnotics, Sedatives into Muscle, Percutaneous Approach (ICD-10-PCS; 2020-09-20)
DX: R45.851 Suicidal ideations (principal); F19.10 Other psychoactive substance abuse, uncomplicated
CPT/HCPCS: 36415; 71045-TC-FY; 80053; 80307; 81003; 82550; 82553; 84443; 84484; 84703; 85025; 93005; 93010; 99285-25; C9803; U0003

== ENCOUNTER 2020-11-16 22:34 | Emergency (ER) | payer OTHER ==
[2020-11-16 22:48] VITALS: TEMP 98.3; BMI 28.8
[2020-11-16] MEDS ORDERED: MAG HYDROX/AL HYDROX/SIMETH 30 ML UNIT-DOSE CUP PO ONE (22:58)
[2020-11-16] MEDS ORDERED: FAMOTIDINE 10 MG TABLET PO ONE (22:58)
[2020-11-16] MEDS ORDERED: LIDOCAINE VISCOUS 2% ORAL/TOP 20 ML UNIT-DOSE CUP MM ONE (23:00)
[2020-11-16] MEDS ORDERED: LIDOCAINE VISCOUS 2% ORAL/TOP 20 ML UNIT-DOSE CUP ONE (23:48)
[2020-11-16] MEDS ORDERED: FAMOTIDINE 10 MG TABLET ONE (23:48)
[2020-11-16] MEDS ORDERED: MAG HYDROX/AL HYDROX/SIMETH 30 ML UNIT-DOSE CUP ONE (23:49)
[2020-11-16 23:56] LABS: BASO % 0.7 % (0-2.0); EOS % 1.7 % (0-4.5); HEMATOCRIT 38.3 % (35.4-49); HEMOGLOBIN 12.5 GM/dL (11.7-16.9); MCH 27.9 pg (25.7-33.7); MCHC 32.5 g/dl (32.0-35.9); MEAN CELL VOLUME 85.9 fl (80-96); MEAN PLT VOLUME 8.3 fl (7.5-11.1); MONO % 7.9 % (3.8-10.2); NEUT % 65.7 % (42.8-82.8); PLATELET COUNT 331 K/MM3 (134-434); RBC 4.46 M/mm3 (4.00-5.60); RDW 14.5 % (11.9-15.9); WHITE BLOOD COUNT 7.8 K/mm3 (4.0-10.0)
[2020-11-17 00:13] LABS: POTASSIUM 4.1 mmol/L (3.5-5.1)
[2020-11-17 00:15] LABS: ALBUMIN 3.5 g/dl (3.4-5.0); CALCIUM 8.5 mg/dL (8.5-10.1)
[2020-11-17 00:18] LABS: CREATININE 0.9 mg/dL (0.55-1.3)
[2020-11-17 00:21] LABS: BILIRUBIN,TOTAL 0.2 mg/dL (0.2-1); TOT PROT 6.5 g/dl (6.4-8.2)
[2020-11-17 07:18] VITALS: BP 133/89; PULSE 86
== END 2020-11-17 07:16 | disposition home or self-care (01) ==
LOC: JER 22:34
DX: R10.13 Epigastric pain (principal)
CPT/HCPCS: 36415; 80053; 83690; 85025; 99283-25

== ENCOUNTER 2020-11-18 12:08 | Emergency (ER) | payer OTHER ==
[2020-11-18 12:58] VITALS: BP 129/80; PULSE 110; TEMP 98.5; BMI 28.0
== END 2020-11-18 16:47 | disposition home or self-care (01) ==
LOC: JER 12:08
DX: R51.9 Headache, unspecified (principal); F10.920 Alcohol use, unspecified with intoxication, uncomplicated
CPT/HCPCS: 99284-25

== ENCOUNTER 2020-12-21 02:58 | Emergency (ER) | payer OTHER ==
[2020-12-21 04:11] VITALS: BP 120/79; PULSE 76; TEMP 98.3; BMI 28.0
== END 2020-12-21 03:49 | disposition home or self-care (01) ==
LOC: JER 02:58
DX: M94.0 Chondrocostal junction syndrome [Tietze] (principal)
CPT/HCPCS: 93005; 93010; 99281-25

== ENCOUNTER 2021-01-09 21:45 | Emergency (ER) | payer OTHER ==
[2021-01-09 21:54] VITALS: BMI 28.8
[2021-01-09 22:16] LABS: BASO % 2.6 % (0-2.0); EOS % 1.4 % (0-4.5); HEMATOCRIT 39.5 % (35.4-49); HEMOGLOBIN 13.1 GM/dl (11.7-16.9); LYMPH % 19.4 % (8-40); MCH 28.4 pg (25.7-33.7); MEAN PLT VOLUME 8.6 fl (7.5-11.1); MONO % 6.2 % (3.8-10.2); NEUT % 70.4 % (42.8-82.8); PLATELET COUNT 367 K/MM3 (134-434); RBC 4.59 M/mm3 (4.00-5.60); RDW 14.2 % (11.9-15.9); WHITE BLOOD COUNT 10.1 K/mm3 (4.0-10.8)
[2021-01-09 22:28] LABS: ALBUMIN 4.2 g/dl (3.4-5.0); BILIRUBIN,TOTAL 0.4 mg/dl (0.2-1); CALCIUM 8.7 mg/dl (8.5-10); CREATININE 0.9 mg/dl (0.55-1.3); POTASSIUM 3.8 mmol/L (3.5-5.1)
[2021-01-09] MEDS ORDERED: traZODone HCL 50 MG TABLET (FP) PO ONE (22:49)
[2021-01-09] MEDS ORDERED: risperiDONE 2 MG TABLET PO ONE (22:49)
[2021-01-09] MEDS ORDERED: risperiDONE 1 MG TABLET ONE (22:53)
[2021-01-10 00:16] VITALS: BP 134/87; PULSE 114
[2021-01-10 00:18] VITALS: TEMP 98.8
== END 2021-01-10 01:05 | disposition short-term general hospital (02) ==
LOC: FER 21:45
DX: F31.9 Bipolar disorder, unspecified (principal); F32.3 Major depressive disorder, single episode, severe with psychotic features; R45.851 Suicidal ideations
CPT/HCPCS: 36415; 80053; 85025; 99283-25

== ENCOUNTER 2021-01-31 00:10 | Emergency (ER) | payer OTHER ==
[2021-01-31 01:16] VITALS: BP 120/79; PULSE 91; TEMP 98; BMI 23.4
== END 2021-01-31 03:03 | disposition home or self-care (01) ==
LOC: JER 00:10
DX: R53.81 Other malaise (principal)
CPT/HCPCS: 99281-25

== ENCOUNTER 2021-12-02 01:32 | Emergency (ER) | payer OTHER ==
[2021-12-02] MEDS ORDERED: ACETAMINOPHEN 325 MG TABLET (FP) PO ONE (01:50)
[2021-12-02] MEDS ORDERED: ACETAMINOPHEN 325 MG TABLET (FP) ONE (01:57)
[2021-12-02 02:03] VITALS: TEMP 98.1; BMI 26.6
[2021-12-02 02:32] LABS: HEMATOCRIT 37.5 % (35.4-49); HEMOGLOBIN 12.6 GM/dL (11.7-16.9); MCH 27.9 pg (25.7-33.7); MCHC 33.5 g/dl (32.0-35.9); MEAN CELL VOLUME 83.2 fl (80-96); MEAN PLT VOLUME 8.6 fl (7.5-11.1); PLATELET COUNT 309 10^3/uL (134-434); RBC 4.51 M/mm3 (4.00-5.60); RDW 15.1 % (11.9-15.9); WHITE BLOOD COUNT 6.1 K/mm3 (4.0-10.0)
[2021-12-02] MEDS ORDERED: ONDANSETRON 4 MG/2 ML VIAL IVPUSH ONE (02:45)
[2021-12-02 02:51] LABS: CHLORIDE 108 mmol/L (98-107); SODIUM 143 mmol/L (136-145)
[2021-12-02] MEDS ORDERED: ONDANSETRON 4 MG/2 ML VIAL ONE (02:52)
[2021-12-02 02:53] LABS: CALCIUM 8.2 mg/dL (8.5-10.1)
[2021-12-02 02:54] LABS: ALBUMIN 3.8 g/dl (3.4-5.0); ANION GAP 5 MMOL/L (8-16); CO2 30 mmol/L (21-32); GLUCOSE,RANDOM 105 mg/dL (74-106)
[2021-12-02 02:57] LABS: CREATININE 0.9 mg/dL (0.55-1.3); SGOT/AST 22 U/L (15-37); SGPT/ALT 29 U/L (13-61)
[2021-12-02 02:59] LABS: BILIRUBIN,TOTAL 0.3 mg/dL (0.2-1); TOT PROT 6.7 g/dl (6.4-8.2)
[2021-12-02 03:00] LABS: ALK PHOS 46 U/L (45-117)
[2021-12-02] MEDS ORDERED: MAGNESIUM SULF 50% (8.12 MEQ/2 ML-1 GM VIAL) IVPB ONE ×2 (03:28→03:43)
[2021-12-02] MEDS ORDERED: KCL 10 MEQ IVPB 10 MEQ/100 ML INFUS.BAG IVPB SCH (03:30)
[2021-12-02] MEDS ORDERED: POTASSIUM CHLORIDE TABS 20 MEQ TABLET.ER (FP) PO ONE ×2 (03:43→03:52)
[2021-12-02] MEDS ORDERED: MAGNESIUM 1GM/D5W - 1 GM/100 ML IVPB IVPB ONE (03:44)
[2021-12-02 03:56] LABS: EPI CELLS 4 /uL (0-25.1); HYALINE CASTS 2 /uL (0-3.1); PH,URINE 5.5 (5.0-8.0); URINE APPEARANCE CLEAR; URINE BACTERIA 1 /uL (0-1359); URINE BILIRUBIN 1+ (NEGATIVE); URINE COLOR DK YELLOW; URINE GLUCOSE (UA) NEGATIVE (NEGATIVE); URINE KETONE TRACE (NEGATIVE); URINE LEUK ESTERASE NEGATIVE (NEGATIVE); URINE NITRITE NEGATIVE (NEGATIVE); URINE PROTEIN 1+ (NEGATIVE); URINE RBC 28 /uL (0-23.9); URINE WBC 7 /uL (0-25.8)
[2021-12-02 05:12] VITALS: BP 97/50; PULSE 51
== END 2021-12-02 05:12 | disposition home or self-care (01) ==
LOC: JER 01:32
PROC: 3E033GC Introduction of Other Therapeutic Substance into Peripheral Vein, Percutaneous Approach (ICD-10-PCS; principal; 2021-12-02)
DX: R07.89 Other chest pain (principal)
CPT/HCPCS: 36415; 71046-TC-FY; 80053; 80307; 81003; 82550; 82553; 84484; 85027; 93005; 93010; 99285-25

== ENCOUNTER 2021-12-22 07:14 | Observation (INO) | payer SELFPAY ==
[2021-12-22 07:25] VITALS: BMI 26.4
[2021-12-22] MEDS ORDERED: risperiDONE 0.5 MG TABLET ONE ×3 (09:16→21:17)
[2021-12-22] MEDS: risperiDONE 2 MG TABLET PO ONE ×2 (09:23→11:22)
[2021-12-22 10:04] LABS: BASO % 0.7 % (0-2.0); EOS % 1.9 % (0-4.5); HEMATOCRIT 40.2 % (35.4-49); HEMOGLOBIN 12.7 GM/dL (11.7-16.9); LYMPH % 19.9 % (8-40); MCH 27.2 pg (25.7-33.7); MCHC 31.7 g/dl (32.0-35.9); MEAN CELL VOLUME 85.7 fl (80-96); MEAN PLT VOLUME 9.1 fl (7.5-11.1); MONO % 7.4 % (3.8-10.2); NEUT % 70.1 % (42.8-82.8); PLATELET COUNT 305 10^3/uL (134-434); RBC 4.68 M/mm3 (4.00-5.60); RDW 15.5 % (11.9-15.9); WHITE BLOOD COUNT 6.7 K/mm3 (4.0-10.0)
[2021-12-22 10:05] LABS: CHLORIDE 109 mmol/L (98-107); SODIUM 142 mmol/L (136-145)
[2021-12-22 10:07] LABS: CALCIUM 9.1 mg/dL (8.5-10.1)
[2021-12-22 10:08] LABS: ALBUMIN 3.5 g/dl (3.4-5.0); ANION GAP 5 MMOL/L (8-16); CO2 28 mmol/L (21-32); GLUCOSE,RANDOM 86 mg/dL (74-106)
[2021-12-22 10:09] LABS: EPI CELLS 11 /uL (0-25.1); HYALINE CASTS 6 /uL (0-3.1); URINE APPEARANCE CLEAR; URINE BACTERIA 5 /uL (0-1359); URINE BILIRUBIN NEGATIVE (NEGATIVE); URINE COLOR DK YELLOW; URINE GLUCOSE (UA) NEGATIVE (NEGATIVE); URINE KETONE 1+ (NEGATIVE); URINE LEUK ESTERASE NEGATIVE (NEGATIVE); URINE NITRITE NEGATIVE (NEGATIVE); URINE PROTEIN 1+ (NEGATIVE); URINE RBC 2 /uL (0-23.9); URINE WBC 8 /uL (0-25.8)
[2021-12-22 10:10] LABS: COCAINE, UR NEGATIVE (NEGATIVE); CREATININE 0.6 mg/dL (0.55-1.3); URINE AMPHETAMINES NEGATIVE (NEGATIVE); URINE BARBITURATES NEGATIVE (NEGATIVE)
[2021-12-22 10:11] LABS: SGOT/AST 20 U/L (15-37); SGPT/ALT 31 U/L (13-61); URINE BENZODIAZEPINES NEGATIVE (NEGATIVE)
[2021-12-22 10:12] LABS: BILIRUBIN,TOTAL 0.5 mg/dL (0.2-1); TOT PROT 6.2 g/dl (6.4-8.2)
[2021-12-22 10:13] LABS: ALK PHOS 39 U/L (45-117)
[2021-12-22 10:15] LABS: METHADONE, UR NEGATIVE (NEGATIVE); OPIATES, URI NEGATIVE (NEGATIVE); PHENCYCLIDINE,URINE POSITIVE (NEGATIVE)
[2021-12-22 20:03] LABS: SARS AG REFLEX COV19 SEND OUT negative (Negative)
[2021-12-22] MEDS ORDERED: risperiDONE 2 MG TABLET PO ONE (21:00)
[2021-12-22] MEDS ORDERED: HALOPERIDOL LACTATE 5 MG/ML ONE (22:14)
[2021-12-22] MEDS ORDERED: HALOPERIDOL LACTATE 5 MG/ML IM ONE (22:15)
[2021-12-22] MEDS ORDERED: LORazepam 2 MG/ML SDV VIAL IM ONE (22:16)
[2021-12-23] MEDS: risperiDONE 1 MG TABLET PO SCH ×2 (12:56→22:52)
[2021-12-23 13:15] LABS: ALBUMIN 3.3 g/dl (3.4-5.0); BLOOD UREA NITROGEN 11.6 mg/dL (7-18); CALCIUM 8.5 mg/dL (8.5-10.1)
[2021-12-23 13:18] LABS: CREATININE 0.8 mg/dL (0.55-1.3)
[2021-12-23 13:20] LABS: BILIRUBIN,TOTAL 0.4 mg/dL (0.2-1); TOT PROT 6.3 g/dl (6.4-8.2)
[2021-12-23 13:23] LABS: BASO % 0.5 % (0-2.0); EOS % 2.6 % (0-4.5); HEMOGLOBIN 13.3 GM/dL (11.7-16.9); LYMPH % 16.6 % (8-40); MCHC 33.4 g/dl (32.0-35.9); MEAN CELL VOLUME 83.9 fl (80-96); NEUT % 74.3 % (42.8-82.8); PLATELET COUNT 311 10^3/uL (134-434); RBC 4.76 M/mm3 (4.00-5.60); RDW 15.2 % (11.9-15.9); WHITE BLOOD COUNT 6.8 K/mm3 (4.0-10.0)
[2021-12-23 15:07] LABS: SARS-CoV-2 NAA Not Detected (Not Detected)
[2021-12-24 10:14] VITALS: BP 112/61; PULSE 84; TEMP 98.7
[2021-12-24] MEDS: risperiDONE 1 MG TABLET PO SCH (10:14)
== END 2021-12-24 11:41 ==
LOC: JER 07:14 → JERBED 16:00 → J7W 22:47
CPT/HCPCS: 36415; 71045-TC-FY; 80053; 80307; 81003; 82550; 82553; 84439; 84443; 84484; 85025; 87086; 87426; 93005; 93010; 99285-25; C9803; G0378; U0003; U0005

== ENCOUNTER 2022-07-02 22:32 | Inpatient (IN) | payer OTHER ==
[2022-07-02 22:54] VITALS: BMI 28.1
[2022-07-02] MEDS ORDERED: guaiFENesin 200 MG/10 ML 10 ML UNIT-DOSE CUPS PO PRN (23:15)
[2022-07-02] MEDS ORDERED: IBUPROFEN 400 MG TABLET (FP) PO PRN (23:15)
[2022-07-02] MEDS ORDERED: MAG HYDROX/AL HYDROX/SIMETH 30 ML UNIT-DOSE CUP PO PRN (23:15)
[2022-07-02] MEDS ORDERED: ACETAMINOPHEN 325 MG TABLET (FP) PO PRN ×2 (23:15)
[2022-07-02] MEDS ORDERED: LOPERAMIDE HCL 2 MG CAPSULE PO PRN (23:15)
[2022-07-02] MEDS ORDERED: hydrOXYzine PAMOATE 25 MG CAPSULE (FP) PO PRN (23:15)
[2022-07-02] MEDS ORDERED: BISMUTH SUBSALICYLATE 524 MG/30 ML PO PRN (23:15)
[2022-07-02] MEDS ORDERED: BENZOCAINE/MENTHOL (CHLORASEPTIC ) LOZENGE MM PRN (23:15)
[2022-07-02] MEDS ORDERED: DICYCLOMINE HCL 10 MG CAPSULE PO PRN (23:15)
[2022-07-02] MEDS ORDERED: P-EPHED 60MG/TRIPROLIDI 2.5MG TABLET PO PRN (23:15)
[2022-07-02] MEDS ORDERED: MELATONIN 5 MG TABLETS PO PRN (23:15)
[2022-07-02] MEDS ORDERED: IBUPROFEN 600 MG TABLET (FP) PO PRN (23:15)
[2022-07-02] MEDS ORDERED: ONDANSETRON *ODT* 4 MG TABLET SL PRN (23:15)
[2022-07-02] MEDS ORDERED: METHOCARBAMOL 500 MG TABLET PO PRN (23:15)
[2022-07-02] MEDS ORDERED: MAGNESIUM HYDROX 2400MG/30ML ORAL SUSPENSION 30 ML CUP PO PRN (23:15)
[2022-07-02] MEDS ORDERED: MAGNESIUM CITRATE 300 ML BOTTLE PO PRN (23:15)
[2022-07-02] MEDS ORDERED: IBUPROFEN 600 MG TABLET (FP) PO ONE (23:55)
[2022-07-03] MEDS: PRENATAL VITAMINS W/ FOLIC ACID TABLET (FP) PO SCH (11:16)
[2022-07-03 11:45] LABS: HEMATOCRIT 39.7 % (35.4-49); HEMOGLOBIN 13.1 GM/dL (11.7-16.9); MCHC 33.1 g/dl (32.0-35.9); MEAN CELL VOLUME 84.6 fl (80-96); MEAN PLT VOLUME 8.2 fl (7.5-11.1); PLATELET COUNT 346 10^3/uL (134-434); RBC 4.69 M/mm3 (4.00-5.60); RDW 13.7 % (11.9-15.9); WHITE BLOOD COUNT 6.4 K/mm3 (4.0-10.0)
[2022-07-03 12:05] LABS: ALBUMIN 3.2 g/dl (3.4-5.0); BLOOD UREA NITROGEN 15.3 mg/dL (7-18); CALCIUM 8.8 mg/dL (8.5-10.1)
[2022-07-03 12:08] LABS: CREATININE 0.8 mg/dL (0.55-1.3)
[2022-07-03 12:10] LABS: BILIRUBIN,TOTAL 0.2 mg/dL (0.2-1)
[2022-07-03 21:52] VITALS: RESP 18
[2022-07-03] MEDS ORDERED: THIAMINE HCL 100 MG TABLET (FP) PO SCH (22:00)
[2022-07-04 09:34] VITALS: BP 130/87; PULSE 61; TEMP 97.3
[2022-07-04] MEDS: PRENATAL VITAMINS W/ FOLIC ACID TABLET (FP) PO SCH (11:11)
== END 2022-07-04 11:15 | disposition home or self-care (01) | DRG 775 ==
LOC: YASAS 22:32 → Y6N 07-03 00:18 → UNDOADMIN 07-03 00:18 → UNDODISIN 07-04 11:15
PROVIDERS: ADMIT Surgery; ATTEND Allergy & Immunology
PROC: HZ2ZZZZ Detoxification Services for Substance Abuse Treatment (ICD-10-PCS; principal; 2022-07-03)
DX: F10.230 Alcohol dependence with withdrawal, uncomplicated (principal); F15.20 Other stimulant dependence, uncomplicated; F12.20 Cannabis dependence, uncomplicated; F16.10 Hallucinogen abuse, uncomplicated; F17.210 Nicotine dependence, cigarettes, uncomplicated; F63.81 Intermittent explosive disorder
CPT/HCPCS: 36415; 80053; 85027; 86780; 87811; C9803-CS; U0003; U0005

== ENCOUNTER 2022-07-08 18:47 | Inpatient (IN) | payer OTHER ==
[2022-07-08 19:08] VITALS: BMI 30.4
[2022-07-08] MEDS ORDERED: SODIUM CHLORIDE 0.9% 500 ML INFUS.BAG IV ONE (20:10)
[2022-07-08] MEDS ORDERED: risperiDONE 2 MG TABLET PO ONE (20:25)
[2022-07-08] MEDS ORDERED: risperiDONE 0.5 MG TABLET ONE (20:49)
[2022-07-08 21:13] LABS: BASO % 0.5 % (0-2.0); EOS % 1.1 % (0-4.5); HEMATOCRIT 43.6 % (35.4-49); HEMOGLOBIN 14.3 GM/dL (11.7-16.9); LYMPH % 33.2 % (8-40); MCH 27.8 pg (25.7-33.7); MCHC 32.8 g/dl (32.0-35.9); MEAN PLT VOLUME 8.7 fl (7.5-11.1); MONO % 7.2 % (3.8-10.2); PLATELET COUNT 338 10^3/uL (134-434); RBC 5.13 M/mm3 (4.00-5.60); RDW 13.4 % (11.9-15.9); WHITE BLOOD COUNT 8.2 K/mm3 (4.0-10.0)
[2022-07-08 21:25] LABS: CALCIUM 9.2 mg/dL (8.5-10.1)
[2022-07-08 21:29] LABS: CREATININE 1.3 mg/dL (0.55-1.3)
[2022-07-08 21:30] LABS: BILIRUBIN,TOTAL 0.7 mg/dL (0.2-1); TOT PROT 7.8 g/dl (6.4-8.2)
[2022-07-08 21:32] LABS: ALBUMIN 4.2 g/dl (3.4-5.0)
[2022-07-08 23:56] LABS: COCAINE, UR NEGATIVE (NEGATIVE); URINE BARBITURATES NEGATIVE (NEGATIVE)
[2022-07-09 00:01] LABS: METHADONE, UR NEGATIVE (NEGATIVE); OPIATES, URI NEGATIVE (NEGATIVE); PHENCYCLIDINE,URINE POSITIVE (NEGATIVE); URINE AMPHETAMINES NEGATIVE (NEGATIVE); URINE BENZODIAZEPINES NEGATIVE (NEGATIVE)
[2022-07-09 06:41] VITALS: TEMP 97
[2022-07-09 06:41] LABS: EOS % 2.2 % (0-4.5); HEMATOCRIT 41.4 % (35.4-49); HEMOGLOBIN 13.5 GM/dL (11.7-16.9); MCH 27.7 pg (25.7-33.7); MCHC 32.7 g/dl (32.0-35.9); MEAN CELL VOLUME 84.7 fl (80-96); MEAN PLT VOLUME 8.7 fl (7.5-11.1); MONO % 8.5 % (3.8-10.2); NEUT % 46.3 % (42.8-82.8); PLATELET COUNT 298 10^3/uL (134-434); RBC 4.89 M/mm3 (4.00-5.60); RDW 13.3 % (11.9-15.9); WHITE BLOOD COUNT 5.8 K/mm3 (4.0-10.0)
[2022-07-09 06:58] LABS: CALCIUM 8.7 mg/dL (8.5-10.1)
[2022-07-09 06:59] LABS: ALBUMIN 3.8 g/dl (3.4-5.0); BLOOD UREA NITROGEN 26.4 mg/dL (7-18); MAGNESIUM 2.3 mg/dL (1.8-2.4)
[2022-07-09 07:02] LABS: PHOSPHOROUS 3.7 mg/dL (2.5-4.9)
[2022-07-09 07:04] LABS: BILIRUBIN,TOTAL 0.8 mg/dL (0.2-1); TOT PROT 6.6 g/dl (6.4-8.2)
[2022-07-09] MEDS: SODIUM CHLORIDE 1,000 ML IV SCH (08:09)
[2022-07-09] MEDS ORDERED: THIAMINE HCL 200 MG/2 ML VIAL ONE (09:01)
[2022-07-09] MEDS ORDERED: FOLIC ACID 1 MG TABLET (FP) ONE (09:01)
[2022-07-09] MEDS ORDERED: ENOXAPARIN NA (PORCINE) 40 MG/0.4 ML DISP.SYRIN SQ ONE (09:01)
[2022-07-09] MEDS: THIAMINE HCL 200 MG/2 ML VIAL IVPB SCH (09:17)
[2022-07-09] MEDS: ENOXAPARIN NA (PORCINE) 40 MG/0.4 ML DISP.SYRIN SQ SCH (09:17)
[2022-07-09] MEDS: FOLIC ACID 1 MG TABLET (FP) PO SCH (09:17)
[2022-07-09 19:29] LABS: PH,URINE 6.5 (5.0-8.0); URINE APPEARANCE CLEAR; URINE BILIRUBIN NEGATIVE (NEGATIVE); URINE COLOR YELLOW; URINE GLUCOSE (UA) NEGATIVE (NEGATIVE); URINE KETONE 2+ (NEGATIVE); URINE LEUK ESTERASE NEGATIVE (NEGATIVE); URINE NITRITE NEGATIVE (NEGATIVE); URINE PROTEIN TRACE (NEGATIVE)
[2022-07-09] MEDS ORDERED: LORazepam 1 MG TABLET ONE (21:52)
[2022-07-09] MEDS ORDERED: risperiDONE 0.5 MG TABLET ONE (21:52)
[2022-07-09] MEDS: LORazepam 1 MG TABLET PO SCH (21:57)
[2022-07-09] MEDS ORDERED: risperiDONE 2 MG TABLET PO SCH (22:00)
[2022-07-10] MEDS ORDERED: risperiDONE 1 MG TABLET PO SCH (07:18)
[2022-07-10 09:16] LABS: BASO % 0.4 % (0-2.0); EOS % 2.1 % (0-4.5); HEMATOCRIT 40.8 % (35.4-49); HEMOGLOBIN 13.3 GM/dL (11.7-16.9); LYMPH % 26.1 % (8-40); MCH 27.6 pg (25.7-33.7); MCHC 32.5 g/dl (32.0-35.9); MEAN CELL VOLUME 84.8 fl (80-96); MEAN PLT VOLUME 8.5 fl (7.5-11.1); MONO % 7.2 % (3.8-10.2); NEUT % 64.2 % (42.8-82.8); PLATELET COUNT 277 10^3/uL (134-434); RBC 4.81 M/mm3 (4.00-5.60); RDW 13.2 % (11.9-15.9); WHITE BLOOD COUNT 6.2 K/mm3 (4.0-10.0)
[2022-07-10 10:04] LABS: CALCIUM 8.3 mg/dL (8.5-10.1)
[2022-07-10 10:05] LABS: BLOOD UREA NITROGEN 14.4 mg/dL (7-18)
[2022-07-10 10:07] LABS: CREATININE 0.8 mg/dL (0.55-1.3)
[2022-07-10 10:09] LABS: BILIRUBIN,TOTAL 0.6 mg/dL (0.2-1); TOT PROT 5.9 g/dl (6.4-8.2)
[2022-07-10] MEDS ORDERED: FOLIC ACID 1 MG TABLET (FP) ONE (11:00)
[2022-07-10] MEDS ORDERED: ENOXAPARIN NA (PORCINE) 40 MG/0.4 ML DISP.SYRIN SQ ONE (11:01)
[2022-07-10] MEDS ORDERED: LORazepam 1 MG TABLET ONE (11:01)
[2022-07-10] MEDS: ENOXAPARIN NA (PORCINE) 40 MG/0.4 ML DISP.SYRIN SQ SCH (11:08)
[2022-07-10] MEDS: LORazepam 1 MG TABLET PO SCH (11:08)
[2022-07-10] MEDS: FOLIC ACID 1 MG TABLET (FP) PO SCH (11:08)
[2022-07-10] MEDS: SODIUM CHLORIDE 1,000 ML IV SCH (11:09)
[2022-07-10] MEDS: THIAMINE HCL 200 MG/2 ML VIAL IVPB SCH (12:37)
[2022-07-10 15:14] VITALS: BP 106/60; PULSE 84; RESP 20
== END 2022-07-10 16:21 | disposition home or self-care (01) | DRG 756 ==
LOC: JER 18:47 → JERBED 07-09 01:10 → OBSVTOIN 07-10 12:11
PROVIDERS: ADMIT Internal Medicine; ATTEND Nurse Practitioner Acute Care
DX: R45.851 Suicidal ideations (principal); R44.0 Auditory hallucinations; F16.10 Hallucinogen abuse, uncomplicated; F20.9 Schizophrenia, unspecified; E86.0 Dehydration; F10.220 Alcohol dependence with intoxication, uncomplicated; F12.90 Cannabis use, unspecified, uncomplicated; F17.210 Nicotine dependence, cigarettes, uncomplicated; F29 Unspecified psychosis not due to a substance or known physiological condition; R20.2 Paresthesia of skin; R41.0 Disorientation, unspecified; R53.1 Weakness; R55 Syncope and collapse; Z03.89 Encounter for observation for other suspected diseases and conditions ruled out; F41.8 Other specified anxiety disorders
CPT/HCPCS: 0241U-QW; 36415; 71045-TC-FY; 80053; 80307; 81003; 82550; 82553; 83735; 84100; 84484; 85025; 93005; 93010; 99285-25; G0378; J2794

== ENCOUNTER 2022-07-12 00:13 | Emergency (ER) | payer SELFPAY ==
[2022-07-12 00:38] VITALS: BP 103/66; PULSE 58; RESP 18; TEMP 97.4; BMI 27.3
[2022-07-12 01:47] LABS: BASO % 0.8 % (0-2.0); EOS % 2.6 % (0-4.5); HEMATOCRIT 38.1 % (35.4-49); HEMOGLOBIN 12.3 GM/dL (11.7-16.9); LYMPH % 38.2 % (8-40); MCH 27.5 pg (25.7-33.7); MCHC 32.3 g/dl (32.0-35.9); MEAN CELL VOLUME 85.1 fl (80-96); MEAN PLT VOLUME 9.2 fl (7.5-11.1); MONO % 7.2 % (3.8-10.2); NEUT % 51.2 % (42.8-82.8); PLATELET COUNT 279 10^3/uL (134-434); RBC 4.48 M/mm3 (4.00-5.60); RDW 13.5 % (11.9-15.9); WHITE BLOOD COUNT 7.3 K/mm3 (4.0-10.0)
[2022-07-12 02:06] LABS: CHLORIDE 110 mmol/L (98-107); SODIUM 144 mmol/L (136-145)
[2022-07-12 02:10] LABS: ALBUMIN 3.6 g/dl (3.4-5.0); ANION GAP 3 MMOL/L (8-16); BLOOD UREA NITROGEN 13.4 mg/dL (7-18); CALCIUM 8.8 mg/dL (8.5-10.1); CO2 31 mmol/L (21-32); GLUCOSE,RANDOM 88 mg/dL (74-106)
[2022-07-12 02:13] LABS: CREATININE 0.9 mg/dL (0.55-1.3); SGOT/AST 15 U/L (15-37); SGPT/ALT 22 U/L (13-61)
[2022-07-12 02:15] LABS: BILIRUBIN,TOTAL 0.3 mg/dL (0.2-1); TOT PROT 6.6 g/dl (6.4-8.2)
[2022-07-12 02:16] LABS: ALK PHOS 42 U/L (45-117)
[2022-07-12] MEDS ORDERED: MIDAZOLAM HCL 5 MG/1 ML Single Dose Vial IM ONE (12:02)
[2022-07-12] MEDS ORDERED: MIDAZOLAM HCL 2 MG/2 ML SINGLE DOSE VIAL ONE (12:04)
[2022-07-12] MEDS ORDERED: MIDAZOLAM HCL 5 MG/1 ML Single Dose Vial IVPUSH ONE (12:07)
== END 2022-07-12 13:30 | disposition home or self-care (01) ==
LOC: JER 00:13
PROC: 3E033GC Introduction of Other Therapeutic Substance into Peripheral Vein, Percutaneous Approach (ICD-10-PCS; principal; 2022-07-12)
DX: R45.851 Suicidal ideations (principal)
CPT/HCPCS: 36415; 80053; 80307; 84439; 84443; 84484; 85025; 93005; 93010; 99285-25; C9803-CS; U0003; U0005

== ENCOUNTER 2022-09-26 20:51 | Inpatient (IN) | payer OTHER ==
[2022-09-26 21:34] VITALS: BMI 32.6
[2022-09-26] MEDS ORDERED: IBUPROFEN 400 MG TABLET (FP) PO PRN (22:34)
[2022-09-26] MEDS ORDERED: POLYETHYLENE GLYCOL (HEALTHYLAX) 3350 17 GM PACKET PO PRN (22:34)
[2022-09-26] MEDS ORDERED: P-EPHED 60MG/TRIPROLIDI 2.5MG TABLET PO PRN (22:34)
[2022-09-26] MEDS ORDERED: LOPERAMIDE HCL 2 MG CAPSULE PO PRN (22:34)
[2022-09-26] MEDS ORDERED: hydrOXYzine PAMOATE 25 MG CAPSULE (FP) PO PRN (22:34)
[2022-09-26] MEDS ORDERED: MAGNESIUM HYDROX 2400MG/30ML ORAL SUSPENSION 30 ML CUP PO PRN (22:34)
[2022-09-26] MEDS ORDERED: ACETAMINOPHEN 325 MG TABLET (FP) PO PRN (22:34)
[2022-09-26] MEDS ORDERED: BENZOCAINE/MENTHOL (CHLORASEPTIC ) LOZENGE MM PRN (22:34)
[2022-09-26] MEDS ORDERED: guaiFENesin 200 MG/10 ML 10 ML UNIT-DOSE CUPS PO PRN (22:34)
[2022-09-26] MEDS ORDERED: MAG HYDROX/AL HYDROX/SIMETH 30 ML UNIT-DOSE CUP PO PRN (22:34)
[2022-09-27] MEDS: MELATONIN 5 MG TABLETS PO SCH ×2 (02:15→21:41)
[2022-09-27] MEDS: PRENATAL VITAMINS W/ FOLIC ACID TABLET (FP) PO SCH (10:22)
[2022-09-27 11:11] LABS: HEMATOCRIT 40.9 % (35.4-49); HEMOGLOBIN 13.3 GM/dL (11.7-16.9); MCHC 32.6 g/dl (32.0-35.9); MEAN PLT VOLUME 8.3 fl (7.5-11.1); PLATELET COUNT 405 10^3/uL (134-434); RBC 4.93 M/mm3 (4.00-5.60); WHITE BLOOD COUNT 7.2 K/mm3 (4.0-10.0)
[2022-09-27 11:12] LABS: PH,URINE 6.5 (5.0-8.0); URINE APPEARANCE CLEAR; URINE BILIRUBIN NEGATIVE (NEGATIVE); URINE COLOR YELLOW; URINE GLUCOSE (UA) NEGATIVE (NEGATIVE); URINE KETONE 1+ (NEGATIVE); URINE LEUK ESTERASE NEGATIVE (NEGATIVE); URINE NITRITE NEGATIVE (NEGATIVE); URINE PROTEIN TRACE (NEGATIVE); URINE UROBILINOGEN 0.2 mg/dL (0.2-1.0)
[2022-09-27 11:22] LABS: CALCIUM 9.1 mg/dL (8.5-10.1)
[2022-09-27 11:23] LABS: ALBUMIN 3.4 g/dl (3.4-5.0)
[2022-09-27 11:24] LABS: BLOOD UREA NITROGEN 20.2 mg/dL (7-18)
[2022-09-27 11:27] LABS: BILIRUBIN,TOTAL 0.6 mg/dL (0.2-1); TOT PROT 6.6 g/dl (6.4-8.2)
[2022-09-27 11:42] LABS: SYPHILIS W/ RPR CONF NON-REACTIVE (NONREACTIVE)
[2022-09-27] MEDS: THIAMINE HCL 100 MG TABLET (FP) PO SCH (21:41)
[2022-09-27] MEDS: risperiDONE 2 MG TABLET PO SCH (21:42)
[2022-09-28 07:49] VITALS: RESP 18
[2022-09-28] MEDS: PRENATAL VITAMINS W/ FOLIC ACID TABLET (FP) PO SCH (09:27)
[2022-09-28] MEDS ORDERED: PRENATAL VITAMINS W/ FOLIC ACID TABLET (FP) PO PRN (12:10)
[2022-09-28] MEDS ORDERED: NICOTINE POLACRILEX 2 MG GUM BUC PRN (15:31)
[2022-09-28] MEDS: MELATONIN 5 MG TABLETS PO SCH (21:22)
[2022-09-28] MEDS: THIAMINE HCL 100 MG TABLET (FP) PO SCH (21:22)
[2022-09-28] MEDS: risperiDONE 2 MG TABLET PO SCH (21:22)
[2022-09-29] MEDS: NICOTINE 10 MG CARTRIDGE (INHALER) IH PRN (13:58)
[2022-09-29] MEDS: risperiDONE 2 MG TABLET PO SCH (21:34)
[2022-09-29] MEDS: THIAMINE HCL 100 MG TABLET (FP) PO SCH (21:34)
[2022-09-29] MEDS: MELATONIN 5 MG TABLETS PO SCH (21:34)
[2022-09-30 07:02] VITALS: BP 124/79; PULSE 88; TEMP 97.1
[2022-09-30] MEDS: NICOTINE 10 MG CARTRIDGE (INHALER) IH PRN (09:57)
[2022-09-30] MEDS ORDERED: risperiDONE 2 MG TABLET PO SCH (22:00)
== END 2022-09-30 10:01 | disposition home or self-care (01) | DRG 772 ==
LOC: YASAS 20:51 → Y3E 09-27 01:58
PROVIDERS: ADMIT Psychiatry & Neurology Pain Medicine; ATTEND Allergy & Immunology
PROC: HZ42ZZZ Group Counseling for Substance Abuse Treatment, Cognitive-Behavioral (ICD-10-PCS; principal; 2022-09-27)
DX: F16.20 Hallucinogen dependence, uncomplicated (principal); F17.210 Nicotine dependence, cigarettes, uncomplicated; F31.9 Bipolar disorder, unspecified; F20.9 Schizophrenia, unspecified; F43.10 Post-traumatic stress disorder, unspecified; Z56.0 Unemployment, unspecified; Z59.00 Homelessness unspecified
CPT/HCPCS: 36415; 80053; 81003; 85027; 86780; 86803; C9803-CS; U0003; U0005

== ENCOUNTER 2022-10-01 02:07 | Emergency (ER) | payer OTHER ==
[2022-10-01 02:19] VITALS: BP 135/90; PULSE 86; RESP 18; TEMP 98; BMI 31.9
[2022-10-01] MEDS ORDERED: KETOROLAC TROMETHAMINE 30 MG/1 ML VIAL IM ONE (03:37)
[2022-10-01] MEDS ORDERED: KETOROLAC TROMETHAMINE 30 MG/1 ML VIAL ONE (03:49)
== END 2022-10-01 03:59 | disposition home or self-care (01) ==
LOC: JER 02:07
PROC: 3E023GC Introduction of Other Therapeutic Substance into Muscle, Percutaneous Approach (ICD-10-PCS; principal; 2022-10-01)
DX: M25.511 Pain in right shoulder (principal)
CPT/HCPCS: 73030-TC-RT-FY; 99284-25

== ENCOUNTER 2023-01-09 22:04 | Inpatient (IN) | payer OTHER ==
[2023-01-09 22:50] VITALS: BMI 31.1
[2023-01-10] MEDS ORDERED: POLYETHYLENE GLYCOL (HEALTHYLAX) 3350 17 GM PACKET PO PRN
[2023-01-10] MEDS ORDERED: P-EPHED 60MG/TRIPROLIDI 2.5MG TABLET PO PRN
[2023-01-10] MEDS ORDERED: IBUPROFEN 600 MG TABLET (FP) PO PRN
[2023-01-10] MEDS ORDERED: IBUPROFEN 400 MG TABLET (FP) PO PRN
[2023-01-10] MEDS ORDERED: MAGNESIUM HYDROX 2400MG/30ML ORAL SUSPENSION 30 ML CUP PO PRN
[2023-01-10] MEDS ORDERED: ACETAMINOPHEN 325 MG TABLET (FP) PO PRN ×2
[2023-01-10] MEDS ORDERED: MELATONIN 5 MG TABLETS PO PRN
[2023-01-10] MEDS ORDERED: METHOCARBAMOL 500 MG TABLET PO PRN
[2023-01-10] MEDS ORDERED: hydrOXYzine PAMOATE 25 MG CAPSULE (FP) PO PRN
[2023-01-10] MEDS ORDERED: BISMUTH SUBSALICYLATE 524 MG/30 ML PO PRN
[2023-01-10] MEDS ORDERED: LOPERAMIDE HCL 2 MG CAPSULE PO PRN
[2023-01-10] MEDS ORDERED: ONDANSETRON *ODT* 4 MG TABLET SL PRN
[2023-01-10] MEDS ORDERED: MAG HYDROX/AL HYDROX/SIMETH 30 ML UNIT-DOSE CUP PO PRN
[2023-01-10] MEDS ORDERED: guaiFENesin 200 MG/10 ML 10 ML UNIT-DOSE CUPS PO PRN
[2023-01-10] MEDS ORDERED: BENZOCAINE/MENTHOL (CHLORASEPTIC ) LOZENGE MM PRN
[2023-01-10] MEDS ORDERED: DICYCLOMINE HCL 10 MG CAPSULE PO PRN
[2023-01-10] MEDS ORDERED: NICOTINE POLACRILEX 2 MG GUM BUC PRN
[2023-01-10 05:54] VITALS: RESP 18
[2023-01-10] MEDS ORDERED: PRENATAL VITAMINS W/ FOLIC ACID TABLET (FP) PO ONE (10:25)
[2023-01-10] MEDS: PRENATAL VITAMINS W/ FOLIC ACID TABLET (FP) PO SCH (10:27)
[2023-01-10] MEDS ORDERED: TUBERCULIN PPD 5 TU/0.1ML VIAL ID ONE (12:09)
[2023-01-10 12:37] VITALS: TEMP 97.3
[2023-01-10 15:03] LABS: HEMATOCRIT 38.9 % (35.4-49); HEMOGLOBIN 12.6 GM/dL (11.7-16.9); MCH 26.1 pg (25.7-33.7); MCHC 32.3 g/dl (32.0-35.9); MEAN CELL VOLUME 80.7 fl (80-96); MEAN PLT VOLUME 8.7 fl (7.5-11.1); PLATELET COUNT 317 10^3/uL (134-434); RBC 4.81 M/mm3 (4.00-5.60); RDW 15.6 % (11.9-15.9); WHITE BLOOD COUNT 7.5 K/mm3 (4.0-10.0)
[2023-01-10 15:12] LABS: BLOOD UREA NITROGEN 17.2 mg/dL (7-18); CALCIUM 8.6 mg/dL (8.5-10.1)
[2023-01-10 15:13] LABS: ALBUMIN 3.6 g/dl (3.4-5.0)
[2023-01-10 15:16] LABS: CREATININE 0.9 mg/dL (0.55-1.3)
[2023-01-10 15:17] LABS: BILIRUBIN,TOTAL 0.4 mg/dL (0.2-1); TOT PROT 6.7 g/dl (6.4-8.2)
[2023-01-10] MEDS: NICOTINE 10 MG CARTRIDGE (INHALER) IH PRN (15:36)
[2023-01-10] MEDS: THIAMINE HCL 100 MG TABLET (FP) PO SCH (23:08)
[2023-01-11] MEDS: NICOTINE 10 MG CARTRIDGE (INHALER) IH PRN (06:23)
[2023-01-11 07:04] VITALS: BP 133/84; PULSE 80
[2023-01-11] MEDS: PRENATAL VITAMINS W/ FOLIC ACID TABLET (FP) PO SCH (10:44)
[2023-01-11] MEDS: THIAMINE HCL 100 MG TABLET (FP) PO SCH (22:36)
== END 2023-01-11 23:50 | disposition left against medical advice (07) | DRG 770 ==
LOC: YASAS 22:04 → Y3W 01-10 11:40
PROVIDERS: ADMIT Allergy & Immunology; ATTEND Psychiatry & Neurology Pain Medicine
PROC: HZ42ZZZ Group Counseling for Substance Abuse Treatment, Cognitive-Behavioral (ICD-10-PCS; principal; 2023-01-10)
DX: F10.20 Alcohol dependence, uncomplicated (principal); F15.20 Other stimulant dependence, uncomplicated; F16.20 Hallucinogen dependence, uncomplicated; F12.20 Cannabis dependence, uncomplicated; F17.210 Nicotine dependence, cigarettes, uncomplicated; F20.9 Schizophrenia, unspecified; F31.9 Bipolar disorder, unspecified; F43.10 Post-traumatic stress disorder, unspecified; F63.81 Intermittent explosive disorder
CPT/HCPCS: 36415; 80053; 85027; 86780; 87811; C9803-CS; U0003; U0005

== ENCOUNTER 2023-01-19 07:16 | Inpatient (IN) | payer OTHER ==
[2023-01-19] MEDS ORDERED: CHARCOAL/SORBITOL SOLUTION 25 GM/120 ML BTL PO ONE (07:31)
[2023-01-19] MEDS ORDERED: CHARCOAL/SORBITOL SOLUTION 25 GM/120 ML BTL ONE (07:36)
[2023-01-19] MEDS ORDERED: MIDAZOLAM HCL 5 MG/1 ML Single Dose Vial IM ONE (07:38)
[2023-01-19] MEDS ORDERED: MIDAZOLAM HCL 5 MG/1 ML Single Dose Vial ONE (07:54)
[2023-01-19] MEDS ORDERED: LORazepam 2 MG TABLET PO ONE (08:08)
[2023-01-19 08:24] LABS: VENOUS BASE EXCESS 0.2 mmol/L (-2-2); VENOUS O2 SATURATION 78.7 % (70-80); VENOUS PCO2 44.2 mmHg (38-52); VENOUS PH 7.38 (7.310-7.410)
[2023-01-19] MEDS ORDERED: LACTATED RINGERS SOLUTION 1,000 ML/1,000 ML INFUS.BAG IV SCH ×4 (08:30→10:30)
[2023-01-19 08:36] LABS: BASO % 0.6 % (0-2.0); EOS % 1.3 % (0-4.5); HEMOGLOBIN 11.9 GM/dL (11.7-16.9); LYMPH % 22.1 % (8-40); MCH 27.2 pg (25.7-33.7); MCHC 34.1 g/dl (32.0-35.9); MEAN CELL VOLUME 79.9 fl (80-96); MONO % 9.1 % (3.8-10.2); NEUT % 66.9 % (42.8-82.8); PLATELET COUNT 332 10^3/uL (134-434); RBC 4.39 M/mm3 (4.00-5.60); RDW 15.7 % (11.9-15.9); WHITE BLOOD COUNT 7.9 K/mm3 (4.0-10.0)
[2023-01-19 08:38] LABS: INR 1.17 (0.83-1.09); PROTHROMBIN TIME (PATIENT) 13.5 SEC (9.7-13.0)
[2023-01-19 08:41] LABS: ACTIVATED PTT 31.1 SECONDS (25.2-36.5)
[2023-01-19 08:50] LABS: CHLORIDE 105 mmol/L (98-107); SODIUM 139 mmol/L (136-145)
[2023-01-19 08:52] LABS: ANION GAP 8 MMOL/L (8-16); CALCIUM 8.6 mg/dL (8.5-10.1); CO2 26 mmol/L (21-32); MAGNESIUM 2.3 mg/dL (1.8-2.4)
[2023-01-19 08:53] LABS: ALBUMIN 3.5 g/dl (3.4-5.0); BLOOD UREA NITROGEN 18.9 mg/dL (7-18); GLUCOSE,RANDOM 156 mg/dL (74-106)
[2023-01-19 08:55] LABS: SGOT/AST 29 U/L (15-37); SGPT/ALT 30 U/L (13-61)
[2023-01-19 08:56] LABS: CREATININE 1.1 mg/dL (0.55-1.3)
[2023-01-19 08:57] LABS: TOT PROT 6.5 g/dl (6.4-8.2)
[2023-01-19 08:58] LABS: BILIRUBIN,TOTAL 0.7 mg/dL (0.2-1)
[2023-01-19 08:59] LABS: ALK PHOS 49 U/L (45-117)
[2023-01-19] MEDS ORDERED: LORazepam 2 MG/ML SDV VIAL IVPUSH ONE ×2 (10:49→21:39)
[2023-01-19] MEDS ORDERED: MIDAZOLAM HCL 2 MG/2 ML SINGLE DOSE VIAL ONE ×2 (11:04→11:21)
[2023-01-19] MEDS ORDERED: MIDAZOLAM HCL 2 MG/2 ML SINGLE DOSE VIAL IVPUSH ONE ×3 (11:07→22:58)
[2023-01-19] MEDS ORDERED: NOREPINEPHRINE BITARTRATE 4 MG/4 ML ML IV ONE ×2 (12:07→13:55)
[2023-01-19] MEDS ORDERED: NOREPINEPHRINE BITARTRATE 4,000 MCG in DEXTROSE 5%-WATER - 496 ML IV SCH (12:30)
[2023-01-19 13:22] LABS: URINE APPEARANCE CLEAR; URINE BILIRUBIN NEGATIVE (NEGATIVE); URINE COLOR YELLOW; URINE GLUCOSE (UA) NEGATIVE (NEGATIVE); URINE KETONE TRACE (NEGATIVE); URINE LEUK ESTERASE NEGATIVE (NEGATIVE); URINE NITRITE NEGATIVE (NEGATIVE); URINE PROTEIN TRACE (NEGATIVE); URINE UROBILINOGEN 0.2 mg/dL (0.2-1.0)
[2023-01-19 13:31] LABS: METHADONE, UR NEGATIVE (NEGATIVE); OPIATES, URI NEGATIVE (NEGATIVE); URINE AMPHETAMINES NEGATIVE (NEGATIVE); URINE BARBITURATES NEGATIVE (NEGATIVE)
[2023-01-19 13:43] LABS: COCAINE, UR NEGATIVE (NEGATIVE); PHENCYCLIDINE,URINE POSITIVE (NEGATIVE); URINE BENZODIAZEPINES POSITIVE (NEGATIVE)
[2023-01-19] MEDS: MUPIROCIN 2% TOPICAL OINTMENT FOR DECOLONIZATION NS SCH (21:47)
[2023-01-19] MEDS: CHLORHEXIDINE GLUCONATE 4% CLEANSER FOR DECOLONIZATION TP SCH (21:48)
[2023-01-19] MEDS: HEPARIN NA (PORCINE) 5,000 UNITS/ML 1ML VIAL SQ SCH (21:48)
[2023-01-19] MEDS ORDERED: DEXMEDETOMIDINE PREMIX 400 MCG/100 ML BAG IVPB SCH (23:00)
[2023-01-20] MEDS: HEPARIN NA (PORCINE) 5,000 UNITS/ML 1ML VIAL SQ SCH ×4 (06:11→21:20)
[2023-01-20 07:12] LABS: BASO % 0.4 % (0-2.0); EOS % 1.8 % (0-4.5); HEMATOCRIT 32.7 % (35.4-49); HEMOGLOBIN 11.2 GM/dL (11.7-16.9); LYMPH % 16.3 % (8-40); MCH 27.7 pg (25.7-33.7); MCHC 34.4 g/dl (32.0-35.9); MEAN CELL VOLUME 80.6 fl (80-96); MONO % 9.1 % (3.8-10.2); NEUT % 72.4 % (42.8-82.8); PLATELET COUNT 293 10^3/uL (134-434); RBC 4.06 M/mm3 (4.00-5.60); RDW 15.9 % (11.9-15.9); WHITE BLOOD COUNT 8.7 K/mm3 (4.0-10.0)
[2023-01-20 07:23] LABS: INR 1.15 (0.83-1.09); PROTHROMBIN TIME (PATIENT) 13.3 SEC (9.7-13.0)
[2023-01-20 07:37] LABS: ALBUMIN 2.9 g/dl (3.4-5.0); BLOOD UREA NITROGEN 13.4 mg/dL (7-18); MAGNESIUM 2.2 mg/dL (1.8-2.4)
[2023-01-20 07:40] LABS: PHOSPHOROUS 2.6 mg/dL (2.5-4.9)
[2023-01-20 07:41] LABS: BILIRUBIN,TOTAL 0.8 mg/dL (0.2-1); TOT PROT 5.7 g/dl (6.4-8.2)
[2023-01-20 07:42] LABS: CREATININE 0.7 mg/dL (0.55-1.3)
[2023-01-20] MEDS ORDERED: SODIUM CHLORIDE 1,000 ML IV STA (08:29)
[2023-01-20] MEDS: LORazepam 2 MG/ML SDV VIAL IVPUSH PRN ×3 (09:50→22:32)
[2023-01-20] MEDS ORDERED: SODIUM CHLORIDE 1,000 ML IV SCH (10:00)
[2023-01-20] MEDS: MUPIROCIN 2% TOPICAL OINTMENT FOR DECOLONIZATION NS SCH ×2 (10:30→21:20)
[2023-01-20] MEDS ORDERED: RAPID SEQUENCE INTUBATION KIT NR ONE (15:48)
[2023-01-20 15:50] VITALS: BMI 32.3
[2023-01-20] MEDS: CHLORHEXIDINE GLUCONATE 4% CLEANSER FOR DECOLONIZATION TP SCH (21:20)
[2023-01-20] MEDS ORDERED: risperiDONE 2 MG TABLET PO SCH (22:00)
[2023-01-21] MEDS: LORazepam 2 MG/ML SDV VIAL IVPUSH PRN (05:06)
[2023-01-21] MEDS: HEPARIN NA (PORCINE) 5,000 UNITS/ML 1ML VIAL SQ SCH ×3 (05:13→21:06)
[2023-01-21] MEDS: MUPIROCIN 2% TOPICAL OINTMENT FOR DECOLONIZATION NS SCH ×2 (10:36→21:06)
[2023-01-21] MEDS ORDERED: LORazepam 2 MG/ML SDV VIAL IM PRN (19:26)
[2023-01-21] MEDS: CHLORHEXIDINE GLUCONATE 4% CLEANSER FOR DECOLONIZATION TP SCH (21:07)
[2023-01-22] MEDS: HEPARIN NA (PORCINE) 5,000 UNITS/ML 1ML VIAL SQ SCH ×3 (06:24→21:17)
[2023-01-22] MEDS ORDERED: HALOPERIDOL LACTATE 5 MG/ML IM PRN (10:17)
[2023-01-22 12:57] LABS: HIV INTERPRETATION NEGATIVE (NEGATIVE)
[2023-01-22 12:58] LABS: BASO % 0.3 % (0-2.0); EOS % 1.3 % (0-4.5); HEMATOCRIT 37.1 % (35.4-49); HEMOGLOBIN 12.6 GM/dL (11.7-16.9); LYMPH % 16.3 % (8-40); MCH 27.2 pg (25.7-33.7); MCHC 33.9 g/dl (32.0-35.9); MEAN CELL VOLUME 80.2 fl (80-96); MEAN PLT VOLUME 8.3 fl (7.5-11.1); MONO % 7.7 % (3.8-10.2); NEUT % 74.4 % (42.8-82.8); PLATELET COUNT 373 10^3/uL (134-434); RBC 4.63 M/mm3 (4.00-5.60); RDW 15.2 % (11.9-15.9); WHITE BLOOD COUNT 7.6 K/mm3 (4.0-10.0)
[2023-01-22] MEDS: MUPIROCIN 2% TOPICAL OINTMENT FOR DECOLONIZATION NS SCH (21:17)
[2023-01-22] MEDS ORDERED: CHLORHEXIDINE GLUCONATE 4% CLEANSER FOR DECOLONIZATION TP SCH (22:00)
[2023-01-23] MEDS: HEPARIN NA (PORCINE) 5,000 UNITS/ML 1ML VIAL SQ SCH ×3 (05:19→21:29)
[2023-01-23 06:47] LABS: BASO % 0.5 % (0-2.0); EOS % 1.3 % (0-4.5); HEMOGLOBIN 13.3 GM/dL (11.7-16.9); LYMPH % 24.1 % (8-40); MCH 27.3 pg (25.7-33.7); MEAN CELL VOLUME 80.4 fl (80-96); MEAN PLT VOLUME 8.2 fl (7.5-11.1); NEUT % 65.1 % (42.8-82.8); PLATELET COUNT 393 10^3/uL (134-434); RBC 4.85 M/mm3 (4.00-5.60); RDW 15.4 % (11.9-15.9); WHITE BLOOD COUNT 9.2 K/mm3 (4.0-10.0)
[2023-01-23 07:02] LABS: ALBUMIN 3.4 g/dl (3.4-5.0); CALCIUM 8.9 mg/dL (8.5-10.1)
[2023-01-23 07:05] LABS: CREATININE 0.9 mg/dL (0.55-1.3)
[2023-01-23 07:07] LABS: BILIRUBIN,TOTAL 0.3 mg/dL (0.2-1); TOT PROT 7.2 g/dl (6.4-8.2)
[2023-01-23 07:13] LABS: BLOOD UREA NITROGEN 16.8 mg/dL (7-18)
[2023-01-23] MEDS: MUPIROCIN 2% TOPICAL OINTMENT FOR DECOLONIZATION NS SCH (09:43)
[2023-01-23] MEDS ORDERED: HALOPERIDOL LACTATE 5 MG/ML IM PRN (14:31)
[2023-01-23 17:57] LABS: SYPHILIS W/ RPR CONF NON-REACTIVE (NONREACTIVE)
[2023-01-23] MEDS ORDERED: CHLORHEXIDINE GLUCONATE 4% CLEANSER FOR DECOLONIZATION TP SCH (22:00)
[2023-01-24] MEDS: HEPARIN NA (PORCINE) 5,000 UNITS/ML 1ML VIAL SQ SCH ×3 (06:32→21:16)
[2023-01-24 09:08] LABS: BASO % 0.7 % (0-2.0); EOS % 1.3 % (0-4.5); HEMATOCRIT 39.6 % (35.4-49); HEMOGLOBIN 13.4 GM/dL (11.7-16.9); MCH 27.2 pg (25.7-33.7); MCHC 33.8 g/dl (32.0-35.9); MEAN CELL VOLUME 80.4 fl (80-96); MEAN PLT VOLUME 8.9 fl (7.5-11.1); MONO % 7.5 % (3.8-10.2); NEUT % 66.5 % (42.8-82.8); PLATELET COUNT 393 10^3/uL (134-434); RBC 4.93 M/mm3 (4.00-5.60); RDW 15.1 % (11.9-15.9); WHITE BLOOD COUNT 7.9 K/mm3 (4.0-10.0)
[2023-01-24 09:36] LABS: ALBUMIN 3.4 g/dl (3.4-5.0); BLOOD UREA NITROGEN 16.9 mg/dL (7-18)
[2023-01-24 09:37] LABS: CALCIUM 8.6 mg/dL (8.5-10.1); MAGNESIUM 2.1 mg/dL (1.8-2.4)
[2023-01-24 09:39] LABS: CREATININE 0.8 mg/dL (0.55-1.3); PHOSPHOROUS 3.6 mg/dL (2.5-4.9)
[2023-01-24 09:41] LABS: BILIRUBIN,TOTAL 0.4 mg/dL (0.2-1); TOT PROT 7.1 g/dl (6.4-8.2)
[2023-01-25] MEDS: HEPARIN NA (PORCINE) 5,000 UNITS/ML 1ML VIAL SQ SCH ×3 (06:17→23:10)
[2023-01-25] MEDS: MUPIROCIN 2% TOPICAL OINTMENT FOR DECOLONIZATION NS SCH (10:13)
[2023-01-25 10:20] LABS: BASO % 0.6 % (0-2.0); EOS % 1.3 % (0-4.5); HEMATOCRIT 41.4 % (35.4-49); HEMOGLOBIN 13.8 GM/dL (11.7-16.9); LYMPH % 24.3 % (8-40); MCH 26.9 pg (25.7-33.7); MCHC 33.4 g/dl (32.0-35.9); MEAN CELL VOLUME 80.6 fl (80-96); MEAN PLT VOLUME 8.2 fl (7.5-11.1); MONO % 5.6 % (3.8-10.2); NEUT % 68.2 % (42.8-82.8); PLATELET COUNT 467 10^3/uL (134-434); RBC 5.13 M/mm3 (4.00-5.60); RDW 15.5 % (11.9-15.9); WHITE BLOOD COUNT 7.9 K/mm3 (4.0-10.0)
[2023-01-25 10:46] LABS: ALBUMIN 3.6 g/dl (3.4-5.0); BLOOD UREA NITROGEN 18.5 mg/dL (7-18); CALCIUM 8.9 mg/dL (8.5-10.1)
[2023-01-25 10:47] LABS: MAGNESIUM 1.9 mg/dL (1.8-2.4)
[2023-01-25 10:49] LABS: CREATININE 0.9 mg/dL (0.55-1.3); PHOSPHOROUS 2.8 mg/dL (2.5-4.9)
[2023-01-25 10:51] LABS: BILIRUBIN,TOTAL 0.7 mg/dL (0.2-1); TOT PROT 7.6 g/dl (6.4-8.2)
[2023-01-25 11:32] LABS: URINE APPEARANCE CLEAR; URINE BILIRUBIN NEGATIVE (NEGATIVE); URINE COLOR YELLOW; URINE GLUCOSE (UA) NEGATIVE (NEGATIVE); URINE KETONE NEGATIVE (NEGATIVE); URINE LEUK ESTERASE NEGATIVE (NEGATIVE); URINE NITRITE NEGATIVE (NEGATIVE); URINE PROTEIN NEGATIVE (NEGATIVE); URINE UROBILINOGEN 0.2 mg/dL (0.2-1.0)
[2023-01-26] MEDS: MUPIROCIN 2% TOPICAL OINTMENT FOR DECOLONIZATION NS SCH ×2 (07:17→07:18)
[2023-01-26] MEDS: HEPARIN NA (PORCINE) 5,000 UNITS/ML 1ML VIAL SQ SCH ×2 (07:54→14:55)
[2023-01-26 12:23] VITALS: BP 138/87; PULSE 72; RESP 18; TEMP 98.1
== END 2023-01-26 15:00 | disposition home or self-care (01) | DRG 812 ==
LOC: JER 07:16 → JERBED 12:53 → JICU 13:42 → J8W 01-23 13:12
PROVIDERS: ADMIT Internal Medicine Pulmonary Disease; ATTEND Internal Medicine
DX: T43.022A Poisoning by tetracyclic antidepressants, intentional self-harm, initial encounter (principal); T44.6X2A Poisoning by alpha-adrenoreceptor antagonists, intentional self-harm, initial encounter; T43.592A Poisoning by other antipsychotics and neuroleptics, intentional self-harm, initial encounter; F20.9 Schizophrenia, unspecified; F31.9 Bipolar disorder, unspecified; R45.1 Restlessness and agitation; F19.10 Other psychoactive substance abuse, uncomplicated; F14.10 Cocaine abuse, uncomplicated; F16.10 Hallucinogen abuse, uncomplicated; R45.851 Suicidal ideations; E86.0 Dehydration; R57.9 Shock, unspecified; Y92.89 Other specified places as the place of occurrence of the external cause
CPT/HCPCS: 0241U-QW; 36415; 71045-TC-FY; 80053; 80307; 81003; 82550; 82553; 82803; 83735; 84100; 85025; 85610; 85730; 86780; 86803; 86850; 86900; 86901; 87340; 87389; 93005; 93010; 99291; J1644

== ENCOUNTER 2024-01-02 01:34 | Emergency (ER) | payer OTHER ==
[2024-01-02 02:07] VITALS: BP 127/74; PULSE 101; RESP 18; TEMP 98; BMI 30.4
[2024-01-02] MEDS ORDERED: IBUPROFEN 600 MG TABLET (FP) PO ONE (05:49)
[2024-01-02] MEDS: IBUPROFEN 600 MG TABLET (FP) PO ONE (05:53)
== END 2024-01-02 05:58 | disposition home or self-care (01) ==
LOC: JER 01:34
DX: M25.511 Pain in right shoulder (principal); R55 Syncope and collapse
CPT/HCPCS: 73030-TC-RT-FY; 93005; 93010; 99284-25